=== PATIENT | female | born 1965 | race Hispanic/Latino ===

== ENCOUNTER 2024-09-04 13:38 | Inpatient (IN) | payer OTHER, SELFPAY ==
--- NOTE | ~2024-09-04 | US_ITS ---
EXAM: RENAL ULTRASOUND HISTORY: marked hydro on CT COMPARISON: Reference is made to a CT of the abdomen and pelvis performed 90 minutes earlier, for whi ch bladder decompression was requested followed by bilateral renal ultrasound to ensure resolution of the hydronephrosis seen on CT examination. FINDINGS: RIGHT KIDNEY: 13.8 x 7.7 x 6.2 cm. Severe hydroureteronephrosis persists. LEFT KIDNEY: 12.5 x 6.1 x 4.9 cm Mild hydroureteronephrosis persists. BLADDER: Significant bladder distention with thickened douglas. Despite prolonged interrogation, neither ureteral jet was visualized. IMPRESSION: Severe right-sided and mild left-sided hydroureteronephrosis with persistent bladder distention and n onvisualization of the ureteral jets. Recommend bladder decompression followed by repeat ultrasound to confirm resolution of the aforementi oned hydroureteronephrosis. Reviewed, dictated and finalized at location A. ITY APPRAISER IMPRESSION: Severe right-sided and mild left-sided hydroureteronephrosis with persistent bl adder distention and nonvisualization of the ureteral jets. Recommend bladder decompression followed by repeat ultrasound to confirm resolu tion of the aforementioned hydroureteronephrosis.
--- NOTE | ~2024-09-04 | CT_ITS ---
CLINICAL INDICATION: Lower back pain with urinary tract infection and hematuria COMPARISON: None. TECHNIQUE: Multiple contiguous axial images of the abdomen and pelvis were performed without the admi nistration of intravenous contrast The dose-length product (DLP) was 1661.26 mGy-cm. Automated exposure control and iterative reconstruction technique were employed. FINDINGS/OBSERVATIONS: Visualized lower thorax: The bilateral lung bases are clear. The heart is of normal size, without pericardial effusion. Abdomen: Significant right-sided hydroureteronephrosis without a discrete source of obstruction identified. The bladder is significantly distended with surrounding inflammatory change, consistent with patient' s history and presentation. Small left-sided hydroureteronephrosis, likely secondary to bladder distention. The gallbladder is surgically absent. Colonic diverticulosis without surrounding inflammatory change. Remainder of examination is unremarkable. IMPRESSION: Significant right-sided hydroureteronephrosis without a discrete source of obstruction identified Marked bladder distention with surrounding inflammatory change for which compression and post decompr ession renal ultrasound is suggested. Reviewed, dictated and finalized at location A. VERY ROOM NURSE IMPRESSION: Significant right-sided hydroureteronephrosis without a discrete source of obst ruction identified Marked bladder distention with surrounding inflammatory change for which compre ssion and post decompression renal ultrasound is suggested.
--- NOTE | ~2024-09-04 | NM_ITS ---
EXAMINATION: RIKKI arrieta renal scan DATE: 09/10/2024 13:13 INDICATION: Hydronephrosis. TECHNIQUE: A 0.2 mCi Tc-99m MAG3 was administered IV. 40 mg furosemide was administered IV immediate ly afterward. The patient was scanned in the supine position. A posterior abdominal radionuclide lissy ogram was obtained. A subsequent time course of static images of the kidneys, ureters, and bladder wa s obtained. COMPARISON: CT abdomen and pelvis 09/04/2024, ultrasound 09/07/2024 FINDINGS: The posterior abdominal radionuclide angiogram and sequential static images show normal siz e, position, and morphology of the kidneys. Peak renal parenchymal uptake was 3 min in right kidney a nd 2 min in left kidney (normal peak 3-5 minutes). The relative early renal uptake was 50% on the ri ght and 50% on the left (<40% is abnormal). No abnormalities of the ureters or bladder are seen. T1/2 for clearance of activity from the right kidney and proximal collecting system was 17 minutes. T1/2 for clearance of activity from the left kidney and proximal collecting system was 12 minutes. IMPRESSION: 1. Symmetric kidney function. 2. Moderately delayed contrast clearance on the right, consistent with partial obstruction that is l ikely clinically significant. 3. Mildly delayed contrast clearance on the left, consistent with low grade obstruction of questionab le clinical significance. Reviewed, dictated and finalized at location A. ANY MARKER IMPRESSION: 1. Symmetric kidney function. 2. Moderately delayed contrast clearance on the right, consistent with partial obstruction that is likely clinically significant. 3. Mildly delayed contrast clearance on the left, consistent with low grade obs truction of questionable clinical significance.
--- NOTE | ~2024-09-04 | US_ITS ---
EXAMINATION: US renal BI DATE: 09/07/2024 09:23 INDICATION: Right hydronephrosis and bladder distention. TECHNIQUE: Multiple ultrasound grayscale images of the kidneys were obtained. COMPARISON: None. FINDINGS: The right kidney measures 13.0 x 6.7 x 6.8 cm. The left kidney measures 11.4 x 7.1 x 5.5 cm. The kidn eys demonstrate normal echogenicity. No interval change in severe right-sided and mild left-sided hyd ronephrosis. No stones identified. There is a Kothari catheter within the bladder which is distended on the initial imaging measuring 11.5 x 8.0 x 9.9 cm with calculated volume of 636 mL. There is diffuse bladder wall thickening. The bladder is decompressed following unclamping of the Kothari catheter. Sli ght decrease in moderate right hydronephrosis following decompression of the bladder.. IMPRESSION: 1. Persistent mild left-sided and severe right-sided hydronephrosis with the bladder distended, the with the right hydronephrosis to moderate severity following decompression of the bladder. 2. Diffuse bladder wall thickening which could be due to cystitis or chronic outlet obstruction. Reviewed, dictated and finalized at location [facility]. [employer] IMPRESSION: 1. Persistent mild left-sided and severe right-sided hydronephrosis with the b ladder distended, the with the right hydronephrosis to moderate severity follow ing decompression of the bladder. 2. Diffuse bladder wall thickening which could be due to cystitis or chronic ou tlet obstruction.
--- OUTSIDE RECORDS SUMMARY | 2024-09-04 13:47 | XMS_ITS | Patient Health Summary ---
Author Organization [facility] Address [address] [place] [address] Care Team Providers Care Mail List Librarian Name Role Phone Odalis Mcnally MD Primary Care Provider [phone] Note from [facility],non-owned Affiliates and Associated Physician Practices is amultiple site organization consisting of ambulatory clinics and hospital sitesin [place], [place] and [place]. This disclosure is being madepursuant to the Care Everywhere program and may not contain all information available regarding this patient. Last updated 18.[facility] Allergies No known active allergies Medications * Be aware that medications may not be up to date on this document. Alwaysverify current medications with the patient. * ATORVASTATIN CALCIUM PO * benzonatate (TESSALON) 200 MG capsule(Started 12/01/2018) Take 1 capsule by mouth 3 times daily as needed for Cough Social History Tobacco Use Types Packs/Day Years Used Date Smoking Tobacco: Never Smokeless Tobacco: Never Sex and Gender Information Value Date Recorded Sex Assigned at Not on file Gender Identity Not on file Sexual Orientation Not on file Last Filed Vital Signs Vital Sign Reading Time Taken Comments Blood Pressure 138/80 12/01/2018 5:48 PM CDT Pulse 81 12/01/2018 5:48 PM CDT Temperature 36.7 ??C (98 ??F) 12/01/2018 5:48 PM CDT Respiratory Rate 16 01/20/2018 4:53 PM CDT Oxygen Saturation 98% 12/01/2018 5:48 PM CDT Inhaled Oxygen Concentration - - Weight 102.1 kg (225 lb) 12/01/2018 5:48 PM CDT Height 160 cm (5' 3 ) 12/01/2018 5:48 PM CDT Body Mass Index 39.86 12/01/2018 5:48 PM CDT Procedures * PULSE OXIMETRY - POINT OF CARE (AMB)(Performed 12/01/2018) Performed for Acute URI Results * PULSE OXIMETRY - POINT OF CARE (AMB) (12/01/2018) Oximetry POCT 98 0 - 100 % QC Verified Yes Yes Blood BLOOD SPECIMEN / Unknown 12/01/2018 Megan Shaikh APRN-[employer] DIRECT[facility] LAB - POINT OF CARE ORDERABLES Care Teams Mail List Librarian Relationship Specialty Start Date End Date Odalis Mcnally MD [address] [place] [phone] PCP - General Family Medicine 01/20/18
--- OUTSIDE RECORDS SUMMARY | 2024-09-04 13:47 | XMS_ITS | Data Portability ---
Author Organization [facility] [employer], Main Office Address [address] [place] [address] Assessment No assessment recorded. Plan of Treatment Reminders Order Date Submit Date Provider Last Modified By Organization Details Last Modified Time Details Appointments None recorded. Lab pap, IG + reflex HR HPV 2022 023 ANGELES [facility], [address], [address], [place], [address], 3 11:14:24 noninvasive colorectal cancer DNA + occult blood screening, QL, stool 2022 023 [email or web address] [address], [address], [place], [address], 3 08:32:59 TSH + free T4, serum 2023 024 [facility], [address], [address], [place], [address], 4 08:28:52 HbA1c (hemoglobin A1c), blood 2023 024 [email or web address], [address], [address], [place], [address], 4 08:28:52 noninvasive colorectal cancer DNA + occult blood screening, QL, stool 2023 024 [facility] (Cologuard Orders Only), [address], [address], [place], [address], 4 13:59:23 lipid panel, serum 2023 024 [facility], [address], [address], [place], [address], 4 08:28:52 CMP, serum or plasma 2023 024 [facility], [address], [address], [place], [address], 4 08:28:52 HbA1c (hemoglobin A1c), blood 2023 024 [facility], [address], [address], [place], [address], 4 08:23:58 urinalysis, dipstick 2023 024 [facility], [address] [place] [address], [address], 4 09:17:25 pap, IG + reflex HR HPV 2024 025 [facility], [address], [address], [place], [address], 5 23:15:07 urinalysis, dipstick 2024 025 [facility], [address] [place] [address], [address], 5 09:31:03 Referral None recorded. Procedures None recorded. Surgeries None recorded. Imaging MAMMO, screening, digital, bilateral - Please call pt to schedule 2023 [email or web address] [place] [address] ([facility] Sched[facility]), [address] [place], [address], 4 10:03:46 Medication Orders nitrofurant oin macrocrysta l 100 mg capsule 2023 024 [facility], [address] [place] [address], [address], 5 08:59:17 metformin ER 500 mg tablet,exte nded release 24 hr 2023 024 [facility], [address] [place] [address], [address], 4 08:59:46 losartan 50 mg tablet 2023 024 [facility], [address] [place] [address], [address], 4 08:59:45 atorvastati n 20 mg tablet 2023 024 [facility], [address] [place] [address], [address], 4 08:59:46 Macrobid 100 mg capsule 2024 025 [facility], [address] [place] [address], [address], 5 09:13:14 Patient TargetsNo targets recorded. Patient Instructions Encounter Date Encounter Id Patient Instructions Last Modified By Organization Details Last Modified Time 05/18/2023 [id number] FU annually for wwe with pap. [email or web address] Not available 05/18/2023 08:59:18 12/28/2023 [id number] type 2 diabetes: care instructions [email or web address] Not available 12/28/2023 08:56:21 Reason for Referral None Reported. Results Created Date Observation Date Name Description Value Unit Range Abnormal Flag Note LastModifiedBy Organization Detail LastModifiedTime 05/17/20 24 05/17/2024 COLOG UARD cologuard result Cancel led - Order d not applic able Not Available [facility] (Cologuard Orders Only) [address], [place], [address], 05/17/2024 08:12:50 11/22/19 24 11/22/2023 COLOG UARD cologuard result Cancel led - Duplic ate Order not applic able Not Available [facility] (Cologuard Orders Only) [address], [place], [address], 11/22/2023 13:59:23 05/06/20 23 05/06/2023 COMPR EHENS SKIP METAB OLIC PANEL glucose 113 mg/dL 65-99 high Fasti ng refer ence inter beau For someo ne witho ut known diabe yue, a gluco se value betwe en 100 and 125 mg/dL is consi stent with predi abete s and shoul d be confi rmed with a follo w-up test. Not Available [address], [address], 05/06/2023 22:21:00 05/06/20 23 05/06/2023 COMPR EHENS SKIP METAB OLIC PANEL urea nitrogen (BUN) 16 mg/dL 7-25 normal Not Available [address], [address], 05/06/2023 22:21:00 05/06/20 23 05/06/2023 COMPR EHENS SKIP METAB OLIC PANEL creatinine 0.66 mg/dL 0.50-1 .03 normal Not Available [address], [address], 05/06/2023 22:21:00 05/06/20 23 05/06/2023 COMPR EHENS SKIP METAB OLIC PANEL eGFR 102 mL/mi n/1.7 3m2 > or = 60 normal Not Available [address], [address], 05/06/2023 22:21:00 05/06/20 23 05/06/2023 COMPR EHENS SKIP METAB OLIC PANEL BUN/creatini ne ratio SEE NOTE: (calc ) 6-22 Not Repor rivera: BUN and Creat inine are withi n refer ence range . Not Available [address], [address], 05/06/2023 22:21:00 05/06/20 23 05/06/2023 COMPR EHENS SKIP METAB OLIC PANEL sodium 139 mmol/ L 135-14 6 normal Not Available [address], [address], 05/06/2023 22:21:00 05/06/20 23 05/06/2023 COMPR EHENS SKIP METAB OLIC PANEL potassium 4.2 mmol/ L 3.5-5. 3 normal Not Available [address], [address], 05/06/2023 22:21:00 05/06/20 23 05/06/2023 COMPR EHENS SKIP METAB OLIC PANEL chloride 104 mmol/ L 98-110 normal Not Available [address], [address], 05/06/2023 22:21:00 05/06/20 23 05/06/2023 COMPR EHENS SKIP METAB OLIC PANEL carbon dioxide 28 mmol/ L 20-32 normal Not Available [address], [address], 05/06/2023 22:21:00 05/06/20 23 05/06/2023 COMPR EHENS SKIP METAB OLIC PANEL calcium 9.3 mg/dL 8.6-10 .4 normal Not Available [address], [address], 05/06/2023 22:21:00 05/06/20 23 05/06/2023 COMPR EHENS SKIP METAB OLIC PANEL protein, total 7.4 g/dL 6.1-8. 1 normal Not Available [address], [address], 05/06/2023 22:21:00 05/06/20 23 05/06/2023 COMPR EHENS SKIP METAB OLIC PANEL albumin 4.0 g/dL 3.6-5. 1 normal Not Available [address], [address], 05/06/2023 22:21:00 05/06/20 23 05/06/2023 COMPR EHENS SKIP METAB OLIC PANEL globulin 3.4 g/dL_ (calc ) 1.9-3. 7 normal Not Available [address], [address], 05/06/2023 22:21:00 05/06/20 23 05/06/2023 COMPR EHENS SKIP METAB OLIC PANEL albumin/glob ulin ratio 1.2 (calc ) 1.0-2. 5 normal Not Available [address], [address], 05/06/2023 22:21:00 05/06/20 23 05/06/2023 COMPR EHENS SKIP METAB OLIC PANEL bilirubin, total 0.7 mg/dL 0.2-1. 2 normal Not Available [address], [address], 05/06/2023 22:21:00 05/06/20 23 05/06/2023 COMPR EHENS SKIP METAB OLIC PANEL alkaline phosphatase 128 U/L 37-153 normal Not Available [facility] [employer] [facility] [employer] [address], [address], 05/06/2023 22:21:00 05/06/20 23 05/06/2023 COMPR EHENS SKIP METAB OLIC PANEL AST 76 U/L 10-35 high Not Available [address], [address], 05/06/2023 22:21:00 05/06/20 23 05/06/2023 COMPR EHENS SKIP METAB OLIC PANEL ALT 91 U/L 6-29 high Not Available [facility] [address] [place], [address], 05/06/2023 22:21:00 05/06/20 23 05/06/2023 HEMOG LOBIN A1C hemoglobin A1C 6.4 %_of_ total _HGB <5.7 high For someo ne witho ut known diabe yue, a hemog lobin A1c value betwe en 5.7% and 6.4% is consi stent with predi abete s and shoul d be confi rmed with a follo w-up test. For someo ne with known diabe yue, a value <7% indic ates that their diabe yue is well contr olled . A1c targe ts shoul d be indiv idual ized based on durat ion of diabe yue, age, comor bid condi tions , and other consi derat ions. This assay resul t is consi stent with an incre ased risk of diabe yue. Curre ntly, no conse nsus exist s regar ding use of hemog lobin A1c for diagn osis of diabe yue for child stew. Not Available [facility] [address] [place], [address], 05/06/2023 22:21:02 05/18/2005/23/2023 PAP THINP REP W/HPV -HR diagnosis: Commen t . TANA VALDIVIA FOR INTRA EPITH ELIAL MESERET Ruby OR PATTIE ACHARYA . Not Available [facility] (Lab) [address] [place], [address], 05/23/2023 11:10:07 05/18/2005/23/2023 PAP THINP REP W/HPV -HR specimen adequacy: Commen t . Satis facto debora for evalu ation . Endoc ervic al and/o r squam ous m etapl astic cells (endo cervi sabas compo nent) are prese nt. Not Available [facility] (Lab) [address] [place], [address], 05/23/2023 11:10:07 05/18/2005/23/2023 PAP THINP REP W/HPV -HR performed by: Daryn brooks . Jim hy Willi ams, Cytot echno logis t (ASCP ) Not Available [facility] (Lab) [address] [place], [address], 05/23/2023 11:10:07 05/18/2005/23/2023 PAP THINP REP W/HPV -HR . . Not Available [facility] (Lab) [address] [place], [address], 05/23/2023 11:10:07 05/18/2005/23/2023 PAP THINP REP W/HPV -HR note: Daryn brooks The Pap smear is a scree mitzy test desig ta to aid in the detec tion of lluvia ligna nt and malig nant condi tions of the uteri ne cervi x. It is not a diagn ostic proce dure and shoul d not be used as the sole means of detec ting cervi sabas cance r. Both false -posi tive and false -nega tive repor ts do occur . . Not Available [facility] (Lab) [address] [place], [address], 05/23/2023 11:10:07 05/18/2005/23/2023 PAP THINP REP W/HPV -HR test methodology: Daryn brooks This liqui d based ThinP rep(R ) pap test was scree ta with the use of an image guide rambo ochoa. Not Available [facility] (Lab) [address] [place], [address], 05/23/2023 11:10:07 05/18/2005/23/2023 PAP THINP REP W/HPV -HR aptima HPV, reflex Negati ve negati ve This nucle ic acid ampli ficat ion test detec ts fourt een high- risk HPV types (16,1 8,31, 33,35 ,39,4 5,51, 52,56 ,58,5 9,66, 68) witho ut diffe renti ation . Perfo rmed at: [facility] [place] [facility] [address] , [place] [address] Lab Direc tor: Sumeet lowe MD, Phone : [phone] Perfo rmed at: [facility] [place] [address] , [place] [address] Lab Direc tor: Lexus fournier MD, Phone : [phone] Perfo rmed at: =[facility] [place] [address] , [place] [address] Lab Direc tor: Lexus fournier MD, Phone : [phone] Not Available [facility] (Lab) [address] [place], [address], 05/23/2023 11:10:07 12/17/19 24 12/18/2023 LIPID PANEL , STAND JAMES cholesterol, total 155 mg/dL <200 normal Not Available [facility] [address] [place], [address], 12/18/2023 14:18:14 12/17/19 24 12/18/2023 LIPID PANEL , STAND JAMES HDL cholesterol 54 mg/dL > or = 50 normal Not Available [facility] [place] [address] [place], [address], 12/18/2023 14:18:14 12/17/19 24 12/18/2023 LIPID PANEL , STAND JAMES triglyceride s 110 mg/dL <150 normal Not Available [facility] [address] [place], [address], 12/18/2023 14:18:14 12/17/19 24 12/18/2023 LIPID PANEL , STAND JAMES LDL-choleste rol 80 mg/dL _(sabas c) normal Refer ence range : <100 Corin able range <100 mg/dL for prima ry preve ntion ; <70 mg/dL for patie nts with CHD or diabe tic patie nts with > or = 2 CHD risk facto rs. LDL-C is now calcu lated using the Dasia n-Hop kins calcu jorgefloyd n, which is a valid ated novel metho d provi ding gabe r accur acy than the Fried iliana equat ion in the estim ation of LDL-C . Dasia ruby SS et al. MADAN. 2013; 310(1 9): 2061- 2068 (http ://ed ucati on.Qu [employer]. com/f aq/FA Q164) Not Available [facility] [address] [place], [address], 12/18/2023 14:18:14 12/17/1912/18/2023 LIPID PANEL , STAND JAMES chol/HDLC ratio 2.9 (calc ) <5.0 normal Not Available [facility] [place] [address] [place], [address], 12/18/2023 14:18:14 12/17/19 24 12/18/2023 LIPID PANEL , STAND JAMES non HDL cholesterol 101 mg/dL _(sabas c) <130 normal For patie nts with diabe yue plus 1 major ASCVD risk facto r, treat ing to a non-H DL-C goal of <100 mg/dL (LDL- C of <70 mg/dL ) is consi dered a thera peutamarilys c optio n. Not Available [facility] [place] [address] [place], [address], 12/18/2023 14:18:14 12/17/1912/18/2023 TSH+F REE T4 TSH 2.31 mIU/L 0.40-4 .50 normal Not Available [facility] [place] [address] [place], [address], 12/18/2023 14:18:17 12/17/19 24 12/18/2023 TSH+F REE T4 T4, free 1.1 NG/dL 0.8-1. 8 normal Not Available [address], [address], 12/18/2023 14:18:17 12/17/19 24 12/18/2023 COMPR EHENS SKIP METAB OLIC PANEL glucose 131 mg/dL 65-99 high Fasti ng refer ence inter beau For someo ne witho ut known diabe yue, a gluco se value >125 mg/dL indic ates that they may have diabe yue and this shoul d be confi rmed with a follo w-up test. Not Available [address], [address], 12/18/2023 14:18:18 12/17/19 24 12/18/2023 COMPR EHENS SKIP METAB OLIC PANEL urea nitrogen (BUN) 16 mg/dL 7-25 normal Not Available [address], [address], 12/18/2023 14:18:18 12/17/19 24 12/18/2023 COMPR EHENS SKIP METAB OLIC PANEL creatinine 0.64 mg/dL 0.50-1 .03 normal Not Available [address], [address], 12/18/2023 14:18:18 12/17/19 24 12/18/2023 COMPR EHENS SKIP METAB OLIC PANEL eGFR 103 mL/mi n/1.7 3m2 > or = 60 normal Not Available [address], [address], 12/18/2023 14:18:18 12/17/19 24 12/18/2023 COMPR EHENS SKIP METAB OLIC PANEL BUN/creatini ne ratio SEE NOTE: (calc ) 6-22 Not Repor rivera: BUN and Creat inine are withi n refer ence range . Not Available [facility] [address] [place], [address], 12/18/2023 14:18:18 12/17/19 24 12/18/2023 COMPR EHENS SKIP METAB OLIC PANEL sodium 138 mmol/ L 135-14 6 normal Not Available [address], [address], 12/18/2023 14:18:18 12/17/19 24 12/18/2023 COMPR EHENS SKIP METAB OLIC PANEL potassium 4.1 mmol/ L 3.5-5. 3 normal Not Available [address], [address], 12/18/2023 14:18:18 12/17/19 24 12/18/2023 COMPR EHENS SKIP METAB OLIC PANEL chloride 105 mmol/ L 98-110 normal Not Available [address], [address], 12/18/2023 14:18:18 12/17/19 24 12/18/2023 COMPR EHENS SKIP METAB OLIC PANEL carbon dioxide 25 mmol/ L 20-32 normal Not Available [address], [address], 12/18/2023 14:18:18 12/17/19 24 12/18/2023 COMPR EHENS SKIP METAB OLIC PANEL calcium 9.1 mg/dL 8.6-10 .4 normal Not Available [address] [place], [address], 12/18/2023 14:18:18 12/17/19 24 12/18/2023 COMPR EHENS SKIP METAB OLIC PANEL protein, total 7.1 g/dL 6.1-8. 1 normal Not Available [facility] [address], [address], 12/18/2023 14:18:18 12/17/19 24 12/18/2023 COMPR EHENS SKIP METAB OLIC PANEL albumin 3.9 g/dL 3.6-5. 1 normal Not Available [address], [address], 12/18/2023 14:18:18 12/17/19 24 12/18/2023 COMPR EHENS SKIP METAB OLIC PANEL globulin 3.2 g/dL_ (calc ) 1.9-3. 7 normal Not Available [address], [address], 12/18/2023 14:18:18 12/17/19 24 12/18/2023 COMPR EHENS SKIP METAB OLIC PANEL albumin/glob ulin ratio 1.2 (calc ) 1.0-2. 5 normal Not Available [address], [address], 12/18/2023 14:18:18 12/17/19 24 12/18/2023 COMPR EHENS SKIP METAB OLIC PANEL bilirubin, total 0.6 mg/dL 0.2-1. 2 normal Not Available [address], [address], 12/18/2023 14:18:18 12/17/19 24 12/18/2023 COMPR EHENS SKIP METAB OLIC PANEL alkaline phosphatase 109 U/L 37-153 normal Not Available [address], [address], 12/18/2023 14:18:18 12/17/19 24 12/18/2023 COMPR EHENS SKIP METAB OLIC PANEL AST 27 U/L 10-35 normal Not Available [address], [address], 12/18/2023 14:18:18 12/17/19 24 12/18/2023 COMPR EHENS SKIP METAB OLIC PANEL ALT 30 U/L 6-29 high Not Available [facility] [id number] [place], [address], 12/18/2023 14:18:18 12/17/19 24 12/18/2023 HEMOG LOBIN A1C hemoglobin A1C 6.5 %_of_ total _HGB <5.7 high For someo ne witho ut known diabe yue, a hemog lobin A1c value of 6.5% or great er indic ates that they may have diabe yue and this shoul d be confi rmed with a follo w-up test. For someo ne with known diabe yue, a value <7% indic ates that their diabe yue is well contr olled and a value great er than or equal to 7% indic ates subop timal contr ol. A1c targe ts shoul d be indiv idual ized based on durat ion of diabe yue, age, comor bid condi tions , and other consi derat ions. Curre ntly, no conse nsus exist s regar ding use of hemog lobin A1c for diagn osis of diabe yue for child stew. This test was perfo rmed on the [facility] n[facility]av c503 platf orm. Effec tive , a rola fournier in test platf orms from the [facility] t[facility] to the [facility] nir[facility] c503 may have shift ed HbA1c resul ts hima red to histo rical resul ts. Based on labor atory valid ation testi ng condu cted at [facility] , the [facility] platf orm relat skip to the [facility] platf orm had an avera ge incre ase in HbA1c value of < or = 0.3%. This diffe rence is withi n accep rivera varia bilit y estab lishe d by the [employer] hemog lobin Stand ardiz ation Progr am. Note that not all indiv idual s will have had a shift in their resul ts and direc t hima rison s betwe en histo rical and curre nt resul ts for testi ng condu cted on diffe rent platf orms is not recom edith d. Not Available [facility] [address] [place], [address], 12/18/2023 14:18:19 05/04/2005/04/2024 HEMOG LOBIN A1C hemoglobin A1C 6.1 %_of_ total _HGB <5.7 high For someo ne witho ut known diabe yue, a hemog lobin A1c value betwe en 5.7% and 6.4% is consi stent with predi abete s and shoul d be confi rmed with a follo w-up test. For someo ne with known diabe yue, a value <7% indic ates that their diabe yue is well contr olled . A1c targe ts shoul d be indiv idual ized based on durat ion of diabe yue, age, comor bid condi tions , and other consi derat ions. This assay resul t is consi stent with an incre ased risk of diabe yue. Curre ntly, no conse nsus exist s regar ding use of hemog lobin A1c for diagn osis of diabe yue for child stew. Not Available [facility] [address] [address] , [place], [address], 05/04/2024 23:18:12 05/22/2005/22/2024 urina lysis , dipst ick Leukocytes (reference range: negative zarina/? ? ?l) Large Not Available [address], [address], 05/22/2024 08:52:40 05/22/20 24 05/22/2024 urina lysis , dipst ick Nitrite (reference rage: negative mg/dl) negati ve Not Available [address], [address], 05/22/2024 08:52:40 05/22/20 24 05/22/2024 urina lysis , dipst ick Urobilinogen (reference range: 0.2-1 mg/dl) 0.2 Not Available [address], [address], 05/22/2024 08:52:40 05/22/2005/22/2024 urina lysis , dipst ick Protein (reference range: negative mg/dl) Negati ve Not Available [address], [address], 05/22/2024 08:52:40 05/22/2005/22/2024 urina lysis , dipst ick pH (reference range: 5-7) 5.0 Not Available [address], [address], 05/22/2024 08:52:40 05/22/2005/22/2024 urina lysis , dipst ick Blood (reference range: negative Demario/? ? ?l) Small Not Available [address], [address], 05/22/2024 08:52:40 05/22/2005/22/2024 urina lysis , dipst ick Specific [place] (reference range: 1.005-1.030) 1.000 Not Available [address], [address], 05/22/2024 08:52:40 05/22/2005/22/2024 urina lysis , dipst ick Ketone (reference range: negative mg/dl) Trace Not Available [address], [address], 05/22/2024 08:52:40 05/22/2005/22/2024 urina lysis , dipst ick Bilirubin (reference range: negative mg/dl) Negati ve Not Available [address] [place], [address], 05/22/2024 08:52:40 05/22/2005/22/2024 urina lysis , dipst ick Glucose (reference range: negative mg/dl) Negati ve Not Available [address], [address], 05/22/2024 08:52:40 05/22/2005/22/2024 urina lysis , dipst ick Appearance Clear Not Available [address], [address], 05/22/2024 08:52:40 05/22/2005/22/2024 urina lysis , dipst ick Color Dark Yellow Not Available [address], [address], 05/22/2024 08:52:40 08/29/1908/29/2024 urina lysis , dipst ick Leukocytes (reference range: negative zarina/? ? ?l) Small Not Available [address], [address], 08/29/2024 09:12:47 08/29/1908/29/2024 urina lysis , dipst ick Nitrite (reference rage: negative mg/dl) negati ve Not Available [address], [address], 08/29/2024 09:12:47 08/29/1908/29/2024 urina lysis , dipst ick Urobilinogen (reference range: 0.2-1 mg/dl) 0.2 Not Available [address], [address], 08/29/2024 09:12:47 08/29/1908/29/2024 urina lysis , dipst ick Protein (reference range: negative mg/dl) Negati ve Not Available [address], [address], 08/29/2024 09:12:47 08/29/1908/29/2024 urina lysis , dipst ick pH (reference range: 5-7) 5.0 Not Available [address], [address], 08/29/2024 09:12:47 08/29/1908/29/2024 urina lysis , dipst ick Blood (reference range: negative Demario/? ? ?l) Non-He molyze d: Trace Not Available [address], [address], 08/29/2024 09:12:47 08/29/1908/29/2024 urina lysis , dipst ick Specific [place] (reference range: 1.005-1.030) 1.005 Not Available [address], [address], 08/29/2024 09:12:47 08/29/1908/29/2024 urina lysis , dipst ick Ketone (reference range: negative mg/dl) Negati ve Not Available [address], [address], 08/29/2024 09:12:47 08/29/1908/29/2024 urina lysis , dipst ick Bilirubin (reference range: negative mg/dl) Negati ve Not Available [address], [address], 08/29/2024 09:12:47 08/29/19 25 08/29/2024 urina lysis , dipst ick Glucose (reference range: negative mg/dl) Negati ve Not Available [address], [address], 08/29/2024 09:12:47 08/29/19 25 08/29/2024 urina lysis , dipst ick Appearance Clear Not Available [address], [address], 08/29/2024 09:12:47 08/29/1908/29/2024 urina lysis , dipst ick Color Pale Yellow Not Available [address], [address], 08/29/2024 09:12:47 05/13/20 23 05/13/2023 scree mitzy breas t dayana, bilat [facility] [place] [id number] Patien t Name: FARZANEH MOSS Access ion #: [id number] Sex: F : 1964 4 Dictat ed By: Adriana Newtno Attend ing Physic arely: LUCILLE BO Orderi Physic arely: LUCILLE BO Exam Date: 2022 07:35 AM Exam Name: MG SCRN BREAST DAYANA BILAT Admitt ing Diagno sis(es ): SCREEN ING MAMMOG [place]WR[place] WITH TOMOSY NTHESI S: REASON FOR EXAM: SCREEN ING MAMMOG [place]WRENCE COMPAR HUDSON: 2 TECHNI QUE: Bilate ral CC and MLO views obtain ed. Images were obtain ed using a Digita l Tomosy nthesi s Unit. Standa rd 2D and 3D Tomosy nthesi s images were review ed. FINDIN GS: BREAST COMPOS ITION: There are scatte red areas of fibrog landul ar densit y in the bilate ral breast s. In the right breast , no asymme trical parenc hymal patter n, jonathan ectura l distor tion, pleomo rphic microc alcifi cation s or masses . In the left breast , no asymme trical parenc hymal patter n, jonathan ectura l distor tion, pleomo rphic microc alcifi cation s or masses . IMPRES THOR: No findin gs of malign frantz. Recomm end annual mammog lawrence. BIRADS : 2 - Benign Electr onical ly Signed by: Adriana Newton at 2022 10:52: 07 AM Page 1 [email or web address] [facility] (Imaging) [address] [place], [address], 05/18/2023 08:56:25 06/07/20 24 06/07/2024 MAMMO , scree mitzy, digit al, bilat eral No observ ation record ed. [email or web address] [facility] [address] [place], [address], 06/07/2024 17:42:04 Result Notes None recorded. Problems Name Problem SNOMED Code Status Onset Date Resolution Date Notes Provider Name and Address Organization Details Recorded Time Hyperkalem ia 10981521 Active Not Available [facility] 3 08:10:19 Mammograph y abnormal 760045167 Active Not Available [facility] 3 08:10:19 Increased blood pressure 24741940 Active Not Available [facility] 3 08:10:19 Menorrhagi a 812265174 Active Not Available [facility] 3 08:10:19 Dizziness 998346518 Active Not Available [facility] 3 08:10:19 History of polyp of colon 946276156 Active 2017 Not Available [facility] 3 08:10:19 Hyperlipid emia 74126651 Active Not Available [facility] 3 08:10:19 Essential hypertensi on 02479360 Active 2021 Not Available [facility] 3 08:10:19 Increased liver function 46939308 Active Not Available [facility] 3 08:10:20 Snoring 46332207 Active Not Available [facility] 3 08:10:20 Candidiasi s 30137253 Active Not Available [facility] 3 08:10:20 Urge incontinen ce of urine 13555688 Active Not Available [facility] 3 08:10:20 Benign essential hypertensi on 4811335 Active 2022 Jackie Bo NP [address], [address], [place], [address] , [employer] 3 15:42:56 Acute otitis externa 35969534 Active 2022 Jackie Bo NP [address], [address], [place], [address] , [employer] 3 15:53:38 Obese 633463295 Active 2022 Jackie Bo NP [address], [address], [place], [address] , [employer] 3 13:49:57 Prediabete s 692667962 Completed 202205/22/2024 AGUEDA Howe [address], [place], [address] , [employer] 4 08:59:32 Hyperglyce kamaljit 94485192 Completed 202205/22/2024 AGUEDA Howe [address], [place], [address] , [employer] 4 08:59:29 Pruritic rash 10581847 Active 2022 Jackie Bo NP [address], [address], [place], [address] , [employer] 3 14:57:53 Type 2 diabetes mellitus 86812461 Active 2023 AGUEDA Howe [address] [facility], [address] [place] [address], [place], [address] , [facility] [employer] [facility] 08:56:18 Urinary symptoms 003884332 Active 2023 AGUEDA Howe [address] [facility], [address] [address], [place], [address] , [facility] [employer] [facility] 4 08:52:36 Acute cystitis 85384319 Active 2024 AGUEDA Howe [address] [facility], [address] [address], [place], [address] , [facility] [employer] [facility] 5 09:13:04 Problem Notes None recorded. Procedures Surgical History Date Name Laterality Status Provider Name and Address Organization Details Recorded Time 08/29/19 25 Date of Last Pap Smear completed Jackie Manuel RN [facility] [employer] [facility] 08/29/2024 09:04:07 06/01/20 24 Most Recent Mammogram completed Jackie Manuel RN [facility] [employer] [facility] 08/29/2024 09:03:06 08/01/19 12 Date of Last Colonoscopy completed Not Available [facility] 09/29/2022 08:05:51 Cholecystectomy completed Not Available [facility] 09/29/2022 08:05:51 Tubal Ligation completed Not Available [facility] 09/29/2022 08:05:51 Imaging Results Imaging Date Name Status LastModified by Organiz ation Details LastModified Time 05/13/2023 screening breast dayana, bilat completed [email or web address] [facility] (Imaging) [address] [place], [address], 05/18/2023 08:56:25 06/07/2024 MAMMO, screening, digital, [facility] [address] [place], [address], 06/07/2024 17:42:04 Procedure Notes None recorded. Medical Equipment None Reported. Allergies No known drug allergies Medications Name Sig Start Date Stop Date Status Note LastModified by Organization Details LastModified Time losartan 50 mg tablet TAKE 1 TABLET BY MOUTH ONCE DAILY active Not Available Not Available No t Available azelastin e 0.05 % eye drops 04/27 completed Not Available Not Available Not Available atorvasta tin 20 mg tablet TAKE 1 TABLET BY MOUTH ONCE DAILY active Not Available Not Available No t Available atorvasta tin 10 mg tablet TAKE 1 TABLET BY MOUTH DAILY 06/08 completed Not Available Not Available Not Available benzonata te 200 mg capsule 03/23 completed Not Available Not Available Not Available valacyclo vir 1 gram tablet 03/23 completed Not Available Not Available Not Available Lotrisone 1 %-0.05 % topical cream Apply 1 applicat ion twice a day by topical route. 09/20 completed Not Available Not Available Not Available triamcino lone acetonide 0.1 % topical cream APPLY A THIN LAYER TO THE AFFECTED AREA(S) BY TOPICAL ROUTE 2 TIMES PER DAY for 1 week, prn flare 05/22 completed Not Available Not Available Not Available prednison e 10 mg tablets in a dose pack Take 1 tab by mouth, 3 times a day for 3 daysTake 1 tab by mouth 2 times a day for 2 daysTake 1 tab by mouth once a day for 1 day 10/29 completed Not Available Not Available Not Available Macrobid 100 mg capsule Take 1 capsule every 12 hours by oral route as directed for 3 days. 2024 active Not Available Not Available Not Avai lable meloxicam 7.5 mg tablet 06/08 completed Not Available Not Available Not Available ofloxacin 0.3 % ear drops INSTILL 10 DROPS INTO BOTH EARS DAILY 10/08 completed Not Available Not Available Not Available prednisol one acetate 1 % eye drops,álvaro pension 03/23 completed Not Available Not Available Not Available Kenalog 10 mg/mL suspensio n for injection In office injectio n administ ered by the provider 10/29 completed [facility]: 0003-049 11-18 Not Available Not Available Not Available meclizine 25 mg tablet 09/20 completed Not Available Not Available Not Available sulfaceta mide sodium 10 % eye drops active Not Available Not Available Not Available nitrofura ntoin macrocrys chilo 100 mg capsule Take 1 capsule twice a day by oral route as directed for 5 days. 08/29 completed Not Available Not Available Not Available lisinopri l 10 mg tablet TAKE 1 TABLET BY MOUTH ONCE DAILY 01/03 completed dry cough. changed to losartan 50 mg Not Available Not Available Not Available polymyxin B sulfate 10,000 unit-trim ethoprim 1 mg/mL eye drops 10/08 completed Not Available Not Available Not Available oxybutyni n chloride ER 5 mg tablet,ex tended release 24 hr Take 1 tablet every day by oral route as directed for 90 days. 09/14 completed Not Available Not Available Not Available metformin ER 500 mg tablet,ex tended release 24 hr TAKE 1 TABLET BY MOUTH ONCE DAILY active Not Available Not Available No t Available neomycin- polymyxin -hydrocor t 3.5 mg-10,000 unit/mL-1 % ear drops,álvaro p INSTILL 4 DROPS INTO BOTH EARS THREE TIMES DAILY 04/27 completed Not Available Not Available Not Available ciproflox acin 0.3 %-dexamet hasone 0.1 % ear drops,álvaro pension INSTILL 4 DROPS INTO AFFECTED EAR(S) TWICE DAILY FOR 7 DAYS active Not Available Not Available No t Available Vesicare 5 mg tablet TAKE ONE TABLET BY MOUTH ONCE DAILY 01/17 completed Not Available Not Available Not Available chlorhexi dine gluconate 0.12 % mouthwash 03/23 completed Not Available Not Available Not Available lidocaine (PF) 10 mg/mL (1 %) injection solution In office injectio n administ ered by the provider 10/29 completed [facility]: [id number] 6-17 Not Available Not Available Not Available Vitals Date Recorded Body height Body mass index (BMI) Body weight Body temperature Heart rate Respiratory rate Oxygen saturation Oxygen saturation in Arterial blood by Pulse oximetry Pain severity - 0-10 verbal numeric rating [Score] - Reported Systolic blood pressure Diastolic blood pressure Provider Name and Address Organization Details Last Updated DateTime 3 160.02 cm 46.8 kg/m2 724338. 74 g 96.2 [degF] 80 /min 16 /min 95 % 95 % 0 138 mm[Hg] 84 mm[Hg] Jackie Manuel RN [place] [facility] [employer] 3 08:34:18 Date Recorded Body height Body mass index (BMI) Body weight Body temperature Heart rate Respiratory rate Oxygen saturation Oxygen saturation in Arterial blood by Pulse oximetry Pain severity - 0-10 verbal numeric rating [Score] - Reported Provider Name and Address Organization Details Last Updated DateTime 4 160.02 cm 45.9 kg/m2 329167. 42 g 96.5 [degF] 66 /min 20 /min 98 % 98 % 0 Jackie Manuel RN [facility] [employer] [facility] 4 09:27:16 Date Recorded Systolic blood pressure Diastolic blood pressure Provider Name and Address Organization Details Last Updated DateTime 11/21/2023 138 mm[Hg] 82 mm[Hg] Shelly Gardiner, [employer] [address] [facility], [facility] [address], [address], [facility] [employer] [facility] 11/21/2023 09:47:27 Date Recorded Body height Body mass index (BMI) Body weight Body temperature Heart rate Oxygen saturation Oxygen saturation in Arterial blood by Pulse oximetry Systolic blood pressure Diastolic blood pressure Provider Name and Address Organization Details Last Updated DateTime 4 160.02 cm 45.5 kg/m2 647472. 59 g 97.3 [degF] 70 /min 97 % 97 % 150 mm[Hg] 87 mm[Hg] Racquel Salinas MA [facility] [employer] [facility] 4 08:40:26 Date Recorded Body height Body mass index (BMI) Body weight Body temperature Heart rate Respiratory rate Oxygen saturation Oxygen saturation in Arterial blood by Pulse oximetry Pain severity - 0-10 verbal numeric rating [Score] - Reported Systolic blood pressure Diastolic blood pressure Provider Name and Address Organization Details Last Updated DateTime 4 160.02 cm 42.2 kg/m2 039447. 43 g 97.3 [degF] 63 /min 20 /min 97 % 97 % 0 148 mm[Hg] 84 mm[Hg] Jackie Manuel RN [facility] [employer] [facility] 4 08:40:33 Date Recorded Body height Body mass index (BMI) Body weight Body temperature Heart rate Respiratory rate Oxygen saturation Oxygen saturation in Arterial blood by Pulse oximetry Pain severity - 0-10 verbal numeric rating [Score] - Reported Systolic blood pressure Diastolic blood pressure Provider Name and Address Organization Details Last Updated DateTime 5 160.02 cm 43.5 kg/m2 824501. 88 g 97.5 [degF] 71 /min 20 /min 97 % 97 % 0 142 mm[Hg] 86 mm[Hg] Jackie Manuel RN [facility] 09:02:13 Social History Question Answer Notes LastModified by Organizat ion Details LastModified Time Tobacco Smoking Status Never Smoker Jackie Manuel RN [facility], [facility] 04/27/2023 14:30:54 Do You Have An Advance Directive? Yes Information not available 04/27/2023 What Is Your Level Of Alcohol Consumption? Occasional [id number] Information not available 09/29/2022 Is Blood Transfusion Acceptable In An Emergency? Yes Information not available 04/27/2023 What Is Your Level Of Caffeine Consumption? Heavy Diet Dr. Mazariegos Information not available 04/27/2023 What Is Your Code Status? Full Code Information not available 04/27/2023 In The 14 Days Before Symptom Onset, Have You Had Close Contact With A Laboratory-confi rmed COVID-19 While That Case Was Ill? No Information not available 04/27/2023 In The 14 Days Before Symptom Onset, Have You Had Close Contact With A Person Who Is Under Investigation For COVID-19 While That Person Was Ill? No Information not available 04/27/2023 Are You Currently Employed? Yes Information not available 04/27/2023 What Type Of Diet Are You Following? 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 1 Information not available 04/27/2023 On Those Days That You Engage In Moderate To Strenuous Exercise, How Many Minutes, On Average, Do You Exercise? 60 Information not available 04/27/2023 Have There Been Any Changes To Your Family Or Social Situation? No Information not available 04/27/2023 Do You Use Insect Repellent Routinely? No Information not available 04/27/2023 Where Do You Live? SingleLevelHouse Information not available 04/27/2023 Do You Have A Medical Power Of Maker Up Folding? Yes Information not available 04/27/2023 How Many Children Do You Have? 2 Information not available 04/27/2023 Do You Have Any Pets? Yes Information not available 04/27/2023 What Is Your Relationship Status? Information not available 04/27/2023 Do You Use Your Seat Belt Or Car Seat Routinely? Yes Information not available 04/27/2023 Do You Have Smoke And Carbon Monoxide Detectors In Your Home? Yes Information not available 04/27/2023 Are There Any Smokers In Your House? No Information not available 04/27/2023 Do You Participate In Social Media? Yes Information not available 04/27/2023 What Types Of Sporting Activities Do You Participate In? Walk Information not available 04/27/2023 Do You Feel Stressed (tense, Restless, Nervous, Or Anxious, Or Unable To Sleep At Night)? [id number] Information not available 04/27/2023 Do You Use Sunscreen Routinely? No Information not available 04/27/2023 Have You Recently Traveled Abroad? No Information not available 04/27/2023 Do You Or Have You Ever Used Any Other Forms Of Tobacco Or Nicotine? No [email or web address] Information not available 04/27/2023 Sex: Female Functional Status Question Answer Note LastModified by Organizat ion Details LastModified Time What is your exercise level? Occasional Information not available 04/27/2023 Mental Status None recorded. Family History Relationship Description Onset Age of this Age Resolved Age Notes LastModified by Organization Details LastModified Time Father Heart disease [id number] Not available 09/29/2022 08:05:55 Father Diabetes mellitus [id number] Not available 09/29/2022 08:05:55 Father Family history of stroke [email or web address] Not available 11/20 09:15:57 Father Essential hypertension [email or web address] Not available 09:15:57 Mother Heart disease [id number] Not available 09/29/2022 08:05:55 Mother Family history of stroke [email or web address] Not available 11/20 09:15:57 Mother Essential hypertension [email or web address] Not available 09:15:57 Brother Diabetes mellitus [id number] Not available 09/29/2022 08:05:55 Sister Diabetes mellitus [id number] Not available 09/29/2022 08:05:55 Medical History Condition Response DIABETES, TYPE Y HYPERTENSION Y HIGH CHOLESTEROL / HYPERLIPIDEMIA Y Gynecological History Statement/Question Response If Post Menopausal, Age at Menopause 53 Date of Last Mammogram 05/31/2019 Date of Last Colonoscopy 08/01/2011 Most Recent Bone Density Date of LMP Date of Last Pap 11/19/2021 Date of Last Pap Smear 08/29/2024 Most Recent Mammogram 06/01/2024 Obstetrics History GPAL:G 0 P 0 0 0 0 Immunizations Vaccine Type Date Status Note Provider Nam e and Address Organization Details Recorded Time Influenza, split virus, quadrivalent, PF 3 completed Jackie Manuel RN [facility], [place] [facility] [employer] [facility] 05/18/2023 10:20:09 Influenza, split virus, trivalent, preservative 5 completed Not Available [facility] 09/29/2022 08:15:11 Influenza, split virus, trivalent, preservative 4 completed Not Available [facility] 09/29/2022 08:15:12 Influenza, split virus, trivalent, preservative 3 completed Not Available [facility] 09/29/2022 08:15:12 Tdap 8 completed Not Available [facility] 09/29/2022 08:15:12 Past Encounters Encounter ID Performer Location Encounter Start Date Encounter Closed Date Diagnosis/Indication Diagnosis SNOMED-CT Code Diagnosis ICD10 Code Diagnosis Note [id number] [facility] [address] [place] [address] 11/11/2020 00:00:00 11/11/2020 18:37:33 [id number] [facility] [address] [place] [address] 06/08/2021 00:00:00 06/08/2021 10:22:53 [id number] [facility] [address] [place] [address] 07/07/2021 00:00:00 07/07/2021 09:56:39 [id number] S[facility] [address] [address] 10/29/2021 00:00:00 10/29/2021 08:43:15 [id number] [facility] [address] [address] 11/19/2021 00:00:00 11/19/2021 08:49:59 [id number] [facility] [address] [address] 01/07/2022 00:00:00 01/07/2022 09:42:10 [id number] Jackie Bo NP [address] [address] 10/08/2022 15:06:03 10/08/2022 15:55:49 Essential hypertension 35629807 I10 Losartan 50 mg po daily Hyperlipidemia 25900368 E78.5 Atorvastat in 20 mg po daily. Anemia screening 3248030 07 Z13.0 Diabetes m ellitus screening 502143169 Z13.1 Thyroid di sorder screening 247490625 Z13.29 Acute otitis externa 302 [address] H60.509 CiproDex 4 gtts bilateral ears for 7 days. [id number] Jackie Bo NP [facility] [address] 04/27/2023 14:07:02 04/27/2023 15:26:02 Adult health examination 576658071 Z00.00 Encouraged well balanced meals, active lifestyle, and routine vision and dental appts. Essential hypertension 41889744 I10 Losartan 50 mg po daily< 2 gm sodium diet. Hyperlipidemia 70761365 E78.5 Atorvastat in 20 mg po daily.Low fat diet. Obese 838384500 E66.9 Diet and exercise to reduce BMI closer to <25. Screening for malignant neoplasm of breast 160339811 Z12.39 mammogram ordered 04/27/23 Screening for malignant neoplasm of colon 456103989 Z12.11 GI referral for Colonoscop y Last in 2011. Prediabetes 544452095 R7 3.03 A1C October 2022 6.2 with fasting glucose 88.A1C and CMP ordered. Hyperglycemia 21704188 R 73.9 A1C and CMP Pruritic rash 29041371 L 28.2 right ear- triamcinol one cream [id number] Jackie Bo NP [address] [address] 05/18/2023 08:22:29 05/18/2023 09:04:36 Screening for malignant neoplasm of colon 561220297 Z12.11 GI referral for Colonoscop y Last in 2011.Colog uard ordered 05/18/23. Gynecologi c examination 35230781 Z01.419 Encouraged well balanced meals, active lifestyle, and routine vision and dental appts. Administra tion of influenza vaccine 31009870 Z23 [id number] Shelly Gardiner [employer] [address] [address] 11/21/2023 09:13:23 11/21/2023 10:01:35 Screening for malignant neoplasm of colon 743984113 Z12.11 Hyperlipidemia 65857726 E78.5 Prediabetes 076557726 R7 3.03 Obesity 468234489 E66.9 Screening mammography 24 079641 Z12.31 [id number] AGUEDA Howe [address] [address] 12/28/2023 08:24:37 12/28/2023 09:03:51 Type 2 diabetes mellitus 01365748 E11.9 Will consider GLP1 after next A1C [id number] AGUEDA Howe [address] [address] 05/22/2024 08:25:35 05/22/2024 09:03:57 Type 2 diabetes mellitus 63649856 E11.9 A1C decreasing with diet and lifestyle changes. Currently taking Metformin 500 mg daily.Will continue this regimen Urinary symptoms 7018953 08 R39.9 Essential hypertension 64746468 I10 Hyperlipidemia 16332526 E78.5 [id number] AGUEDA Howe [facility] [address] [address] 08/29/2024 08:41:07 08/29/2024 09:25:53 Gynecologic examination 55822520 Z01.419 Normal mammo, 06/07/2024 Patient does annual PAP for peace of mindNo concerns todayDiscu ssed vaginal hygiene and safe sex practicesP AP sample collected and sent to lab Acute cystitis 54557343 N30.01 Recurrent, will recheck dip 1 week post abx Health Concerns Section Related Observation LastModified by Organization Detai ls LastModified Time None Recorded Concern Status LastModified by Organization Details LastModified Time None Recorded Advance Directives Directive Y: Payers Encounter Date Sequence Insurance Name Policy Number Policy Gaytan Covered Member ID Gaytan Member ID Guarantor Name 05/18/2023 1 [employer] - CHOICE PLUS [id number] Farzaneh Y Ng [id number] Farzaneh Y Ng 11/21/2023 1 [employer] - CHOICE PLUS [id number] Farzaneh Y Ng [id number] Farzaneh Y Ng 12/28/2023 1 [employer] - CHOICE PLUS [id number] Farzaneh Y Ng [id number] Farzaneh Y Ng 05/22/2024 1 [employer] - CHOICE PLUS [id number] Farzaneh Y Ng [id number] Farzaneh Y Ng 08/29/2024 1 [employer] (PPO) [id number] Farzaneh Y Ng [id number] Farzaneh Y Ng Notes Date Note Type Note Provider Name and Address Organization Details Recorded Time 05/18/2023 text/html 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 No concerns.Would like flu shot today.Mammogram good recently. Jackie Bo NP [address] [facility], [facility] [address], [place], [address], [place] [employer] 05/18/2023 09:00:21 11/21/2023 text/html Farzaneh Ng is a 58 year old female here to establish care. Her past medical history includes hyperlipidemia, her last panel (11/20/2022) WNLs, will repeat today. She is taking Atorvastatin 20 mg PO HS. She admits to some occasional muscle cramping, but states it is sporadic.She has prediabetes, Her last A1C was 6.2 (05/2023), will repeat. She is taking metformin ER 500 mg, declines GI issues. History of hypertension. On arrival, 138/82, she does not take BP readings at home. She is taking losartan 50 mg PO dailyShe declines headaches, ringing in hers, dizziness, light headedness. Admits to some orthostatic off balance. Flu shot: OVID vaccines: 2020, 2020TDaP: 11/2017Shingles vaccines: recommendedMammogr am: 05/13/2023WWE: oloscopy: cologuard ordered today AGUEDA Howe [address], [place], [address], [employer] 11/21/2023 09:56:51 12/28/2023 text/html Farzaneh Ng is a 58 year old female patient here today for Diabetes education Farzaneh recently () had an A1C of 6.5, confirming the diagnosis of type II diabetes mellitus. She has been taking metformin 500 mg PO daily for 8 months for pre-diabetes with inadequate blood sugar control. She admits that she has not been taking the metformin very regularly now. We will start taking this more regularly and check again in three months. We discussed adding GLP-1, she would like to wait on this. We discussed dietary changes like swapping bread for keto or lettuce wraps and decreasing sugars. Current LDL 80. AGUEDA Howe [address], [place], [address], [employer] 12/28/2023 09:02:22 05/22/2024 text/html Farzaneh Ng is a 58 year old female patient here today for Diabetes education Farzaneh recently () had an A1C of 6.1, down from 6.5, confirming the diagnosis of type II diabetes mellitus. She has been taking metformin 500 mg PO daily for 8 months for pre-diabetes with inadequate blood sugar control. She admits that she has not been taking the metformin very regularly now. She does admits to GI upset with metformin.We will start taking this more regularly and check again in three months. We discussed adding GLP-1, she would like to wait on this.She is down 30 pounds since I first saw her. She states she feels she feel like she has to urinate frequently but has difficulty initiating a stream of urine BP recheck 138/74 AGUEDA Howe [address], [employer], [place], [address], [employer] 05/22/2024 09:01:24 08/29/2024 text/html Pap/PelvicReport ed bypatient.Context: appt for screening pap/pelvic/breast exam; no gynecologic complaints Associated Factors:no risk factor for cervical cancer; no history of ALICIA II/III; no abnormal pap smears; at least three pap smears in past 7 years; low risk sexual history; no VALERIE exposure; up to date mammogramNotes:Con cerns today with pain with urination, CVA pain, incomplete emptying and increased frequency AGUEDA Howe [address] [employer] [address], [employer], [place], [address], [employer] 08/29/2024 09:29:32 OBGyn Episode No OBEpisode recorded.
--- OUTSIDE RECORDS SUMMARY | 2024-09-04 13:47 | XMS_ITS | Clinical Summary ---
Author Organization [facility] [employer] Address [address] [place] [address] Care Team Providers Care Retail Sales Manager Name Role Phone Odalis Mcnally MD Primary Care Provider [phone] Source Comments [facility] [employer],non-owned Affiliates and Associated Physician Practices is amultiple site organization consisting of ambulatory clinics and hospital sitesin [place], [place], [place] and [place]. This disclosure is being madepursuant to the Care Everywhere program and may not contain all information available regarding this patient. Last updated 18.[facility] [employer] Allergies No known active allergies Medications * Be aware that medications may not be up to date on this document. Alwaysverify current medications with the patient. Medication Sig Dispensed Refills Start Date End Date Status ATORVASTATIN CALCIUM PO Active benzonatate (TESSALON) 200 MG capsuleIndications:A cute URI Take 1 capsule by mouth 3 times daily as needed for Cough 30 capsule 12/01/2018 Active Social History Tobacco Use Types Packs/Day Years [...] Mass Index 39.86 12/01/2018 5:48 PM CDT Plan of Treatment Health Maintenance Due Date Last Done Comments COLOGUARD (AGES 45-75) - COL ON CA SCREENING 1966 COLON MONITORING 1966 COLONOSCOPY - COLON CA SCREENING 1966 CT COLONOGRAPHY - COLON CA SCREENING 1966 Colorectal Cancer Screening 1966 FIT - COLON CA SCREENING 1966 FLEX SIG - COLON CA SCREENING 1966 MAMMOGRAM 1966 PAP SMEAR 1966 HIV SCREENING 1981 HEPATITIS C SCREENING 03/23/1984 DTAP/TDAP/TD VACCINES (1 - Tdap) 1985 HEPATITIS B VACCINE (1 of 3 - 19+ 3-dose series) 1985 PNEUMOCOCCAL VACCINE 50+ (1 of 1 - PCV) 2016 ZOSTER VACCINE (1 of 2) 2016 SCREENING FOR DIABETES 01/20/2018 COVID-19 VACCINE ( - 2023-2 5 season) 2024 INFLUENZA VACCINE (#1) 2024 DEPRESSION SCREENING 08/01/2024 HIB VACCINE Aged Out No longer eligi ble based on patient's age to complete this topic HPV VACCINE Aged Out No longer eligi ble based on patient's age to complete this topic MENINGOCOCCAL (Group B) VACCINE Aged Out No longer eligible based on patient's age to complete this topic MENINGOCOCCAL VACCINE Aged Out No eleazar juliana eligible based on patient's age to complete this topic PNEUMOCOCCAL VACCINE Aged Out No long er eligible based on patient's age to complete this topic Care Teams Retail Sales Manager Relationship Specialty Start Date End Date Odalis Mcnally MD [address] [place] [phone] PCP - General Family Medicine 01/20/18
--- OUTSIDE RECORDS SUMMARY | 2024-09-04 13:47 | XMS_ITS | Referral Summary ---
Author Organization [facility] [employer] Address [address] [place] [address] Care Team Providers Care Collar Tailor Name Role Phone Odalis Mcnally MD Primary Care Provider Source Comments [facility] [employer],non-owned Affiliates and Associated Physician Practices is amultiple site organization consisting of ambulatory clinics and hospital sitesin [place]. This disclosure is being madepursuant to the Care Everywhere program and may not contain all information available regarding this patient. Last updated 18.[facility] [employer] Allergies No known active allergies Medications * [...] 12/01/2018 5:48 PM CDT Plan of Treatment Not on file Care Teams Collar Tailor Relationship Specialty Start Date End Date Odalis Mcnally MD [address] [place] [phone] PCP - General Family Medicine 01/20/18
[2024-09-04 14:07] VITALS: BP 168/71; PULSE 82; RESP 16; TEMP 36.7; O2SAT 100
[2024-09-04 14:44] LABS: Bacteria Urine None Seen /hpf; Need Manual Microscopic Reviewed; Non Pathogenic Casts 0-2; RBC Urine >100 /hpf (0-2); Squamous Epithelial Cell Urine Many /hpf (Few); WBC Urine 51-100 /hpf (0-3)
[2024-09-04 14:45] LABS: Add Urine Microscopic? YES; Appearance Urine Turbid (Clear); Bilirubin Urine Negative (Negative); Blood Urine 3+ (Negative); Color Urine Orange (Yellow); Glucose Urine UA Negative (Negative); Ketones Urine Negative (Negative); Leukocyte Esterase Ur 1+ LEU/UL (Negative); Nitrate Urine Negative (Negative); Protein Urine 3+ mg/dL (Negative); Specific Grav Ur 1.011 (1.001-1.035); Urobilinogen Urine 0.2 mg/dL (<2.0)
[2024-09-04 14:54] LABS: Transitional Epi Cells Urine Few /hpf (None Seen)
[2024-09-04 18:38] LABS: Basophils Absolute Auto 0.1 K/mm3 (0.0-0.1); Basophils Percent Auto 0.3 % (0.2-1.2); Eosinophils Percent Auto 0.1 % (0-4.4); Hematocrit 41.8 % (37.0-47.0); Hemoglobin 13.6 g/dL (12.0-15.0); Immature Granulocyte Absolute 0.09 K/mm3 (0.00-0.031); Immature Granulocyte Percent A 0.5 % (0-0.5); Immature Platelet Fraction Pct 10.9 % (0.9-11.2); Lymphocytes Absolute Auto 1.47 K/mm3 (0.9-3.2); Lymphocytes Percent Auto 8.6 % (18.3-44.2); Mean Corpuscular HGB Conc 32.5 g/dl (32-36); Mean Corpuscular Hemoglobin 31.1 pg (26-34); Mean Corpuscular Volume 95.7 fl (80-100); Mean Platelet Volume 13.3 fl (7.4-10.4); Monocytes Absolute Auto 1.3 K/mm3 (0.1-0.6); Monocytes Percent Auto 7.5 % (2.6-8.5); Neutrophils Absolute Auto 14.1 K/mm3 (1.3-6.7); Platelet Count Result 215 k/mm3 (150-375); Red Blood Count 4.37 M/mm3 (4.2-5.4); Red Cell Distribution Width 13.7 % (11.5-14.5)
[2024-09-04 18:48] LABS: Alanine Aminotransferase 15 U/L (6-35); Albumin Level 4.1 g/dL (3.5-5.1); Alkaline Phosphatase 123 U/L (38-126); Anion Gap 14 mmol/L (4-12); Aspartate Amino Transferase 19 U/L (14-36); Bilirubin,Total 0.7 mg/dL (0.2-1.3); Blood Urea Nitrogen 41 mg/dL (7-17); Calcium 9.1 mg/dL (8.4-10.2); Carbon Dioxide 20 mmol/L (22-30); Chloride 104 mmol/L (98-107); Estimated CRCL calculation 17 ml/min; Estimated Glomerular Filt Rate 11; Glucose 125 mg/dL (65-110); Potassium 4.9 mmol/L (3.4-5.0); Sodium 138 mmol/L (137-145)
--- OUTSIDE RECORDS SUMMARY | 2024-09-04 19:12 | XMS_ITS | Clinical Summary ---
Author Organization [facility] [employer] Address [address] [facility] [place] [address] Care Team Providers Care Translation Director Name Role Phone Odalis Mcnally MD Primary Care Provider [phone] Source Comments [facility] [employer],non-owned Affiliates and Associated Physician Practices is amultiple site organization consisting of ambulatory clinics and hospital sitesin [place], [place], [place] and [place]. This disclosure is being madepursuant to the Care Everywhere program and may not contain all information available regarding this patient. Last updated 18.[facility] [employer] Allergies No known active allergies Medications * [...] age to complete this topic Care Teams Translation Director Relationship Specialty Start Date End Date Odalis Mcnally MD [address] [place] [phone] PCP - General Family Medicine 01/20/18
--- OUTSIDE RECORDS SUMMARY | 2024-09-04 19:12 | XMS_ITS | Referral Summary ---
Author Organization [facility] [employer] Address [address] [place] [address] Care Team Providers Care Set Up Mechanic Crown Assembly Machine Name Role Phone Odalis Mcnally MD Primary Care Provider Source Comments [facility] [employer],non-owned Affiliates and Associated Physician Practices is amultiple site organization consisting of ambulatory clinics and hospital sitesin [place], [place], [place] and [place]. This disclosure is being madepursuant to the Care Everywhere program and may not contain all information available regarding this patient. Last updated 18.[facility] [employer] Allergies No known active allergies Medications * [...] of Treatment Not on file Care Teams Set Up Mechanic Crown Assembly Machine Relationship Specialty Start Date End Date Odalis Mcnally MD [address] [place] [phone] PCP - General Family Medicine 01/20/18
--- OUTSIDE RECORDS SUMMARY | 2024-09-04 19:12 | XMS_ITS | Patient Health Summary ---
Author Organization [facility] Address [address] [place] [address] Care Team Providers Care Resident Care Spec Name Role Phone Odalis Mcnally MD Primary Care Provider Note from [facility],non-owned Affiliates and Associated Physician Practices is amultiple site organization consisting of ambulatory clinics and hospital sitesin [place], [place], [place] and [place]. This disclosure is being madepursuant to the Care Everywhere program and may not contain all information available regarding this patient. Last updated 18.[facility] Allergies No known active allergies Medications * [...] BLOOD SPECIMEN / Unknown 12/01/2018 Megan Shaikh APRN-VICE PRESIDENT OF [facility] - POINT OF CARE ORDERABLES Care Teams Resident Care Spec Relationship Specialty Start Date End Date Odalis Mcnally MD [address] [place] [phone] PCP - General Family Medicine 01/20/18
--- NOTE | 2024-09-04 19:21 | ED.FEMALEGU ---
HPI - Female Genitourinary General Chief complaint: Urogenital-Female Stated complaint: UTI last week-still having problems Time Seen by Provider: 09/04/24 19:00 Source: patient Mode of arrival: ambulatory Limitations: no limitations History of Present Illness HPI Narrative: Patient presents with concern for urinary tract infection that she was diagnosed with last week but the distal problematic appears to be worsening. She endorses that the suprapubic pain she is experiencing this has become back pain. She was having some left flank pain and now right flank pain with though both of these are improving. She only had 1 tablet left of her nitrofurantoin that she had initially been prescribed. She continues to have dysuria. No nausea or vomiting. No fevers but chills. The antibiotic gave her diarrhea. She states she is urinating frequently however only little comes out. She states she was initially routine urine but that this has improved. No history of needing to see Urology. No history of urinary tract infections, pyelonephritis, or kidney stones. Vee Lockhart (STAFF COMMAND AND CONTROL OFFICER through her PCP at [facility]) recommended she present to ED for urine culture. Related Data Home Medications ?Medication ?Instructions ?Recorded ?Confirmed ?Last Taken ?Type atorvastatin 20 mg tablet 20 mg PO QPM 10/22/21 09/04/24 Unknown History losartan 50 mg tablet 50 mg PO DAILY 09/04/24 09/04/24 09/04/24 History metformin 500 mg tablet,extended 500 mg PO QPM 09/04/24 09/04/24 Unknown History release 24 hr Allergies Allergy/AdvReac Type Severity Reaction Status Date / Time No Known Allergies Allergy Verified 10/22/21 11:42 [facility] Past Medical History Medical History (Updated 09/05/24 @ 10:55 by Bre Mujica APRN) Hyperlipidemia Hypertension Diabetes mellitus Family History Family History Mother Hypertension Father Cerebrovascular accident Social History Social History Smoking status: Never smoker Alcohol intake: current Substance use: never Substance use type: does not use Do You Feel Safe in your Home?: No Lack of Transportation: No Lack of Food: Never True Current Housing: I Have Housing Concerned About Future Housing: No Difficulty Paying Gas/Electric Bills: No Difficulty Paying for Meds: No Currently Unemployed: No Education: Trade/Vocational Certificate Difficulty w/ Childcare or Family Care: No Spiritual care concerns: No Exam Narrative: GENERAL: Well-appearing, well-nourished, and in no acute distress. HEAD: Normocephalic, atraumatic. EYES: Non injected, non icteric ENT: Nares clear, no rhinorrhea or epistaxis. NECK: Supple. CHEST: Speaking in full sentences. No respiratory distress. HEART: Regular rate and rhythm. . ABDOMEN: Soft. Mild suprapubic tenderness to palpation. No rigidity or guarding. Not peritoneal : No CVA tenderness bilaterally. EXTREMITIES: Normal range of motion. No lower extremity edema. SKIN: Warm, dry, no rash. NEURO: No focal deficits. Alert and oriented x3. PSYCH: Normal mood and affect. Course Vital Signs Vital signs: Vital Signs Temperature 98.1 F 09/04/24 14:07 Pulse Rate 82 09/04/24 14:07 Respiratory Rate 16 09/04/24 14:07 Blood Pressure 168/71 H 09/04/24 14:07 Pulse Oximetry 100 09/04/24 14:07 Temperature 97.6 F 09/05/24 14:00 Pulse Rate 89 09/05/24 14:00 Respiratory Rate 18 09/05/24 14:00 Blood Pressure 143/52 H 09/05/24 14:00 Pulse Oximetry 100 09/05/24 14:00 Oxygen Delivery Room Air 09/05/24 09:59 MDM - Female Genitourinary MDM Narrative Medical decision making narrative: Patient presents with report that urinary tract infection she was diagnosed with last week is still problematic and not getting better and in fact is the suprapubic pain appears to be getting worse. She also endorses low back pain. She was having some flank pain on the left and then the right but this improved. In the emergency department she is afebrile with vital signs notable for hypertension. No bacteria seen on urinalysis and with marked squamous cells but also with marked hematuria and white blood cells. CT with marked hydroureteronephrosis as well as significant bladder distention. No obvious obstruction. Her creatinine is 4.12. No baseline for comparison however presumably normal at baseline thus significant acute kidney injury/acute renal failure. Will obtain additional labs including blood culture, lactic acid and administer 1 L IV fluids. Will also start antibiotics. No previous urine culture for comparison but I did order a urine culture now since 1 did not automatically reflex. Patient will obviously require admission the degree of BRANDI/ARF. Discussed patient with on-call urologist Dr. Aguila approximately 08/20/2004 who does recommend admitting to the hospitalist, placing a Harrison catheter, and urology will see in the morning. A 2nd IV fluid bolus was ordered in addition to maintenance IV fluids of lactated Ringer's at 125mL per hour. RN inserted Harrison catheter which drained approximately 500cc immediately. However, I am informed at 22:35 that she ripped the entire catheter out herself with the balloon still inflated. Will not reinsert at this time given patient did this and is able to pee, although it had been explained to her the importance of fully draining her bladder given the deleterious effects already seen. Differential Diagnosis Differential diagnosis: Likely urinary tract infection, cystitis and other (Pyelonephritis) Lab Data Attestation: I reviewed the patient's lab results. 09/05/24 07:21 09/05/24 07:21 Labs: Lab Results 09/04/24 09/04/24 09/04/24 Range/Units 14:15 18:30 20:03 WBC 17.0 H (4.5-10.0) K/mm3 RBC 4.37 (4.2-5.4) M/mm3 Hgb 13.6 (12.0-15.0) g/dL Hct 41.8 (37.0-47.0) % MCV 95.7 (80-100) fl MCH 31.1 (26-34) pg MCHC 32.5 (32-36) g/dl RDW 13.7 (11.5-14.5) % Plt Count 215 (150-375) k/mm3 MPV 13.3 H (7.4-10.4) fl Immature Gran % (Auto) 0.5 (0-0.5) % Neut % (Auto) 83.0 H (45.5-73.1) % Lymph % (Auto) 8.6 L (18.3-44.2) % [place] % (Auto) 7.5 (2.6-8.5) % Eos % (Auto) 0.1 (0-4.4) % Baso % (Auto) 0.3 (0.2-1.2) % Lymph # (Auto) 1.47 (0.9-3.2) K/mm3 [place] # (Auto) 1.3 H (0.1-0.6) K/mm3 Eos # (Auto) 0.0 (0-0.3) K/mm3 Baso # (Auto) 0.1 (0.0-0.1) K/mm3 Abs Immat Gran (auto) 0.09 H (0.00-0.031) K/mm3 Absolute Neuts (auto) 14.1 H (1.3-6.7) K/mm3 Absolute Nucleated RBC 0.000 (0.0-0.012) K/mm3 Nucleated RBC % 0.0 (0.0-0.2) % % Immature Plt Fraction 10.9 (0.9-11.2) % Sodium 138 (137-145) mmol/L Potassium 4.9 (3.4-5.0) mmol/L Chloride 104 (98-107) mmol/L Carbon Dioxide 20 L (22-30) mmol/L Anion Gap 14 H (4-12) mmol/L BUN 41 H (7-17) mg/dL Creatinine 4.12 H (0.7-1.0) mg/dL Estim Creat Clear Calc 17 ml/min Estimated GFR 11 L (59 - ) Glucose 125 H (65-110) mg/dL Hemoglobin A1c (<5.7) % Lactic Acid 1.2 (0.7-2.0) mmol/L Calcium 9.1 (8.4-10.2) mg/dL Total Bilirubin 0.7 (0.2-1.3) mg/dL AST 19 (14-36) U/L ALT 15 (6-35) U/L Alkaline Phosphatase 123 (38-126) U/L Total Protein 8.0 (6.3-8.2) g/dL Albumin 4.1 (3.5-5.1) g/dL Urine Color [place] H (Yellow) Urine Appearance Turbid H (Clear) Urine pH 6.0 (5.0-9.0) Ur Specific [place] 1.011 (1.001-1.035) Urine Protein 3+ H (Negative) mg/dL Urine Glucose (UA) Negative (Negative) mg/dL Urine Ketones Negative (Negative) mg/dL Ur Blood (Man) 3+ H (Negative) Urine Nitrate Negative (Negative) Urine Bilirubin Negative (Negative) Urine Urobilinogen 0.2 (<2.0) mg/dL Add Ur Microanalysis Reviewed Leukocyte Esterase Rfl 1+ H (Negative) VIRGEN/UL Urine RBC >100 H (0-2) /hpf Urine WBC 51-100 H (0-3) /hpf Ur Squamous Epith Cells Many H (Few) /hpf Ur Transition Epith Cell Few H (None Seen) /hpf Urine Bacteria None seen /hpf Urine Casts 0-2 09/05/24 09/05/24 Range/Units 07:16 07:21 WBC 13.0 H (4.5-10.0) K/mm3 RBC 3.73 L (4.2-5.4) M/mm3 Hgb 11.8 L (12.0-15.0) g/dL Hct 36.8 L (37.0-47.0) % MCV 98.7 (80-100) fl MCH 31.6 (26-34) pg MCHC 32.1 (32-36) g/dl RDW 13.9 (11.5-14.5) % Plt Count 177 (150-375) k/mm3 MPV 13.4 H (7.4-10.4) fl Immature Gran % (Auto) 0.5 (0-0.5) % Neut % (Auto) 75.2 H (45.5-73.1) % Lymph % (Auto) 13.4 L (18.3-44.2) % [place] % (Auto) 10.5 H (2.6-8.5) % Eos % (Auto) 0.2 (0-4.4) % Baso % (Auto) 0.2 (0.2-1.2) % Lymph # (Auto) 1.74 (0.9-3.2) K/mm3 [place] # (Auto) 1.4 H (0.1-0.6) K/mm3 Eos # (Auto) 0.0 (0-0.3) K/mm3 Baso # (Auto) 0.0 (0.0-0.1) K/mm3 Abs Immat Gran (auto) 0.07 H (0.00-0.031) K/mm3 Absolute Neuts (auto) 9.8 H (1.3-6.7) K/mm3 Absolute Nucleated RBC 0.000 (0.0-0.012) K/mm3 Nucleated RBC % 0.0 (0.0-0.2) % % Immature Plt Fraction 10.5 (0.9-11.2) % Sodium 139 (137-145) mmol/L Potassium 5.0 (3.4-5.0) mmol/L Chloride 109 H (98-107) mmol/L Carbon Dioxide 19 L (22-30) mmol/L Anion Gap 11 (4-12) mmol/L BUN 39 H (7-17) mg/dL Creatinine 2.87 H (0.7-1.0) mg/dL Estim Creat Clear Calc 22 ml/min Estimated GFR 17 L (59 - ) Glucose 104 (65-110) mg/dL Hemoglobin A1c 6.1 H (<5.7) % Lactic Acid (0.7-2.0) mmol/L Calcium 8.3 L (8.4-10.2) mg/dL Total Bilirubin 0.7 (0.2-1.3) mg/dL AST 17 (14-36) U/L ALT 13 (6-35) U/L Alkaline Phosphatase 105 (38-126) U/L Total Protein 7.0 (6.3-8.2) g/dL Albumin 3.4 L (3.5-5.1) g/dL Urine Color (Yellow) Urine Appearance (Clear) Urine pH (5.0-9.0) Ur Specific [place] (1.001-1.035) Urine Protein (Negative) mg/dL Urine Glucose (UA) (Negative) mg/dL Urine Ketones (Negative) mg/dL Ur Blood (Man) (Negative) Urine Nitrate (Negative) Urine Bilirubin (Negative) Urine Urobilinogen (<2.0) mg/dL Add Ur Microanalysis Leukocyte Esterase Rfl (Negative) VIRGEN/UL Urine RBC (0-2) /hpf Urine WBC (0-3) /hpf Ur Squamous Epith Cells (Few) /hpf Ur Transition Epith Cell (None Seen) /hpf Urine Bacteria /hpf Urine Casts Imaging Data Radiologist's impression: Impressions Abdomen/Pelvis CT 09/04/24 19:10 IMPRESSION: Significant right-sided hydroureteronephrosis without a discrete source of obstruction identified Marked bladder distention with surrounding inflammatory change for which compression and post decompression renal ultrasound is suggested. ADDENDUM: 09/04/242015 Please note, that the impression should read significant right-sided hydroureteronephrosis without a discrete source of obstruction identified. Marked bladder distention with surrounding inflammatory change for which DECOMPRESSION followed by POST DECOMPRESSION RENAL ULTRASOUND is suggested. These findings were discussed with YEIMY Palacios at 1905 on 09/04/2024 Renal Ultrasound 09/04/24 20:07 IMPRESSION: Severe right-sided and mild left-sided hydroureteronephrosis with persistent bladder distention and nonvisualization of the ureteral jets. Recommend bladder decompression followed by repeat ultrasound to confirm resolution of the aforementioned hydroureteronephrosis. Discharge Plan Discharge Clinical Impression: Hydroureteronephrosis, Cystitis, Leukocytosis Acute renal failure Qualifiers: Acute renal failure type: unspecified Qualified Code(s): N17.9 - Acute kidney failure, unspecified Patient Disposition: Still a Patient Condition: Stable
[2024-09-04 19:40] VITALS: BP 168/87; PULSE 92; RESP 16; TEMP 37.7; O2SAT 100
[2024-09-04] MEDS: SODIUM CHLORIDE 0.9% IV 1,000 ML 999 ML IV CONT ×2 (20:08→21:19)
[2024-09-04 20:20] LABS: Lactic Acid Reflex 1.2 mmol/L (0.7-2.0)
[2024-09-04 22:11] VITALS: BP 162/86; PULSE 71; RESP 17; TEMP 36.7; O2SAT 97
--- NOTE | 2024-09-04 22:39 | PC.NURSE ---
Upon placing urinary catheter in patient two to three minutes later patient called out saying she was in pain. When nursing staff came into room patient had removed trinidad catheter. Notified EDP Dr. Garcia and notified second floor nurse.
[2024-09-04 22:54] VITALS: BMI 42.0
--- NOTE | 2024-09-04 22:55 | ADMGEN ---
This patient, Farzaneh Ng, was admitted to 2 Medical Room 254-01. Patient/family oriented to hospital policies and general routines including ID bracelet, bed and alarms, visiting hours, pain management, procedures, bathroom and other care routines, personal items, smoking policy, room service/diet, and visiting hours. Information on how to activate the Rapid Response Team has been discussed. Patient/Family are encouraged to report perceived risks to care and to ask questions if they do not understand what they are told or what they should do.
[2024-09-04 22:58] VITALS: BP 153/62; PULSE 80; RESP 18; TEMP 36.3; O2SAT 100
[2024-09-04] MEDS: LACTATED RINGERS 1,000 ML 125 ML IV CONT (23:29)
[2024-09-04 23:44] VITALS: PULSE 80; RESP 18; O2SAT 100
[2024-09-05 04:06] VITALS: BP 149/68; PULSE 91; RESP 17; TEMP 36.7; O2SAT 100
[2024-09-05 07:32] LABS: Basophils Percent Auto 0.2 % (0.2-1.2); Eosinophils Percent Auto 0.2 % (0-4.4); Hematocrit 36.8 % (37.0-47.0); Hemoglobin 11.8 g/dL (12.0-15.0); Immature Granulocyte Absolute 0.07 K/mm3 (0.00-0.031); Immature Granulocyte Percent A 0.5 % (0-0.5); Immature Platelet Fraction Pct 10.5 % (0.9-11.2); Lymphocytes Absolute Auto 1.74 K/mm3 (0.9-3.2); Lymphocytes Percent Auto 13.4 % (18.3-44.2); Mean Corpuscular HGB Conc 32.1 g/dl (32-36); Mean Corpuscular Hemoglobin 31.6 pg (26-34); Mean Corpuscular Volume 98.7 fl (80-100); Mean Platelet Volume 13.4 fl (7.4-10.4); Monocytes Absolute Auto 1.4 K/mm3 (0.1-0.6); Monocytes Percent Auto 10.5 % (2.6-8.5); Neutrophils Absolute Auto 9.8 K/mm3 (1.3-6.7); Neutrophils Percent Auto 75.2 % (45.5-73.1); Platelet Count Result 177 k/mm3 (150-375); Red Blood Count 3.73 M/mm3 (4.2-5.4); Red Cell Distribution Width 13.9 % (11.5-14.5)
[2024-09-05 07:45] LABS: Alanine Aminotransferase 13 U/L (6-35); Albumin Level 3.4 g/dL (3.5-5.1); Alkaline Phosphatase 105 U/L (38-126); Anion Gap 11 mmol/L (4-12); Aspartate Amino Transferase 17 U/L (14-36); Bilirubin,Total 0.7 mg/dL (0.2-1.3); Blood Urea Nitrogen 39 mg/dL (7-17); Calcium 8.3 mg/dL (8.4-10.2); Carbon Dioxide 19 mmol/L (22-30); Chloride 109 mmol/L (98-107); Estimated CRCL calculation 22 ml/min; Estimated Glomerular Filt Rate 17; Glucose 104 mg/dL (65-110); Sodium 139 mmol/L (137-145)
[2024-09-05] MEDS: LOSARTAN POTASSIUM 50 MG TABLET PO (09:51)
[2024-09-05] MEDS: LACTATED RINGERS 1,000 ML 125 ML IV CONT ×2 (09:52→19:24)
--- NOTE | 2024-09-05 09:53 | P.HP_ITS ---
H&P: HPI History of Present Illness Date/Time: 09/05/24 09:00 Chief Complaint: Urinary burning, Back and Suprapubic pain Narrative: This very pleasant 59 year old female pt with PMH of DM, HTN and HLD who was recently treated as an outpatient for UTI presented to the ER last evening with complaints of continued urinary burning, back pain and overall not feeling well. Workup was initiated in the ER and it was found that pt had UTI, BRANDI with creatinine of 4.12 and Leukocytosis of 17K with left shift. No known hx of what pt's baseline Creatinine is, but it is presumed to be normal range. CT abd and pelvis was found and it showed right sided hydroureteronephrosis without a discrete source of obstruction identified and marked bladder distention with surrounding inflammatory change for which Decompression and post decompression renal US was suggested. A [place] catheter was placed and the pt had renal US that demonstrated severe right sided and mild left sided hydroureternephrosis with persistent bladder distention and nonvisualization of the ureteral jets. Pt removed her own [place] catheter with balloon intact after the test, but has been able to urinate well. She states she has improvement overall and feels that she is emptying more. She was started on abx of Rocephin, started on IVF for BRANDI and Urology was consulted and she was admitted to the hospital in the current setting without any other acute complaints or symptoms. Review of Systems Review of Systems: All systems reviewed & are unremarkable except as noted in HPI and below PMFSH Past Medical History Medical History (Updated 09/05/24 @ 10:08 by AMANDA Ring) Hyperlipidemia Hypertension Diabetes mellitus Family History Family History Mother Hypertension Father Cerebrovascular accident Social History Social History Smoking status: Never smoker Alcohol intake: current Substance use: never Substance use type: does not use Do You Feel Safe in your Home?: No Lack of Transportation: No Lack of Food: Never True Current Housing: I Have Housing Concerned About Future Housing: No Difficulty Paying Gas/Electric Bills: No Difficulty Paying for Meds: No Currently Unemployed: No Education: Trade/Vocational Certificate Difficulty w/ Childcare or Family Care: No Spiritual care concerns: No Meds Home Medications and Allergies Home Medications ?Medication ?Instructions ?Recorded ?Confirmed ?Type atorvastatin 20 mg tablet 20 mg PO QPM 10/22/21 09/04/24 History losartan 50 mg tablet 50 mg PO DAILY 09/04/24 09/04/24 History metformin 500 mg tablet,extended 500 mg PO QPM 09/04/24 09/04/24 History release 24 hr Allergies Allergy/AdvReac Type Severity Reaction Status Date / Time No Known Allergies Allergy Verified 10/22/21 11:42 Vital Signs Vital Signs - 24 hr 09/04/24 14:07 09/04/24 19:40 09/04/24 22:11 Temperature 98.1 F 99.8 F H 98.1 F Pulse Rate 82 92 71 Respiratory Rate 16 16 17 Blood Pressure 168/71 H 168/87 H 162/86 H Pulse Oximetry 100 100 97 Oxygen Delivery 09/04/24 22:58 09/04/24 23:44 09/05/24 04:06 Temperature 97.4 F L 98.0 F Pulse Rate 80 80 91 Respiratory Rate 18 18 17 Blood Pressure 153/62 H 149/68 H Pulse Oximetry 100 100 100 Oxygen Delivery Room Air Exam Narrative: Pleasant, female pt sitting up in bed in no acute distress. Const: General: comfortable and no acute distress HENMT: Mouth: Yes moist mucous membranes Eyes: General: appearance normal, both eyes and all related structures Neck: Neck: supple and no JVD Resp: Effort & Inspection: normal respiratory effort Auscultation: clear to auscultation bilaterally Cardio: Rate: regular rate Rhythm: regular rhythm Heart sounds: no gallops, no murmurs and no rubs GI: Inspection: non-distended GI Palp: Yes Soft to palpation and Yes Tenderness to palpation present (GI) Other: Low, suprapubic tenderness to palpation. Skin: General skin exam: normal color and no rashes or lesions noted Lesi ons: no lesions noted Rashes: no rashes noted Wounds: no wounds Neuro: General: gait normal Speech: normal speech Motor exam (neuro): 5/5 motor strength present throughout Sensory Exam: normal sensation Extrem: General: normal to inspection and no edema Psych: Mental Status: mental status grossly normal Affect: normal affect H&P: Results Labs Labs: Short CBC 09/04/24 09/05/24 Range/Units 18:30 07:21 WBC 17.0 H 13.0 H (4.5-10.0) K/mm3 Hgb 13.6 11.8 L (12.0-15.0) g/dL Hct 41.8 36.8 L (37.0-47.0) % Plt Count 215 177 (150-375) k/mm3 BMP 09/04/24 09/05/24 18:30 07:21 Sodium 138 139 Potassium 4.9 5.0 Chloride 104 109 H Carbon Dioxide 20 L 19 L BUN 41 H 39 H Creatinine 4.12 H 2.87 H Glucose 125 H 104 Calcium 9.1 8.3 L Liver Function 09/04/24 09/05/24 Range/Units 18:30 07:21 Total Bilirubin 0.7 0.7 (0.2-1.3) mg/dL AST 19 17 (14-36) U/L ALT 15 13 (6-35) U/L Alkaline Phosphatase 123 105 (38-126) U/L Albumin 4.1 3.4 L (3.5-5.1) g/dL Urine 09/04/24 Range/Units 14:15 Urine Color [place] H (Yellow) Urine Appearance Turbid H (Clear) Urine pH 6.0 (5.0-9.0) Ur Specific [place] 1.011 (1.001-1.035) Urine Protein 3+ H (Negative) mg/dL Urine Glucose (UA) Negative (Negative) mg/dL Assessment and Plan Assessment and plan (1) Acute renal failure: Code(s): N17.9 - Acute kidney failure, unspecified Status: Acute Assessment and Plan: 09/05/24: * Pt presented with Cr/BUN of 4.12/41. * Unknown baseline, but presumed normal range. * Found to have hydroureteronephrosis bilaterally without definite obstruction. * Symptomatic with UTI, failed outpt meds. * Nephrology consulted - appreciate their recommendations. * Trend labs with renal function * Post void residuals (2) Leukocytosis: Code(s): D72.829 - Elevated white blood cell count, unspecified Status: Acute Assessment and Plan: 09/05/24: * Continue to trend. 17.0-->13.0. * Continue abx to treat infection. * Urine culture and blood cultures pending. (3) Hydroureteronephrosis: Code(s): N13.30 - Unspecified hydronephrosis Status: Acute Assessment and Plan: 09/05/24: * Pt presented with Cr/BUN of 4.12/41. * Unknown baseline, but presumed normal range. * Found to have hydroureteronephrosis bilaterally without definite obstruction. * Symptomatic with UTI, failed outpt meds. * Nephrology consulted - appreciate their recommendations. * Trend labs with renal function * Post void residuals (4) Cystitis: Code(s): N30.90 - Cystitis, unspecified without hematuria Status: Acute Assessment and Plan: 09/05/24: * Continue to trend. 17.0-->13.0. * Continue abx to treat infection. * Urine culture and blood cultures pending. (5) Diabetes mellitus: Code(s): E11.9 - Type 2 diabetes mellitus without complications Status: Acute Assessment and Plan: 09/05/24: * Hold metformin in setting of BRANDI. * Glucose checks AC and HS. * Check A1C. * Initiate adult insulin protocol if needed after checking glucose AC and HS. * Diabetic diet (6) Hypertension: Code(s): I10 - Essential (primary) hypertension Status: Acute Assessment and Plan: 09/05/24: * Losartan 50 mg po daily. * Monitor and trend BPs (7) Hyperlipidemia: Code(s): E78.5 - Hyperlipidemia, unspecified Status: Acute Assessment and Plan: 09/05/24: * Continue Lipitor 20 mg QHS. Quality VTE Prophylaxis VTE prophylaxis: mechanical ordered Hospitalist MIPS Advance Care Plan I have confirmed that the patient's Advanced Care Plan is present, code status is documented, or surrogate decision maker is listed in patient medical record.: Yes Medication Reconciliation I have utilized all available resources to obtain, update and review the patients current medications (includes all prescriptions, OTC, herbals, cannabis, and nutritional supplements).: Yes
--- NOTE | 2024-09-05 10:10 | WPDURCON ---
Assessment and Plan Assessment and plan (1) Hydroureteronephrosis: Code(s): N13.30 - Unspecified hydronephrosis Status: Acute Assessment and Plan: - severe, right (2) Acute renal failure: Qualifiers: Acute renal failure type: unspecified Qualified Code(s): N17.9 - Acute kidney failure, unspecified Code(s): N17.9 - Acute kidney failure, unspecified Status: Acute Assessment and Plan: - Renal function improved following partial bladder decompression + IV hydration - Cr 2.87 from 4.12 (3) Acute urinary retention: Code(s): R33.8 - Other retention of urine Status: Acute Assessment and Plan: - Indwelling Kothari placed in the ER with 500mL urine return - Forcibly removed by patient overnight - No PVR bladder scans following Kothari removal - Kothari replaced at bedside by Dr. Velarde, 18Fr with >1.2L UOP (4) Acute cystitis with hematuria: Code(s): N30.01 - Acute cystitis with hematuria Status: Acute Assessment and Plan: - Treated for UTI last week by PCP, Macrobid BID x7 days with no improvement in symptoms - UA suspicious for UTI, urine culture pending Plan [id number] admitted 09/04/24 with acute renal failure, acute urinary retention, severe right hydroureteronephrosis. UA suspicious for UTI. Leukocytosis downtrending, WBC 13 from 17 on IV ceftriaxone. Renal function improved this morning s/p partial bladder decompression with indwelling Kothari prior to patient pulling catheter out with balloon intact overnight. Afebrile. CT reviewed: unilateral severe hydroureteronephrosis without clear source of obstruction. Differential diagnosis includes ureteral stricture, malignancy, recently passed nephrolithiasis, severe cystitis, pyelonephritis. - Maintain indwelling Kothari catheter to maximize bladder drainage as she recovers from acute renal failure. - Solifenacin 5mg Q24 for bladder spasms - Trend Cr, follow I&Os - Renal ultrasound ordered for morning of 09/06 to reassess right hydro. - She may require diagnostic cystoscopy, right retrograde pyelogram, right ureteral stent placement if no improvement after 24-48hrs of bladder decompression. - Agree with empiric IV antibiotics for suspected UTI. Cultures pending. - Case discussed with Dr. Velarde: No plan for urologic surgical intervention today. We will continue to follow along. - Plan to establish with outpatient urology for advanced bladder workup to include urodynamics Urology Consult Note HPI Date Seen: 09/05/24 Requesting Physician: AMANDA Ring Primary Care Provider: Shelly Gardiner, [employer] Consult Narrative Reason for consult: Acute urinary retention, severe right hydronephrosis, UTI Narrative: Farzaneh Ng is a pleasant 59 year old female admitted 09/04/24 with acute renal failure, leukocytosis. She was treated for a UTI with Macrobid x7days last week with persistent symptoms -- dribbling urine x10 days, dysuria. Developed severe suprapubic pressure and left-sided low back pain leading up to ER visit. Denies fever, diarrhea, constipation, hematuria. Urology was consulted for evaluation of acute urinary retention, severe right hydroureteronephrosis, bladder distention identified on CT. Indwelling Kothari was placed in the ED with 500mL return. Cr 4.12 on admission, improved to 2.87 this morning. Afebrile, hypertensive. On chart review, patient pulled out her Kothari with balloon intact before midnight and has been able very minimally since then. Per patient, she developed severe urethral pressure following Kothari placement -- I felt like I was going to black out from the pain and I couldn't wait for help. Limited medical history available for review in [facility] or [facility]. Appears she has received care at [facility] in the past. Medical history significant for HTN/HLD, diabetes, morbid obesity (BMI>40), urinary urge incontinence. Nonsmoker. Not on ASA or blood thinners at home. No personal history of malignancy. Brother has prostate cancer. No history renal stones. Patient required complex Kothari placement at bedside this afternoon by Dr. Velarde after multiple attempts by RN and myself. She had an immediate return of 1.2L clear henna urinary output. PERTINENT IMAGIN09/04/24 CT AP WO CON - Severe right hydroureteronephrosis without clear source of obstruction, left mild hydroureteronephrosis, bladder distention PERTINENT LABS: 09/05/24 - WBC 13, HGB 11.8, Cr 2.87 09/04/24 - WBC 17, HGB 13.6, Cr 4.12 UA - 1+ LE, 3+ blood, >100 RBC, 51-100 WBC Blood and urine cultures pending on IV ceftriaxone Review of Systems Review of Systems: All systems reviewed & are unremarkable except as noted in HPI and below Gastrointestinal: Gastrointestinal: Reports as per HPI Genitourinary: Genitourinary: Reports as per HPI [facility] Past Medical History Medical History (Updated 09/05/24 @ 10:55 by Bre Mujica APRN) Hyperlipidemia Hypertension Diabetes mellitus Family History Family History Mother Hypertension Father Cerebrovascular accident Social History Social History Smoking status: Never smoker Alcohol intake: current Substance use: never Substance use type: does not use Do You Feel Safe in your Home?: No Lack of Transportation: No Lack of Food: Never True Current Housing: I Have Housing Concerned About Future Housing: No Difficulty Paying Gas/Electric Bills: No Difficulty Paying for Meds: No Currently Unemployed: No Education: Trade/Vocational Certificate Difficulty w/ Childcare or Family Care: No Spiritual care concerns: No Meds Home Medications and Allergies Home Medications ?Medication ?Instructions ?Recorded ?Confirmed ?Type atorvastatin 20 mg tablet 20 mg PO QPM 10/22/21 09/04/24 History losartan 50 mg tablet 50 mg PO DAILY 09/04/24 09/04/24 History metformin 500 mg tablet,extended 500 mg PO QPM 09/04/24 09/04/24 History release 24 hr Allergies Allergy/AdvReac Type Severity Reaction Status Date / Time No Known Allergies Allergy Verified 10/22/21 11:42 Vital Signs Vital Signs - 24 hr 09/04/24 14:07 09/04/24 19:40 09/04/24 22:11 Temperature 98.1 F 99.8 F H 98.1 F Pulse Rate 82 92 71 Respiratory Rate 16 16 17 Blood Pressure 168/71 H 168/87 H 162/86 H Pulse Oximetry 100 100 97 Oxygen Delivery 09/04/24 22:58 09/04/24 23:44 09/05/24 04:06 Temperature 97.4 F L 98.0 F Pulse Rate 80 80 91 Respiratory Rate 18 18 17 Blood Pressure 153/62 H 149/68 H Pulse Oximetry 100 100 100 Oxygen Delivery Room Air 09/05/24 09:59 Temperature Pulse Rate Respiratory Rate Blood Pressure Pulse Oximetry Oxygen Delivery Room Air Exam Const: General: comfortable and no acute distress HENMT: Face/Nose/Sinus: Normal nares present Eyes: General: appearance normal, both eyes and all related structures Resp: Effort & Inspection: normal respiratory effort GI: Other: Largely obese abdomen : Other: Urethral swelling Urinary Catheter: Urinary Catheter: patent and draining Skin: General skin exam: normal color Neuro: General: gait normal Speech: normal speech Extrem: General: normal to inspection Psych: Speech and movement: Normal speech and movement present Results Labs 09/05/24 07:21 09/05/24 07:21 Labs: Short CBC 09/04/24 09/05/24 Range/Units 18:30 07:21 WBC 17.0 H 13.0 H (4.5-10.0) K/mm3 Hgb 13.6 11.8 L (12.0-15.0) g/dL Hct 41.8 36.8 L (37.0-47.0) % Plt Count 215 177 (150-375) k/mm3 BMP 09/04/24 09/05/24 18:30 07:21 Sodium 138 139 Potassium 4.9 5.0 Chloride 104 109 H Carbon Dioxide 20 L 19 L BUN 41 H 39 H Creatinine 4.12 H 2.87 H Glucose 125 H 104 Calcium 9.1 8.3 L Liver Function 09/04/24 09/05/24 Range/Units 18:30 07:21 Total Bilirubin 0.7 0.7 (0.2-1.3) mg/dL AST 19 17 (14-36) U/L ALT 15 13 (6-35) U/L Alkaline Phosphatase 123 105 (38-126) U/L Albumin 4.1 3.4 L (3.5-5.1) g/dL Urine 09/04/24 Range/Units 14:15 Urine Color [place] H (Yellow) Urine Appearance Turbid H (Clear) Urine pH 6.0 (5.0-9.0) Ur Specific [place] 1.011 (1.001-1.035) Urine Protein 3+ H (Negative) mg/dL Urine Glucose (UA) Negative (Negative) mg/dL
[2024-09-05 12:16] LABS: Hemoglobin A1C 6.1 % (<5.7)
[2024-09-05 14:00] VITALS: BP 143/52; PULSE 89; RESP 18; TEMP 36.4; O2SAT 100
[2024-09-05] MEDS: ACETAMINOPHEN 325 MG TABLET 650 MG PO (15:46)
[2024-09-05] MEDS: LIDOCAINE 2% GEL UROJET 10 ML PKG MUCOUS MEM (15:48)
[2024-09-05 17:14] LABS: Glucose Point of Care 120 mg/dl (65-105)
[2024-09-05] MEDS: SOLIFENACIN 5 MG TABLET PO (17:36)
[2024-09-05] MEDS: ATORVASTATIN 20 MG TABLET PO (17:36)
[2024-09-05 22:00] VITALS: BP 138/71; PULSE 99; RESP 16; TEMP 36.9; O2SAT 100
[2024-09-06] MEDS: LACTATED RINGERS 1,000 ML 125 ML IV CONT ×3 (03:19→20:44)
[2024-09-06 05:50] LABS: Basophils Percent Auto 0.4 % (0.2-1.2); Eosinophils Absolute Auto 0.2 K/mm3 (0-0.3); Eosinophils Percent Auto 2.2 % (0-4.4); Hematocrit 32.8 % (37.0-47.0); Hemoglobin 10.8 g/dL (12.0-15.0); Immature Granulocyte Absolute 0.06 K/mm3 (0.00-0.031); Immature Granulocyte Percent A 0.6 % (0-0.5); Immature Platelet Fraction Pct 9.1 % (0.9-11.2); Lymphocytes Percent Auto 23.4 % (18.3-44.2); Mean Corpuscular HGB Conc 32.9 g/dl (32-36); Mean Corpuscular Hemoglobin 31.4 pg (26-34); Mean Corpuscular Volume 95.3 fl (80-100); Mean Platelet Volume 13.1 fl (7.4-10.4); Monocytes Absolute Auto 0.9 K/mm3 (0.1-0.6); Monocytes Percent Auto 9.2 % (2.6-8.5); Neutrophils Percent Auto 64.2 % (45.5-73.1); Platelet Count Result 182 k/mm3 (150-375); Red Blood Count 3.44 M/mm3 (4.2-5.4); Red Cell Distribution Width 14.1 % (11.5-14.5); White Blood Count 9.4 K/mm3 (4.5-10.0)
[2024-09-06 06:00] VITALS: BP 149/60; PULSE 79; RESP 16; TEMP 36.7; O2SAT 100
[2024-09-06 06:06] LABS: Alanine Aminotransferase 12 U/L (6-35); Alkaline Phosphatase 103 U/L (38-126); Anion Gap 8 mmol/L (4-12); Aspartate Amino Transferase 17 U/L (14-36); Bilirubin,Total 0.5 mg/dL (0.2-1.3); Blood Urea Nitrogen 21 mg/dL (7-17); Calcium 8.6 mg/dL (8.4-10.2); Carbon Dioxide 25 mmol/L (22-30); Chloride 111 mmol/L (98-107); Estimated CRCL calculation 51 ml/min; Estimated Glomerular Filt Rate 46; Glucose 116 mg/dL (65-110); Potassium 4.2 mmol/L (3.4-5.0); Sodium 144 mmol/L (137-145)
[2024-09-06 08:15] LABS: Glucose Point of Care 133 mg/dl (65-105)
[2024-09-06] MEDS: ACETAMINOPHEN 325 MG TABLET 650 MG PO ×3 (08:25→20:46)
[2024-09-06] MEDS: SOLIFENACIN 5 MG TABLET PO (08:26)
[2024-09-06] MEDS: LOSARTAN POTASSIUM 50 MG TABLET PO (08:26)
[2024-09-06 11:59] LABS: Glucose Point of Care 106 mg/dl (65-105)
--- NOTE | 2024-09-06 13:06 | P.PNIM_ITS ---
Progress Note: A&P Assessment and Plan (1) Acute renal failure: Qualifiers: Acute renal failure type: unspecified Qualified Code(s): N17.9 - Acute kidney failure, unspecified Code(s): N17.9 - Acute kidney failure, unspecified Status: Acute Assessment and Plan: 09/05/24: * Pt presented with Cr/BUN of 4.12/41. * Unknown baseline, but presumed normal range. * Found to have hydroureteronephrosis bilaterally without definite obstruction. * Symptomatic with UTI, failed outpt meds. * Nephrology consulted - appreciate their recommendations. * Trend labs with renal function * Post void residuals 09/06/24: * Resolving with renal function of 1. * Continue [place] catheter that was inserted by Urology. * Repeat renal US tomorrow morning. * Will need outpt urodynamic testing and follow up with Urology as outpt. * Pt will be discharged with catheter. (2) Leukocytosis: Code(s): D72.829 - Elevated white blood cell count, unspecified Status: Resolved Assessment and Plan: 09/05/24: * Continue to trend. 17.0-->13.0. * Continue abx to treat infection. * Urine culture and blood cultures pending. 09/06/24: * Leukocytosis resolved today with WBC's at 9.4. * Urine culture negative for growth * BC still pending but NGTD (3) Hydroureteronephrosis: Code(s): N13.30 - Unspecified hydronephrosis Status: Acute Assessment and Plan: 09/05/24: * Pt presented with Cr/BUN of 4.12/41. * Unknown baseline, but presumed normal range. * Found to have hydroureteronephrosis bilaterally without definite obstruction. * Symptomatic with UTI, failed outpt meds. * Urology consulted - appreciate their recommendations. * Trend labs with renal function * Post void residuals 09/06/24: * Renal US tomorrow to reassess degree of hydronephrosis since catheter has been placed. * Urology continuing to follow. (4) Cystitis: Code(s): N30.90 - Cystitis, unspecified without hematuria Status: Acute Assessment and Plan: 09/05/24: * Continue to trend. 17.0-->13.0. * Continue abx to treat infection. * Urine culture and blood cultures pending. 09/06/24: * Leukocytosis resolved today with WBC's at 9.4. * Urine culture negative for growth * BC still pending but NGTD (5) Diabetes mellitus: Code(s): E11.9 - Type 2 diabetes mellitus without complications Status: Acute Assessment and Plan: 09/05/24: * Hold metformin in setting of BRANDI. * Glucose checks AC and HS. * Check A1C. * Initiate adult insulin protocol if needed after checking glucose AC and HS. * Diabetic diet 09/06/24: * Continue current treatment. (6) Hypertension: Code(s): I10 - Essential (primary) hypertension Status: Acute Assessment and Plan: 09/05/24: * Losartan 50 mg po daily. * Monitor and trend BPs 09/06/24: * Continue current treatment and monitor response. (7) Hyperlipidemia: Code(s): E78.5 - Hyperlipidemia, unspecified Status: Acute Assessment and Plan: 09/05/24: * Continue Lipitor 20 mg QHS. 09/06/24: * Continue current treatment. * Diabetic diet Time Spent With Patient Time with patient: 15 - 25 minutes Subjective Date/time seen: 09/06/24 0945 Interval history: Pt evaluated today at the bedside. She has been evaluated by Urology and will have a repeat Renal US in the AM. She will also need a urodynamics study as outpt and follow up with Urology. A trinidad catheter was replaced yesterday by urology at the bedside. Her Urine cx returned negative for growth and her Blood cultures are NGTD. She states she had immediate improvement in her overall pain since the catheter was replaced. No new complaints or symptoms. Review of Systems Review of Systems: All systems reviewed & are unremarkable except as noted in HPI and below Exam Narrative: Pleasant, female pt sitting up in bed in no acute distress. Const: General: comfortable and no acute distress HENMT: Mouth: Yes moist mucous membranes Eyes: General: appearance normal, both eyes and all related structures Neck: Neck: supple and no JVD Resp: Effort & Inspection: normal respiratory effort Auscultation: clear to auscultation bilaterally Cardio: Rate: regular rate Rhythm: regular rhythm Heart sounds: no gallops, no murmurs and no rubs GI: Inspection: non-distended Other: Low, suprapubic tenderness to palpation. Skin: General skin exam: normal color, no rashes or lesions noted, No lesion and No rashes Lesions: no lesions noted Rashes: no rashes noted Wounds: no wounds Neuro: General: gait normal Speech: normal speech Motor exam (neuro): 5/5 motor strength present throughout Sensory Exam: normal sensation Extrem: General: normal to inspection and no edema Psych: Mental Status: mental status grossly normal Affect: normal affect Objective Data Vital Signs Vital Signs: Vital Signs - 24 hr 09/05/24 14:00 09/05/24 20:00 09/05/24 22:00 Temperature 97.6 F 98.5 F Pulse Rate 89 99 Respiratory Rate 18 16 Blood Pressure 143/52 H 138/71 Pulse Oximetry 100 100 Oxygen Delivery Room Air 09/06/24 06:00 Temperature 98.0 F Pulse Rate 79 Respiratory Rate 16 Blood Pressure 149/60 H Pulse Oximetry 100 Oxygen Delivery Intake/Output Intake/Output: Intake & Output 09/03/24 09/04/24 09/05/24 09/06/24 23:59 23:59 23:59 23:59 Intake Total 4050 3280.0 2879.6 Output Total 900 5200 2600 Balance 3150 -1920.0 279.6 Meds/Results Medications: Active Medications Generic Name Dose Route Start Last Admin Trade Name Freq PRN Reason Stop Dose Admin Acetaminophen 650 mg 09/04/24 21:24 09/06/24 08:25 Acetaminophen 325 Mg Tablet PO 650 mg Q4H PRN Administration Mild Pain (1-3) or Fever Atorvastatin Calcium 20 mg 09/05/24 18:00 09/05/24 17:36 Atorvastatin 20 Mg Tablet PO 20 mg QPM SAMAN Administration Lactated Ringer's 1,000 mls @ 125 mls/hr 09/04/24 21:25 09/06/24 12:07 Lr - Lactated Ringers Iv IV CONT 125 mls/hr .Q8H SAMAN Administration Ceftriaxone Sodium 1 gm in 50 mls @ 100 mls/hr 09/05/24 09:00 09/06/24 09:04 Rocephin 1 Gm/Ns 50 Ml IVPB Infused Q24H SAMAN Infusion Losartan Potassium 50 mg 09/05/24 09:00 09/06/24 08:26 Losartan Potassium 50 Mg Tablet PO 50 mg DAILY SAMAN Administration Ondansetron HCl 4 mg 09/04/24 21:24 Ondansetron Inj 4 Mg/2 Ml Vial IV PUSH Q4H PRN Nausea Solifenacin 5 mg 09/05/24 16:00 09/06/24 08:26 Solifenacin 5 Mg Tablet PO 5 mg QAM SAMAN Administration Radiology Results: ITS Impressions Abdomen/Pelvis CT 09/04/24 19:10 IMPRESSION: Significant right-sided hydroureteronephrosis without a discrete source of obstruction identified Marked bladder distention with surrounding inflammatory change for which compression and post decompression renal ultrasound is suggested. ADDENDUM: 09/04/242015 Please note, that the impression should read significant right-sided hydroureteronephrosis without a discrete source of obstruction identified. Marked bladder distention with surrounding inflammatory change for which DECOMPRESSION followed by POST DECOMPRESSION RENAL ULTRASOUND is suggested. These findings were discussed with YEIMY Palacios at 1905 on 09/04/2024 Renal Ultrasound 09/04/24 20:07 IMPRESSION: Severe right-sided and mild left-sided hydroureteronephrosis with persistent bladder distention and nonvisualization of the ureteral jets. Recommend bladder decompression followed by repeat ultrasound to confirm resolution of the aforementioned hydroureteronephrosis. Labs Labs: Laboratory Results - last 24 hr 09/05/24 09/06/24 09/06/24 17:12 05:25 08:03 WBC 9.4 RBC 3.44 L Hgb 10.8 L Hct 32.8 L MCV 95.3 MCH 31.4 MCHC 32.9 RDW 14.1 Plt Count 182 MPV 13.1 H Immature Gran % (Auto) 0.6 H Neut % (Auto) 64.2 Lymph % (Auto) 23.4 [place] % (Auto) 9.2 H Eos % (Auto) 2.2 Baso % (Auto) 0.4 Lymph # (Auto) 2.20 [place] # (Auto) 0.9 H Eos # (Auto) 0.2 Baso # (Auto) 0.0 Abs Immat Gran (auto) 0.06 H Absolute Neuts (auto) 6.0 Absolute Nucleated RBC 0.000 Nucleated RBC % 0.0 % Immature Plt Fraction 9.1 Sodium 144 Potassium 4.2 Chloride 111 H Carbon Dioxide 25 Anion Gap 8 BUN 21 H D Creatinine 1.21 H Estim Creat Clear Calc 51 Estimated GFR 46 L Glucose 116 H POC Capillary Glucose 120 H 133 H Calcium 8.6 Total Bilirubin 0.5 AST 17 ALT 12 Alkaline Phosphatase 103 Total Protein 6.0 L Albumin 3.0 L 09/06/24 11:52 WBC RBC Hgb Hct MCV MCH MCHC RDW Plt Count MPV Immature Gran % (Auto) Neut % (Auto) Lymph % (Auto) [place] % (Auto) Eos % (Auto) Baso % (Auto) Lymph # (Auto) [place] # (Auto) Eos # (Auto) Baso # (Auto) Abs Immat Gran (auto) Absolute Neuts (auto) Absolute Nucleated RBC Nucleated RBC % % Immature Plt Fraction Sodium Potassium Chloride Carbon Dioxide Anion Gap BUN Creatinine Estim Creat Clear Calc Estimated GFR Glucose POC Capillary Glucose 106 H Calcium Total Bilirubin AST ALT Alkaline Phosphatase Total Protein Albumin Quality VTE Prophylaxis VTE prophylaxis: pharmacologic ordered
[2024-09-06 14:00] VITALS: BP 150/65; PULSE 74; RESP 18; TEMP 36.4; O2SAT 100
[2024-09-06] MEDS: ENOXAPARIN 40 MG/0.4 ML SYRINGE SUB-Q (14:26)
--- NOTE | 2024-09-06 14:47 | P.PNUR_ITS ---
Progress Note: A&P Assessment and Plan (1) Hydroureteronephrosis: Code(s): N13.30 - Unspecified hydronephrosis Status: Acute (2) Acute renal failure: Qualifiers: Acute renal failure type: unspecified Qualified Code(s): N17.9 - Acute kidney failure, unspecified Code(s): N17.9 - Acute kidney failure, unspecified Status: Acute (3) Acute urinary retention: Code(s): R33.8 - Other retention of urine Status: Acute (4) Acute cystitis with hematuria: Code(s): N30.01 - Acute cystitis with hematuria Status: Acute Plan Pleasant 69yoF admitted 09/04/24 with acute renal failure, acute urinary retention, severe right hydroureteronephrosis. Urine culture negative. Leuk ocytosis downtrending, WBC 9.4 from 13 from 17 on IV ceftriaxone. Renal function improved, Cr 1.2 from 4.2 with bladder decompression. Indwelling Kothari draining yellow, blood tinged. She had a traumatic Kothari removal in the ER prior to urology consult. 09/04/24 CT reviewed: unilateral severe hydroureteronephrosis without clear source of obstruction. Differential diagnosis includes ureteral stricture, malignancy, recently passed nephrolithiasis, severe cystitis, pyelonephritis. - Maintain indwelling Kothari catheter to maximize bladder drainage as she recovers from acute renal failure. - Solifenacin 5mg Q24 for bladder spasms - Trend Cr, follow I&Os - Renal ultrasound tomorrow morning to reassess right hydro. - She may require diagnostic cystoscopy, right retrograde pyelogram, right ureteral stent placement if no improvement after 24-48hrs of bladder decompression. NPO at midnight in case she needs to go to the OR. - Blood cultures NGTD. Urine culture neg - Plan to establish with outpatient urology for advanced bladder workup to include urodynamics Subjective Subjective Date/Time Seen: 09/06/24 14:47 Interval history: NAEO; Patient OOB to chair resting comfortably. Indwelling Kothari draining yellow, blood-tinged urine. Patient denies pain related to catheter. Exam Const: General: comfortable and no acute distress Urinary Catheter: Urinary Catheter: patent and draining and other (yellow, blood tinged) Objective Data Vital Signs Vital Signs: Vital Signs - 24 hr 09/05/24 20:00 09/05/24 22:00 09/06/24 06:00 Temperature 98.5 F 98.0 F Pulse Rate 99 79 Respiratory Rate 16 16 Blood Pressure 138/71 149/60 H Pulse Oximetry 100 100 Oxygen Delivery Room Air Intake/Output Intake/Output: Intake & Output 09/03/24 09/04/24 09/05/24 09/06/24 23:59 23:59 23:59 23:59 Intake Total 4050 3280.0 3119.6 Output Total 900 5200 3200 Balance 3150 -1920.0 -80.4 Meds/Results Medications: Active Medications Generic Name Dose Route Start Last Admin Trade Name Freq PRN Reason Stop Dose Admin Acetaminophen 650 mg 09/04/24 21:24 09/06/24 14:24 Acetaminophen 325 Mg Tablet PO 650 mg Q4H PRN Administration Mild Pain (1-3) or Fever Atorvastatin Calcium 20 mg 09/05/24 18:00 09/05/24 17:36 Atorvastatin 20 Mg Tablet PO 20 mg QPM SAMAN Administration Enoxaparin Sodium 40 mg 09/06/24 13:40 09/06/24 14:26 Enoxaparin 40 Mg/0.4 Ml Syringe SUB-Q 40 mg DAILY SAMAN Administration Hyoscyamine 0.125 mg 09/06/24 14:32 Hyoscyamine Sulfate 0.125 Mg Tablet PO Q4H PRN Bladder Spasm Lactated Ringer's 1,000 mls @ 125 mls/hr 09/04/24 21:25 09/06/24 12:07 Lr - Lactated Ringers Iv IV CONT 125 mls/hr .Q8H SAMAN Administration Ceftriaxone Sodium 1 gm in 50 mls @ 100 mls/hr 09/05/24 09:00 09/06/24 09:04 Rocephin 1 Gm/Ns 50 Ml IVPB Infused Q24H SAMAN Infusion Losartan Potassium 50 mg 09/05/24 09:00 09/06/24 08:26 Losartan Potassium 50 Mg Tablet PO 50 mg DAILY SAMAN Administration Ondansetron HCl 4 mg 09/04/24 21:24 Ondansetron Inj 4 Mg/2 Ml Vial IV PUSH Q4H PRN Nausea Solifenacin 5 mg 09/05/24 16:00 09/06/24 08:26 Solifenacin 5 Mg Tablet PO 5 mg QAM SAMAN Administration Radiology Results: ITS Impressions Abdomen/Pelvis CT 09/04/24 19:10 IMPRESSION: Significant right-sided hydroureteronephrosis without a discrete source of obstruction identified Marked bladder distention with surrounding inflammatory change for which compression and post decompression renal ultrasound is suggested. ADDENDUM: 09/04/242015 Please note, that the impression should read significant right-sided hydroureteronephrosis without a discrete source of obstruction identified. Marked bladder distention with surrounding inflammatory change for which DECOMPRESSION followed by POST DECOMPRESSION RENAL ULTRASOUND is suggested. These findings were discussed with YEIMY Palacios at 1905 on 09/04/2024 Renal Ultrasound 09/04/24 20:07 IMPRESSION: Severe right-sided and mild left-sided hydroureteronephrosis with persistent bladder distention and nonvisualization of the ureteral jets. Recommend bladder decompression followed by repeat ultrasound to confirm resolution of the aforementioned hydroureteronephrosis. Labs Labs: Laboratory Results - last 24 hr 09/05/24 09/06/24 09/06/24 17:12 05:25 08:03 WBC 9.4 RBC 3.44 L Hgb 10.8 L Hct 32.8 L MCV 95.3 MCH 31.4 MCHC 32.9 RDW 14.1 Plt Count 182 MPV 13.1 H Immature Gran % (Auto) 0.6 H Neut % (Auto) 64.2 Lymph % (Auto) 23.4 [place] % (Auto) 9.2 H Eos % (Auto) 2.2 Baso % (Auto) 0.4 Lymph # (Auto) 2.20 [place] # (Auto) 0.9 H Eos # (Auto) 0.2 Baso # (Auto) 0.0 Abs Immat Gran (auto) 0.06 H Absolute Neuts (auto) 6.0 Absolute Nucleated RBC 0.000 Nucleated RBC % 0.0 % Immature Plt Fraction 9.1 Sodium 144 Potassium 4.2 Chloride 111 H Carbon Dioxide 25 Anion Gap 8 BUN 21 H D Creatinine 1.21 H Estim Creat Clear Calc 51 Estimated GFR 46 L Glucose 116 H POC Capillary Glucose 120 H 133 H Calcium 8.6 Total Bilirubin 0.5 AST 17 ALT 12 Alkaline Phosphatase 103 Total Protein 6.0 L Albumin 3.0 L 09/06/24 11:52 WBC RBC Hgb Hct MCV MCH MCHC RDW Plt Count MPV Immature Gran % (Auto) Neut % (Auto) Lymph % (Auto) [place] % (Auto) Eos % (Auto) Baso % (Auto) Lymph # (Auto) [place] # (Auto) Eos # (Auto) Baso # (Auto) Abs Immat Gran (auto) Absolute Neuts (auto) Absolute Nucleated RBC Nucleated RBC % % Immature Plt Fraction Sodium Potassium Chloride Carbon Dioxide Anion Gap BUN Creatinine Estim Creat Clear Calc Estimated GFR Glucose POC Capillary Glucose 106 H Calcium Total Bilirubin AST ALT Alkaline Phosphatase Total Protein Albumin
[2024-09-06] MEDS: HYOSCYAMINE SULFATE 0.125 MG TABLET PO ×2 (15:49→20:46)
[2024-09-06] MEDS: ATORVASTATIN 20 MG TABLET PO (17:11)
[2024-09-06 17:19] LABS: Glucose Point of Care 184 mg/dl (65-105)
[2024-09-06 20:00] VITALS: O2SAT 100
[2024-09-06 21:04] VITALS: BP 145/71; PULSE 78; RESP 20; TEMP 36.8; O2SAT 100
[2024-09-06 21:13] LABS: Glucose Point of Care 93 mg/dl (65-105)
[2024-09-07] MEDS: LACTATED RINGERS 1,000 ML 125 ML IV CONT ×3 (04:40→21:18)
[2024-09-07 05:11] VITALS: BP 169/75; PULSE 73; RESP 20; TEMP 36.9; O2SAT 96
[2024-09-07 08:18] LABS: Glucose Point of Care 102 mg/dl (65-105)
[2024-09-07 08:49] LABS: Basophils Percent Auto 0.5 % (0.2-1.2); Eosinophils Absolute Auto 0.5 K/mm3 (0-0.3); Hematocrit 36.6 % (37.0-47.0); Hemoglobin 11.7 g/dL (12.0-15.0); Immature Granulocyte Absolute 0.04 K/mm3 (0.00-0.031); Immature Granulocyte Percent A 0.5 % (0-0.5); Lymphocytes Absolute Auto 2.48 K/mm3 (0.9-3.2); Lymphocytes Percent Auto 30.2 % (18.3-44.2); Mean Corpuscular Hemoglobin 30.8 pg (26-34); Mean Corpuscular Volume 96.3 fl (80-100); Mean Platelet Volume 12.7 fl (7.4-10.4); Monocytes Absolute Auto 0.5 K/mm3 (0.1-0.6); Monocytes Percent Auto 6.6 % (2.6-8.5); Neutrophils Absolute Auto 4.6 K/mm3 (1.3-6.7); Neutrophils Percent Auto 56.2 % (45.5-73.1); Platelet Count Result 219 k/mm3 (150-375); Red Cell Distribution Width 13.8 % (11.5-14.5); White Blood Count 8.2 K/mm3 (4.5-10.0)
[2024-09-07 09:28] LABS: Alanine Aminotransferase 15 U/L (6-35); Albumin Level 3.3 g/dL (3.5-5.1); Alkaline Phosphatase 100 U/L (38-126); Anion Gap 8 mmol/L (4-12); Aspartate Amino Transferase 19 U/L (14-36); Bilirubin,Total 0.5 mg/dL (0.2-1.3); Blood Urea Nitrogen 11 mg/dL (7-17); Calcium 8.7 mg/dL (8.4-10.2); Carbon Dioxide 27 mmol/L (22-30); Chloride 109 mmol/L (98-107); Estimated CRCL calculation 83 ml/min; Estimated Glomerular Filt Rate > 60; Glucose 112 mg/dL (65-110); Potassium 3.9 mmol/L (3.4-5.0); Sodium 144 mmol/L (137-145)
[2024-09-07 12:12] LABS: Glucose Point of Care 105 mg/dl (65-105)
[2024-09-07 14:00] VITALS: BP 140/57; PULSE 71; RESP 16; TEMP 36.7; O2SAT 100
[2024-09-07] MEDS: LOSARTAN POTASSIUM 50 MG TABLET PO (14:32)
[2024-09-07] MEDS: SOLIFENACIN 5 MG TABLET PO (14:32)
--- NOTE | 2024-09-07 14:35 | P.PNUR_ITS ---
Progress Note: A&P Assessment and Plan (1) Hydroureteronephrosis: Code(s): N13.30 - Unspecified hydronephrosis Status: Acute Assessment and Plan: Severe, Right Unknown etiology (2) Acute renal failure: Qualifiers: Acute renal failure type: unspecified Qualified Code(s): N17.9 - Acute kidney failure, unspecified Code(s): N17.9 - Acute kidney failure, unspecified Status: Acute Assessment and Plan: Resolved (3) Acute urinary retention: Code(s): R33.8 - Other retention of urine Status: Acute Assessment and Plan: Currently managed with indwelling Kothari (4) Acute cystitis with hematuria: Code(s): N30.01 - Acute cystitis with hematuria Status: Acute Assessment and Plan: Urine culture negative Plan Pleasant 69yoF admitted 09/04/24 with acute renal failure, acute urinary retention, severe right hydroureteronephrosis. Urine culture negative. Leukocytosis resolved, WBC 8.2 (peak 17) on IV ceftriaxone. Renal failure resolved, Cr 0.72 (peak 4.2 prior to Kothari placement). Indwelling Kothari draining yellow, blood tinged. She had a traumatic Kothari removal in the ER prior to urology consult. No previous history of retention, stones, hematuria, recurrent UTI. 09/04/24 CT reviewed: unilateral severe hydroureteronephrosis without clear source of obstruction. Differential diagnosis includes ureteral stricture, malignancy, recently passed nephrolithiasis, severe cystitis, pyelonephritis. 09/07/24 Renal bladder ultrasound IMPRESSION: 1. Persistent mild left-sided and severe right-sided hydronephrosis with the bladder distended, the with the right hydronephrosis to moderate severity following decompression of the bladder. 2. Diffuse bladder wall thickening which could be due to cystitis or chronic outlet obstruction. - Persistent severe right hydroureteronephrosis on TALHA despite bladder decompression. Lasix renal scan ordered for today to further assess right kidney, however, radiology unable to complete study until 09/10/24 - Given renal function is stable, will plan on outpatient Lasix renal scan and close follow-up with Dr. Covarrubias for diagnostic cystoscopy, ureteroscopy, etc. Urologically cleared for discharge when OK with others. - Maintain indwelling Kothari catheter to maximize bladder drainage, continue on discharge - Solifenacin 5mg Q24h for bladder spasms - Blood cultures NGTD. Urine culture neg. Subjective Subjective Date/Time Seen: 09/07/24 14:35 Interval history: NAEO; Patient resting comfortably on exam, no issue with indwelling Kothari overnight. TALHA today shows persistent severe right hydro despite bladder decompression. Exam Const: General: comfortable and no acute distress Urinary Catheter: Urinary Catheter: patent and draining and other (yellow, blood tinged) Objective Data Vital Signs Vital Signs: Vital Signs - 24 hr 09/06/24 20:00 09/06/24 21:04 09/07/24 05:11 Temperature 98.3 F 98.5 F Pulse Rate 78 73 Respiratory Rate 20 20 Blood Pressure 145/71 H 169/75 H Pulse Oximetry 100 100 96 Oxygen Delivery Room Air 09/07/24 14:00 Temperature 98.1 F Pulse Rate 71 Respiratory Rate 16 Blood Pressure 140/57 L Pulse Oximetry 100 Oxygen Delivery Intake/Output Intake/Output: Intake & Output 09/04/24 09/05/24 09/06/24 09/07/24 23:59 23:59 23:59 23:59 Intake Total 4050 3280.0 4479.6 2050 Output Total 900 5200 4500 1800 Balance 3150 -1920.0 -20.4 250 Meds/Results Medications: Active Medications Generic Name Dose Route Start Last Admin Trade Name Freq PRN Reason Stop Dose Admin Acetaminophen 650 mg 09/04/24 21:24 09/06/24 20:46 Acetaminophen 325 Mg Tablet PO 650 mg Q4H PRN Administration Mild Pain (1-3) or Fever Atorvastatin Calcium 20 mg 09/05/24 18:00 09/06/24 17:11 Atorvastatin 20 Mg Tablet PO 20 mg QPM SAMAN Administration Enoxaparin Sodium 40 mg 09/06/24 13:40 09/07/24 14:12 Enoxaparin 40 Mg/0.4 Ml Syringe SUB-Q Not Given DAILY SAMAN Furosemide 40 mg 09/07/24 14:33 Furosemide Inj 40 Mg/4 Ml Vial IV PUSH 09/07/24 14:34 ONCE ONE Hyoscyamine 0.125 mg 09/06/24 14:32 09/06/24 20:46 Hyoscyamine Sulfate 0.125 Mg Tablet PO 0.125 mg Q4H PRN Administration Bladder Spasm Lactated Ringer's 1,000 mls @ 125 mls/hr 09/04/24 21:25 09/07/24 12:49 Lr - Lactated Ringers Iv IV CONT 125 mls/hr .Q8H SAMAN Administration Ceftriaxone Sodium 1 gm in 50 mls @ 100 mls/hr 09/05/24 09:00 09/07/24 09:48 Rocephin 1 Gm/Ns 50 Ml IVPB Infused Q24H SAMAN Infusion Losartan Potassium 50 mg 09/05/24 09:00 09/07/24 14:32 Losartan Potassium 50 Mg Tablet PO 50 mg DAILY SAMAN Administration Ondansetron HCl 4 mg 09/04/24 21:24 Ondansetron Inj 4 Mg/2 Ml Vial IV PUSH Q4H PRN Nausea Solifenacin 5 mg 09/05/24 16:00 09/07/24 14:32 Solifenacin 5 Mg Tablet PO 5 mg QAM SAMAN Administration Radiology Results: ITS Impressions Abdomen/Pelvis CT 09/04/24 19:10 IMPRESSION: Significant right-sided hydroureteronephrosis without a discrete source of obstruction identified Marked bladder distention with surrounding inflammatory change for which compression and post decompression renal ultrasound is suggested. ADDENDUM: 09/04/242015 Please note, that the impression should read significant right-sided hydroureteronephrosis without a discrete source of obstruction identified. Marked bladder distention with surrounding inflammatory change for which DECOMPRESSION followed by POST DECOMPRESSION RENAL ULTRASOUND is suggested. These findings were discussed with YEIMY Palacios at 1905 on 09/04/2024 Renal Ultrasound 09/07/24 09:26 IMPRESSION: 1. Persistent mild left-sided and severe right-sided hydronephrosis with the bladder distended, the with the right hydronephrosis to moderate severity following decompression of the bladder. 2. Diffuse bladder wall thickening which could be due to cystitis or chronic outlet obstruction. Labs Labs: Laboratory Results - last 24 hr 09/06/24 09/06/24 09/07/24 16:56 21:10 08:09 WBC RBC Hgb Hct MCV MCH MCHC RDW Plt Count MPV Immature Gran % (Auto) Neut % (Auto) Lymph % (Auto) [place] % (Auto) Eos % (Auto) Baso % (Auto) Lymph # (Auto) [place] # (Auto) Eos # (Auto) Baso # (Auto) Abs Immat Gran (auto) Absolute Neuts (auto) Absolute Nucleated RBC Nucleated RBC % Sodium Potassium Chloride Carbon Dioxide Anion Gap BUN Creatinine Estim Creat Clear Calc Estimated GFR Glucose POC Capillary Glucose 184 H 93 102 Calcium Total Bilirubin AST ALT Alkaline Phosphatase Total Protein Albumin 09/07/24 09/07/24 08:42 11:46 WBC 8.2 RBC 3.80 L Hgb 11.7 L Hct 36.6 L MCV 96.3 MCH 30.8 MCHC 32.0 RDW 13.8 Plt Count 219 MPV 12.7 H Immature Gran % (Auto) 0.5 Neut % (Auto) 56.2 Lymph % (Auto) 30.2 [place] % (Auto) 6.6 Eos % (Auto) 6.0 H Baso % (Auto) 0.5 Lymph # (Auto) 2.48 [place] # (Auto) 0.5 Eos # (Auto) 0.5 H Baso # (Auto) 0.0 Abs Immat Gran (auto) 0.04 H Absolute Neuts (auto) 4.6 Absolute Nucleated RBC 0.000 Nucleated RBC % 0.0 Sodium 144 Potassium 3.9 Chloride 109 H Carbon Dioxide 27 Anion Gap 8 BUN 11 D Creatinine 0.72 Estim Creat Clear Calc 83 Estimated GFR > 60 Glucose 112 H POC Capillary Glucose 105 Calcium 8.7 Total Bilirubin 0.5 AST 19 ALT 15 Alkaline Phosphatase 100 Total Protein 7.0 Albumin 3.3 L
--- NOTE | 2024-09-07 14:44 | P.PNIM_ITS ---
Progress Note: A&P Assessment and Plan (1) Acute renal failure: Qualifiers: Acute renal failure type: unspecified Qualified Code(s): N17.9 - Acute kidney failure, unspecified Code(s): N17.9 - Acute kidney failure, unspecified Status: Acute Assessment and Plan: 09/05/24: * Pt presented with Cr/BUN of 4.12/41. * Unknown baseline, but presumed normal range. * Found to have hydroureteronephrosis bilaterally without definite obstruction. * Symptomatic with UTI, failed outpt meds. * Nephrology consulted - appreciate their recommendations. * Trend labs with renal function * Post void residuals 09/06/24: * Resolving with renal function of 1.21/21 * Continue [place] catheter that was inserted by Urology. * Repeat renal US tomorrow morning. * Will need outpt urodynamic testing and follow up with Urology as outpt. * Pt will be discharged with catheter. 09/07/24: * Repeat renal US showing persistent mild left sided and severe right sided hydronephrosis w/distended bladder with moderate to severe right sided hydro despite decompression. * Renal function today is normal at 0.72/11 * Urology obtaining additional information with Lasix renal scan and will decide treatment over the weekend. (2) Leukocytosis: Code(s): D72.829 - Elevated white blood cell count, unspecified Status: Resolved Assessment and Plan: 09/05/24: * Continue to trend. 17.0-->13.0. * Continue abx to treat infection. * Urine culture and blood cultures pending. 09/06/24: * Leukocytosis resolved today with WBC's at 9.4. * Urine culture negative for growth * BC still pending but NGTD 09/07/24: * Abx stopped. (3) Hydroureteronephrosis: Code(s): N13.30 - Unspecified hydronephrosis Status: Acute Assessment and Plan: 09/05/24: * Pt presented with Cr/BUN of 4.12/41. * Unknown baseline, but presumed normal range. * Found to have hydroureteronephrosis bilaterally without definite obstruction. * Symptomatic with UTI, failed outpt meds. * Urology consulted - appreciate their recommendations. * Trend labs with renal function * Post void residuals 09/06/24: * Renal US tomorrow to reassess degree of hydronephrosis since catheter has been placed. * Urology continuing to follow. 09/07/24: * Repeat renal US showing persistent mild left sided and severe right sided hydronephrosis w/distended bladder with moderate to severe right sided hydro despite decompression. * Renal function today is normal at 0.72/11 * Urology obtaining additional information with Lasix renal scan and will decide treatment over the weekend (4) Cystitis: Code(s): N30.90 - Cystitis, unspecified without hematuria Status: Resolved Assessment and Plan: 09/05/24: * Continue to trend. 17.0-->13.0. * Continue abx to treat infection. * Urine culture and blood cultures pending. 09/06/24: * Leukocytosis resolved today with WBC's at 9.4. * Urine culture negative for growth * BC still pending but NGTD (5) Diabetes mellitus: Code(s): E11.9 - Type 2 diabetes mellitus without complications Status: Acute Assessment and Plan: 09/05/24: * Hold metformin in setting of BRANDI. * Glucose checks AC and HS. * Check A1C. * Initiate adult insulin protocol if needed after checking glucose AC and HS. * Diabetic diet 09/06/24: * Continue current treatment. 09/07/24: * Continue current treatment. * Fasting glucose is 112. (6) Hypertension: Code(s): I10 - Essential (primary) hypertension Status: Acute Assessment and Plan: 09/05/24: * Losartan 50 mg po daily. * Monitor and trend BPs 09/06/24: * Continue current treatment and monitor response. (7) Hyperlipidemia: Code(s): E78.5 - Hyperlipidemia, unspecified Status: Acute Assessment and Plan: 09/05/24: * Continue Lipitor 20 mg QHS. 09/06/24: * Continue current treatment. * Diabetic diet Time Spent With Patient Time with patient: 15 - 25 minutes Subjective Date/time seen: 09/07/24 1445 Interval history: Pt seen and examined and is feeling better. Her renal function has completely recovered and she is not showing s/s of infection. Her repeat Renal US shows no improvement in appearance of the Hydronephrosis. I have spoken with urology who is going to obtain a Lasix renal scan, and then discuss the possibilities of treatment. She has no additional complaints or symptoms today. Review of Systems Review of Systems: All systems reviewed & are unremarkable except as noted in HPI and below Exam Narrative: Pleasant, female pt sitting up in bed in no acute distress. Const: General: comfortable and no acute distress HENMT: Mouth: Yes moist mucous membranes Eyes: General: appearance normal, both eyes and all related structures Neck: Neck: supple and no JVD Resp: Effort & Inspection: normal respiratory effort Auscultation: clear to auscultation bilaterally Cardio: Rate: regular rate Rhythm: regular rhythm Heart sounds: no gallops, no murmurs and no rubs GI: Inspection: non-distended Other: Low, suprapubic tenderness to palpation. Skin: General skin exam: normal color, no rashes or lesions noted, No lesion and No rashes Lesions: no lesions noted Rashes: no rashes noted Wounds: no wounds Neuro: General: gait normal Speech: normal speech Motor exam (neuro): 5/5 motor strength present throughout Sensory Exam: normal sensation Extrem: General: normal to inspection and no edema Psych: Mental Status: mental status grossly normal Affect: normal affect Objective Data Vital Signs Vital Signs: Vital Signs - 24 hr 09/06/24 20:00 09/06/24 21:04 09/07/24 05:11 Temperature 98.3 F 98.5 F Pulse Rate 78 73 Respiratory Rate 20 20 Blood Pressure 145/71 H 169/75 H Pulse Oximetry 100 100 96 Oxygen Delivery Room Air 09/07/24 14:00 Temperature 98.1 F Pulse Rate 71 Respiratory Rate 16 Blood Pressure 140/57 L Pulse Oximetry 100 Oxygen Delivery Intake/Output Intake/Output: Intake & Output 09/04/24 09/05/24 09/06/24 09/07/24 23:59 23:59 23:59 23:59 Intake Total 4050 3280.0 4479.6 2050 Output Total 900 5200 4500 1800 Balance 3150 -1920.0 -20.4 250 Meds/Results Medications: Active Medications Generic Name Dose Route Start Last Admin Trade Name Freq PRN Reason Stop Dose Admin Acetaminophen 650 mg 09/04/24 21:24 09/06/24 20:46 Acetaminophen 325 Mg Tablet PO 650 mg Q4H PRN Administration Mild Pain (1-3) or Fever Atorvastatin Calcium 20 mg 09/05/24 18:00 09/06/24 17:11 Atorvastatin 20 Mg Tablet PO 20 mg QPM SAMAN Administration Enoxaparin Sodium 40 mg 09/06/24 13:40 09/07/24 14:12 Enoxaparin 40 Mg/0.4 Ml Syringe SUB-Q Not Given DAILY SAMAN Furosemide 40 mg 09/07/24 14:33 Furosemide Inj 40 Mg/4 Ml Vial IV PUSH 09/07/24 14:34 ONCE ONE Hyoscyamine 0.125 mg 09/06/24 14:32 09/06/24 20:46 Hyoscyamine Sulfate 0.125 Mg Tablet PO 0.125 mg Q4H PRN Administration Bladder Spasm Lactated Ringer's 1,000 mls @ 125 mls/hr 09/04/24 21:25 09/07/24 12:49 Lr - Lactated Ringers Iv IV CONT 125 mls/hr .Q8H SAMAN Administration Ceftriaxone Sodium 1 gm in 50 mls @ 100 mls/hr 09/05/24 09:00 09/07/24 09:48 Rocephin 1 Gm/Ns 50 Ml IVPB Infused Q24H SAMAN Infusion Losartan Potassium 50 mg 09/05/24 09:00 09/07/24 14:32 Losartan Potassium 50 Mg Tablet PO 50 mg DAILY SAMAN Administration Ondansetron HCl 4 mg 09/04/24 21:24 Ondansetron Inj 4 Mg/2 Ml Vial IV PUSH Q4H PRN Nausea Solifenacin 5 mg 09/05/24 16:00 09/07/24 14:32 Solifenacin 5 Mg Tablet PO 5 mg QAM SAMAN Administration Radiology Results: ITS Impressions Abdomen/Pelvis CT 09/04/24 19:10 IMPRESSION: Significant right-sided hydroureteronephrosis without a discrete source of obstruction identified Marked bladder distention with surrounding inflammatory change for which compression and post decompression renal ultrasound is suggested. ADDENDUM: 09/04/242015 Please note, that the impression should read significant right-sided hydroureteronephrosis without a discrete source of obstruction identified. Marked bladder distention with surrounding inflammatory change for which DECOMPRESSION followed by POST DECOMPRESSION RENAL ULTRASOUND is suggested. These findings were discussed with YEIMY Palacios at 1905 on 09/04/2024 Renal Ultrasound 09/07/24 09:26 IMPRESSION: 1. Persistent mild left-sided and severe right-sided hydronephrosis with the bladder distended, the with the right hydronephrosis to moderate severity following decompression of the bladder. 2. Diffuse bladder wall thickening which could be due to cystitis or chronic outlet obstruction. Labs Labs: Laboratory Results - last 24 hr 09/06/24 09/06/24 09/07/24 16:56 21:10 08:09 WBC RBC Hgb Hct MCV MCH MCHC RDW Plt Count MPV Immature Gran % (Auto) Neut % (Auto) Lymph % (Auto) [place] % (Auto) Eos % (Auto) Baso % (Auto) Lymph # (Auto) [place] # (Auto) Eos # (Auto) Baso # (Auto) Abs Immat Gran (auto) Absolute Neuts (auto) Absolute Nucleated RBC Nucleated RBC % Sodium Potassium Chloride Carbon Dioxide Anion Gap BUN Creatinine Estim Creat Clear Calc Estimated GFR Glucose POC Capillary Glucose 184 H 93 102 Calcium Total Bilirubin AST ALT Alkaline Phosphatase Total Protein Albumin 09/07/24 09/07/24 08:42 11:46 WBC 8.2 RBC 3.80 L Hgb 11.7 L Hct 36.6 L MCV 96.3 MCH 30.8 MCHC 32.0 RDW 13.8 Plt Count 219 MPV 12.7 H Immature Gran % (Auto) 0.5 Neut % (Auto) 56.2 Lymph % (Auto) 30.2 [place] % (Auto) 6.6 Eos % (Auto) 6.0 H Baso % (Auto) 0.5 Lymph # (Auto) 2.48 [place] # (Auto) 0.5 Eos # (Auto) 0.5 H Baso # (Auto) 0.0 Abs Immat Gran (auto) 0.04 H Absolute Neuts (auto) 4.6 Absolute Nucleated RBC 0.000 Nucleated RBC % 0.0 Sodium 144 Potassium 3.9 Chloride 109 H Carbon Dioxide 27 Anion Gap 8 BUN 11 D Creatinine 0.72 Estim Creat Clear Calc 83 Estimated GFR > 60 Glucose 112 H POC Capillary Glucose 105 Calcium 8.7 Total Bilirubin 0.5 AST 19 ALT 15 Alkaline Phosphatase 100 Total Protein 7.0 Albumin 3.3 L Quality VTE Prophylaxis VTE prophylaxis: pharmacologic ordered
[2024-09-07] MEDS: ATORVASTATIN 20 MG TABLET PO (17:30)
[2024-09-07 17:35] LABS: Glucose Point of Care 129 mg/dl (65-105)
[2024-09-07 20:00] VITALS: O2SAT 98
[2024-09-07 20:55] VITALS: BP 136/57; PULSE 86; RESP 20; TEMP 36.8; O2SAT 97
[2024-09-07] MEDS: ACETAMINOPHEN 325 MG TABLET 650 MG PO (21:19)
[2024-09-07] MEDS: HYOSCYAMINE SULFATE 0.125 MG TABLET PO (21:20)
[2024-09-07 22:09] LABS: Glucose Point of Care 124 mg/dl (65-105)
[2024-09-08 03:33] VITALS: BP 143/73; PULSE 74; RESP 20; TEMP 36.6; O2SAT 97
[2024-09-08] MEDS: LACTATED RINGERS 1,000 ML 125 ML IV CONT ×2 (04:56→13:17)
[2024-09-08 05:38] LABS: Basophils Absolute Auto 0.1 K/mm3 (0.0-0.1); Basophils Percent Auto 0.6 % (0.2-1.2); Eosinophils Absolute Auto 0.5 K/mm3 (0-0.3); Eosinophils Percent Auto 6.2 % (0-4.4); Hematocrit 35.9 % (37.0-47.0); Hemoglobin 11.5 g/dL (12.0-15.0); Immature Granulocyte Absolute 0.04 K/mm3 (0.00-0.031); Immature Granulocyte Percent A 0.5 % (0-0.5); Lymphocytes Absolute Auto 2.69 K/mm3 (0.9-3.2); Mean Corpuscular Hemoglobin 30.7 pg (26-34); Mean Corpuscular Volume 95.7 fl (80-100); Mean Platelet Volume 12.7 fl (7.4-10.4); Monocytes Absolute Auto 0.7 K/mm3 (0.1-0.6); Monocytes Percent Auto 8.2 % (2.6-8.5); Neutrophils Percent Auto 50.5 % (45.5-73.1); Platelet Count Result 227 k/mm3 (150-375); Red Blood Count 3.75 M/mm3 (4.2-5.4); Red Cell Distribution Width 13.6 % (11.5-14.5); White Blood Count 7.9 K/mm3 (4.5-10.0)
[2024-09-08 05:59] LABS: Alanine Aminotransferase 17 U/L (6-35); Alkaline Phosphatase 102 U/L (38-126); Anion Gap 9 mmol/L (4-12); Aspartate Amino Transferase 22 U/L (14-36); Bilirubin,Total 0.5 mg/dL (0.2-1.3); Blood Urea Nitrogen 14 mg/dL (7-17); Calcium 8.1 mg/dL (8.4-10.2); Carbon Dioxide 25 mmol/L (22-30); Chloride 107 mmol/L (98-107); Estimated CRCL calculation 82 ml/min; Estimated Glomerular Filt Rate > 60; Glucose 112 mg/dL (65-110); Potassium 3.9 mmol/L (3.4-5.0); Sodium 141 mmol/L (137-145)
[2024-09-08 08:17] LABS: Glucose Point of Care 115 mg/dl (65-105)
[2024-09-08] MEDS: ENOXAPARIN 40 MG/0.4 ML SYRINGE SUB-Q (08:47)
[2024-09-08] MEDS: LOSARTAN POTASSIUM 50 MG TABLET PO (08:47)
[2024-09-08] MEDS: SOLIFENACIN 5 MG TABLET PO (08:47)
--- NOTE | 2024-09-08 12:22 | P.PNIM_ITS ---
Progress Note: A&P Assessment and Plan (1) Acute renal failure: Qualifiers: Acute renal failure type: unspecified Qualified Code(s): N17.9 - Acute kidney failure, unspecified Code(s): N17.9 - Acute kidney failure, unspecified Status: Acute Assessment and Plan: 09/05/24: * Pt presented with Cr/BUN of 4.12/41. * Unknown baseline, but presumed normal range. * Found to have hydroureteronephrosis bilaterally without definite obstruction. * Symptomatic with UTI, failed outpt meds. * Nephrology consulted - appreciate their recommendations. * Trend labs with renal function * Post void residuals 09/06/24: * Resolving with renal function of 1.21/21 * Continue [place] catheter that was inserted by Urology. * Repeat renal US tomorrow morning. * Will need outpt urodynamic testing and follow up with Urology as outpt. * Pt will be discharged with catheter. 09/07/24: * Repeat renal US showing persistent mild left sided and severe right sided hydronephrosis w/distended bladder with moderate to severe right sided hydro despite decompression. * Renal function today is normal at 0.72/11 * Urology obtaining additional information with Lasix renal scan and will decide treatment over the weekend. 09/08: pt awaiting test on tuesday- lasix renal scan creat is nl today pt treated for uti with iv rocephin which was stopped as uc is negative pt is on iv fluids can dc as renal function is nl as per urology note continue with [place] catheter to allow for bladder decompression. Recommend renal ultrasound in 48 to 72 hours to assess for improvement/resolution of hydronephrosis. -patient will need outpatient evaluation with urodynamics to assess her bladder functionality. (2) Leukocytosis: Code(s): D72.829 - Elevated white blood cell count, unspecified Status: Resolved Assessment and Plan: 09/05/24: * Continue to trend. 17.0-->13.0. * Continue abx to treat infection. * Urine culture and blood cultures pending. 09/06/24: * Leukocytosis resolved today with WBC's at 9.4. * Urine culture negative for growth * BC still pending but NGTD 09/07/24: * Abx stopped. 09/08 can stop fluids awaiting renal us (3) Hydroureteronephrosis: Code(s): N13.30 - Unspecified hydronephrosis Status: Acute Assessment and Plan: 09/05/24: * Pt presented with Cr/BUN of 4.12/41. * Unknown baseline, but presumed normal range. * Found to have hydroureteronephrosis bilaterally without definite obstruction. * Symptomatic with UTI, failed outpt meds. * Urology consulted - appreciate their recommendations. * Trend labs with renal function * Post void residuals 09/06/24: * Renal US tomorrow to reassess degree of hydronephrosis since catheter has been placed. * Urology continuing to follow. 09/07/24: * Repeat renal US showing persistent mild left sided and severe right sided hydronephrosis w/distended bladder with moderate to severe right sided hydro despite decompression. * Renal function today is normal at 0.72/11 * Urology obtaining additional information with Lasix renal scan and will decide treatment over the weekend 09/08 pt with [place] and iv fluids awaiting renal scan (4) Cystitis: Code(s): N30.90 - Cystitis, unspecified without hematuria Status: Resolved Assessment and Plan: 09/05/24: * Continue to trend. 17.0-->13.0. * Continue abx to treat infection. * Urine culture and blood cultures pending. 09/06/24: * Leukocytosis resolved today with WBC's at 9.4. * Urine culture negative for growth * BC still pending but NGTD 09/08 uc and uc are negative dc iv abx (5) Diabetes mellitus: Code(s): E11.9 - Type 2 diabetes mellitus without complications Status: Acute Assessment and Plan: 09/05/24: * Hold metformin in setting of BRANDI. * Glucose checks AC and HS. * Check A1C. * Initiate adult insulin protocol if needed after checking glucose AC and HS. * Diabetic diet 09/06/24: * Continue current treatment. 09/07/24: * Continue current treatment. * Fasting glucose is 112. 09/08 sugars are stable (6) Hypertension: Code(s): I10 - Essential (primary) hypertension Status: Acute Assessment and Plan: 09/05/24: * Losartan 50 mg po daily. * Monitor and trend BPs 09/06/24: * Continue current treatment and monitor response. 09/07 bp is stable (7) Hyperlipidemia: Code(s): E78.5 - Hyperlipidemia, unspecified Status: Acute Assessment and Plan: 09/05/24: * Continue Lipitor 20 mg QHS. 09/06/24: * Continue current treatment. * Diabetic diet 09/08 pt is on dm diet Subjective Date/time seen: 09/08/24 12:22 Interval history: Pt seen and examined and is feeling better. Her renal function has completely recovered and she is not showing s/s of infection. Her repeat Renal US shows no improvement in appearance of the Hydronephrosis. I have spoken with urology who is going to obtain a Lasix renal scan, and then discuss the possibilities of treatment. Pt still waiting for lasix renal scan will not be until tuesday creat is 0.7 stable in hospital. Review of Systems Review of Systems: Pt bit anxious worried about test Exam Const: General: comfortable and no acute distress HENMT: Mouth: Yes moist mucous membranes Eyes: General: appearance normal, both eyes and all related structures Neck: Neck: supple and no JVD Resp: Effort & Inspection: normal respiratory effort Auscultation: clear to auscultation bilaterally Cardio: Rate: regular rate Rhythm: regular rhythm Heart sounds: no gallops, no murmurs and no rubs GI: Inspection: non-distended Other: Low, suprapubic tenderness to palpation. Skin: General skin exam: normal color, no rashes or lesions noted, No lesion and No rashes Lesions: no lesions noted Rashes: no rashes noted Wounds: no wounds Neuro: General: gait normal Speech: normal speech Motor exam (neuro): 5/5 motor strength present throughout Sensory Exam: normal sensation Extrem: General: normal to inspection and no edema Psych: Mental Status: mental status grossly normal Affect: normal affect Objective Data Vital Signs Vital Signs: Vital Signs - 24 hr 09/07/24 14:00 09/07/24 20:00 09/07/24 20:55 Temperature 36.7 C 36.8 C Pulse Rate 71 86 Respiratory Rate 16 20 Blood Pressure 140/57 L 136/57 L Pulse Oximetry 100 98 97 Oxygen Delivery Room Air 09/08/24 03:33 Temperature 36.6 C Pulse Rate 74 Respiratory Rate 20 Blood Pressure 143/73 H Pulse Oximetry 97 Oxygen Delivery Intake/Output Intake/Output: Intake & Output 09/05/24 09/06/24 09/07/24 09/08/24 23:59 23:59 23:59 23:59 Intake Total 3280.0 4479.6 3530 1630 Output Total 5200 4500 4750 850 Balance -1920.0 -20.4 -1220 780 Meds/Results Medications: Active Medications Generic Name Dose Route Start Last Admin Trade Name Freq PRN Reason Stop Dose Admin Acetaminophen 650 mg 09/04/24 21:24 09/07/24 21:19 Acetaminophen 325 Mg Tablet PO 650 mg Q4H PRN Administration Mild Pain (1-3) or Fever Atorvastatin Calcium 20 mg 09/05/24 18:00 09/07/24 17:30 Atorvastatin 20 Mg Tablet PO 20 mg QPM SAMAN Administration Enoxaparin Sodium 40 mg 09/06/24 13:40 09/08/24 08:47 Enoxaparin 40 Mg/0.4 Ml Syringe SUB-Q 40 mg DAILY SAMAN Administration Furosemide 40 mg 09/10/24 09:00 Furosemide Inj 40 Mg/4 Ml Vial IV PUSH 09/10/24 09:01 ONCE ONE Hyoscyamine 0.125 mg 09/06/24 14:32 09/07/24 21:20 Hyoscyamine Sulfate 0.125 Mg Tablet PO 0.125 mg Q4H PRN Administration Bladder Spasm Lactated Ringer's 1,000 mls @ 125 mls/hr 09/04/24 21:25 09/08/24 04:56 Lr - Lactated Ringers Iv IV CONT 125 mls/hr .Q8H SAMAN Administration Losartan Potassium 50 mg 09/05/24 09:00 09/08/24 08:47 Losartan Potassium 50 Mg Tablet PO 50 mg DAILY SAMAN Administration Ondansetron HCl 4 mg 09/04/24 21:24 Ondansetron Inj 4 Mg/2 Ml Vial IV PUSH Q4H PRN Nausea Solifenacin 5 mg 09/05/24 16:00 09/08/24 08:47 Solifenacin 5 Mg Tablet PO 5 mg QAM SAMAN Administration Radiology Results: ITS Impressions Abdomen/Pelvis CT 09/04/24 19:10 IMPRESSION: Significant right-sided hydroureteronephrosis without a discrete source of obstruction identified Marked bladder distention with surrounding inflammatory change for which compression and post decompression renal ultrasound is suggested. ADDENDUM: 09/04/242015 Please note, that the impression should read significant right-sided hydroureteronephrosis without a discrete source of obstruction identified. Marked bladder distention with surrounding inflammatory change for which DECOMPRESSION followed by POST DECOMPRESSION RENAL ULTRASOUND is suggested. These findings were discussed with YEIMY Palacios at 1905 on 09/04/2024 Renal Ultrasound 09/07/24 09:26 IMPRESSION: 1. Persistent mild left-sided and severe right-sided hydronephrosis with the bladder distended, the with the right hydronephrosis to moderate severity following decompression of the bladder. 2. Diffuse bladder wall thickening which could be due to cystitis or chronic outlet obstruction. Labs Labs: Laboratory Results - last 24 hr 09/07/24 09/07/24 09/08/24 16:49 21:00 05:21 WBC 7.9 RBC 3.75 L Hgb 11.5 L Hct 35.9 L MCV 95.7 MCH 30.7 MCHC 32.0 RDW 13.6 Plt Count 227 MPV 12.7 H Immature Gran % (Auto) 0.5 Neut % (Auto) 50.5 Lymph % (Auto) 34.0 [place] % (Auto) 8.2 Eos % (Auto) 6.2 H Baso % (Auto) 0.6 Lymph # (Auto) 2.69 [place] # (Auto) 0.7 H Eos # (Auto) 0.5 H Baso # (Auto) 0.1 Abs Immat Gran (auto) 0.04 H Absolute Neuts (auto) 4.0 Absolute Nucleated RBC 0.000 Nucleated RBC % 0.0 Sodium 141 Potassium 3.9 Chloride 107 Carbon Dioxide 25 Anion Gap 9 BUN 14 Creatinine 0.73 Estim Creat Clear Calc 82 Estimated GFR > 60 Glucose 112 H POC Capillary Glucose 129 H 124 H Calcium 8.1 L Total Bilirubin 0.5 AST 22 ALT 17 Alkaline Phosphatase 102 Total Protein 7.0 Albumin 3.0 L 09/08/24 08:07 WBC RBC Hgb Hct MCV MCH MCHC RDW Plt Count MPV Immature Gran % (Auto) Neut % (Auto) Lymph % (Auto) [place] % (Auto) Eos % (Auto) Baso % (Auto) Lymph # (Auto) [place] # (Auto) Eos # (Auto) Baso # (Auto) Abs Immat Gran (auto) Absolute Neuts (auto) Absolute Nucleated RBC Nucleated RBC % Sodium Potassium Chloride Carbon Dioxide Anion Gap BUN Creatinine Estim Creat Clear Calc Estimated GFR Glucose POC Capillary Glucose 115 H Calcium Total Bilirubin AST ALT Alkaline Phosphatase Total Protein Albumin
[2024-09-08 12:24] LABS: Glucose Point of Care 196 mg/dl (65-105)
[2024-09-08 14:00] VITALS: BP 149/75; PULSE 81; RESP 16; TEMP 36.4; O2SAT 100
[2024-09-08] MEDS: ATORVASTATIN 20 MG TABLET PO (17:12)
[2024-09-08 17:17] LABS: Glucose Point of Care 94 mg/dl (65-105)
[2024-09-08 20:00] VITALS: O2SAT 98
[2024-09-08] MEDS: ACETAMINOPHEN 325 MG TABLET 650 MG PO (21:24)
[2024-09-08] MEDS: HYOSCYAMINE SULFATE 0.125 MG TABLET PO (21:24)
[2024-09-08 21:55] LABS: Glucose Point of Care 130 mg/dl (65-105)
[2024-09-08 22:00] VITALS: BP 129/56; PULSE 88; RESP 20; TEMP 36.6; O2SAT 98
[2024-09-09 05:26] LABS: Basophils Percent Auto 0.4 % (0.2-1.2); Eosinophils Absolute Auto 0.5 K/mm3 (0-0.3); Eosinophils Percent Auto 6.1 % (0-4.4); Hematocrit 34.2 % (37.0-47.0); Hemoglobin 11.1 g/dL (12.0-15.0); Immature Granulocyte Absolute 0.03 K/mm3 (0.00-0.031); Immature Granulocyte Percent A 0.4 % (0-0.5); Lymphocytes Absolute Auto 2.81 K/mm3 (0.9-3.2); Lymphocytes Percent Auto 35.4 % (18.3-44.2); Mean Corpuscular HGB Conc 32.5 g/dl (32-36); Mean Corpuscular Hemoglobin 31.2 pg (26-34); Mean Corpuscular Volume 96.1 fl (80-100); Mean Platelet Volume 12.5 fl (7.4-10.4); Monocytes Absolute Auto 0.6 K/mm3 (0.1-0.6); Monocytes Percent Auto 8.1 % (2.6-8.5); Neutrophils Absolute Auto 3.9 K/mm3 (1.3-6.7); Neutrophils Percent Auto 49.6 % (45.5-73.1); Platelet Count Result 239 k/mm3 (150-375); Red Blood Count 3.56 M/mm3 (4.2-5.4); Red Cell Distribution Width 13.6 % (11.5-14.5); White Blood Count 7.9 K/mm3 (4.5-10.0)
[2024-09-09 05:38] LABS: Alanine Aminotransferase 17 U/L (6-35); Albumin Level 3.1 g/dL (3.5-5.1); Alkaline Phosphatase 100 U/L (38-126); Anion Gap 9 mmol/L (4-12); Aspartate Amino Transferase 21 U/L (14-36); Bilirubin,Total 0.4 mg/dL (0.2-1.3); Blood Urea Nitrogen 11 mg/dL (7-17); Calcium 8.2 mg/dL (8.4-10.2); Carbon Dioxide 27 mmol/L (22-30); Chloride 107 mmol/L (98-107); Estimated CRCL calculation 90 ml/min; Estimated Glomerular Filt Rate > 60; Glucose 110 mg/dL (65-110); Potassium 3.6 mmol/L (3.4-5.0); Sodium 143 mmol/L (137-145)
[2024-09-09 06:00] VITALS: BP 135/54; PULSE 74; RESP 20; TEMP 36.7; O2SAT 99
[2024-09-09 08:28] LABS: Glucose Point of Care 120 mg/dl (65-105)
[2024-09-09] MEDS: ENOXAPARIN 40 MG/0.4 ML SYRINGE SUB-Q (09:22)
[2024-09-09] MEDS: SOLIFENACIN 5 MG TABLET PO (09:22)
[2024-09-09] MEDS: LOSARTAN POTASSIUM 50 MG TABLET PO (09:22)
--- NOTE | 2024-09-09 10:16 | P.PNIM_ITS ---
Progress Note: A&P Assessment and Plan (1) Acute renal failure: Qualifiers: Acute renal failure type: unspecified Qualified Code(s): N17.9 - Acute kidney failure, unspecified Code(s): N17.9 - Acute kidney failure, unspecified Status: Acute Assessment and Plan: 09/05/24: * Pt presented with Cr/BUN of 4.12/41. * Unknown baseline, but presumed normal range. * Found to have hydroureteronephrosis bilaterally without definite obstruction. * Symptomatic with UTI, failed outpt meds. * Nephrology consulted - appreciate their recommendations. * Trend labs with renal function * Post void residuals 09/06/24: * Resolving with renal function of 1.21/21 * Continue [place] catheter that was inserted by Urology. * Repeat renal US tomorrow morning. * Will need outpt urodynamic testing and follow up with Urology as outpt. * Pt will be discharged with catheter. 09/07/24: * Repeat renal US showing persistent mild left sided and severe right sided hydronephrosis w/distended bladder with moderate to severe right sided hydro despite decompression. * Renal function today is normal at 0.72/11 * Urology obtaining additional information with Lasix renal scan and will decide treatment over the weekend. 09/08: pt awaiting test on tuesday- lasix renal scan creat is nl today pt treated for uti with iv rocephin which was stopped as uc is negative pt is on iv fluids can dc as renal function is nl as per urology note continue with [place] catheter to allow for bladder decompression. Recommend renal ultrasound in 48 to 72 hours to assess for improvement/resolution of hydronephrosis. -patient will need outpatient evaluation with urodynamics to assess her bladder functionality. 09/09: continue IVF at 50cc per hour UO is good urine looks yellow in the [place]in[place] bag lasix renal scan scheduled for efren requested by urology prior to DC (2) Leukocytosis: Code(s): D72.829 - Elevated white blood cell count, unspecified Status: Resolved Assessment and Plan: 09/05/24: * Continue to trend. 17.0-->13.0. * Continue abx to treat infection. * Urine culture and blood cultures pending. 09/06/24: * Leukocytosis resolved today with WBC's at 9.4. * Urine culture negative for growth * BC still pending but NGTD 09/07/24: * Abx stopped. 09/08 Can continue fluids at lower rate, awaiting renal us 09/09: CAn continue fluids at lower rate, awaiting renal us lasix ordered for test efren (3) Hydroureteronephrosis: Code(s): N13.30 - Unspecified hydronephrosis Status: Acute Assessment and Plan: 09/05/24: * Pt presented with Cr/BUN of 4.12/41. * Unknown baseline, but presumed normal range. * Found to have hydroureteronephrosis bilaterally without definite obstruction. * Symptomatic with UTI, failed outpt meds. * Urology consulted - appreciate their recommendations. * Trend labs with renal function * Post void residuals 09/06/24: * Renal US tomorrow to reassess degree of hydronephrosis since catheter has been placed. * Urology continuing to follow. 09/07/24: * Repeat renal US showing persistent mild left sided and severe right sided hydronephrosis w/distended bladder with moderate to severe right sided hydro despite decompression. * Renal function today is normal at 0.72/11 * Urology obtaining additional information with Lasix renal scan and will decide treatment over the weekend 09/08 pt with [place] and iv fluids awaiting renal scan 09/09 Pt awaiting renal scan efren (4) Cystitis: Code(s): N30.90 - Cystitis, unspecified without hematuria Status: Resolved Assessment and Plan: 09/05/24: * Continue to trend. 17.0-->13.0. * Continue abx to treat infection. * Urine culture and blood cultures pending. 09/06/24: * Leukocytosis resolved today with WBC's at 9.4. * Urine culture negative for growth * BC still pending but NGTD 09/08 uc and uc are negative dc iv abx 09/09 Pt is on iv fluids receiving iv lasix UO is good in [place] bag (5) Diabetes mellitus: Code(s): E11.9 - Type 2 diabetes mellitus without complications Status: Acute Assessment and Plan: 09/05/24: * Hold metformin in setting of BRANDI. * Glucose checks AC and HS. * Check A1C. * Initiate adult insulin protocol if needed after checking glucose AC and HS. * Diabetic diet 09/06/24: * Continue current treatment. 09/07/24: * Continue current treatment. * Fasting glucose is 112. 09/08 sugars are stable 09/09 sugars are stable (6) Hypertension: Code(s): I10 - Essential (primary) hypertension Status: Acute Assessment and Plan: 09/05/24: * Losartan 50 mg po daily. * Monitor and trend BPs 09/06/24: * Continue current treatment and monitor response. 09/07 bp is stable 09/09 Bp is stable (7) Hyperlipidemia: Code(s): E78.5 - Hyperlipidemia, unspecified Status: Acute Assessment and Plan: 09/05/24: * Continue Lipitor 20 mg QHS. 09/06/24: * Continue current treatment. * Diabetic diet 09/08 pt is on dm diet 09/09 continue DM diet Subjective Date/time seen: 09/09/24 10:16 Interval history: Pt seen and examined and is feeling better. Her renal function has completely recovered and she is not showing s/s of infection. Her repeat Renal US shows no improvement in appearance of the Hydronephrosis. I have spoken with urology who is going to obtain a Lasix renal scan, and then discuss the possibilities of treatment. Pt still waiting for lasix renal scan will not be until tuesday creat is 0.7 stable in hospital. Plan to continue fluid hydration over the weekend scan scheduled for tomorrow Review of Systems Review of Systems: No specific complaints Pt feels better Less swollen all over Exam Const: General: comfortable and no acute distress HENMT: Mouth: Yes moist mucous membranes Eyes: General: appearance normal, both eyes and all related structures Neck: Neck: supple and no JVD Resp: Effort & Inspection: normal respiratory effort Auscultation: clear to auscultation bilaterally Cardio: Rate: regular rate Rhythm: regular rhythm Heart sounds: no gallops, no murmurs and no rubs GI: Inspection: non-distended Other: Low, suprapubic tenderness to palpation. Skin: General skin exam: normal color, no rashes or lesions noted, No lesion and No rashes Lesions: no lesions noted Rashes: no rashes noted Wounds: no wounds Neuro: General: gait normal Speech: normal speech Motor exam (neuro): 5/5 motor strength present throughout Sensory Exam: normal sensation Extrem: General: normal to inspection and no edema Psych: Mental Status: mental status grossly normal Affect: normal affect Objective Data Vital Signs Vital Signs: Vital Signs - 24 hr 09/08/24 14:00 09/08/24 20:00 09/08/24 22:00 Temperature 36.4 C L 36.6 C Pulse Rate 81 88 Respiratory Rate 16 20 Blood Pressure 149/75 H 129/56 L Pulse Oximetry 100 98 98 Oxygen Delivery Room Air 09/09/24 06:00 Temperature 36.7 C Pulse Rate 74 Respiratory Rate 20 Blood Pressure 135/54 L Pulse Oximetry 99 Oxygen Delivery Intake/Output Intake/Output: Intake & Output 09/06/24 09/07/24 09/08/24 09/09/24 23:59 23:59 23:59 23:59 Intake Total 4479.6 3530 3380 440 Output Total 4500 4750 3125 1300 Balance -20.4 -1220 255 -860 Meds/Results Medications: Active Medications Generic Name Dose Route Start Last Admin Trade Name Freq PRN Reason Stop Dose Admin Acetaminophen 650 mg 09/04/24 21:24 09/08/24 21:24 Acetaminophen 325 Mg Tablet PO 650 mg Q4H PRN Administration Mild Pain (1-3) or Fever Atorvastatin Calcium 20 mg 09/05/24 18:00 09/08/24 17:12 Atorvastatin 20 Mg Tablet PO 20 mg QPM SAMAN Administration Enoxaparin Sodium 40 mg 09/06/24 13:40 09/09/24 09:22 Enoxaparin 40 Mg/0.4 Ml Syringe SUB-Q 40 mg DAILY SAMAN Administration Furosemide 40 mg 09/10/24 09:00 Furosemide Inj 40 Mg/4 Ml Vial IV PUSH 09/10/24 09:01 ONCE ONE Hyoscyamine 0.125 mg 09/06/24 14:32 09/08/24 21:24 Hyoscyamine Sulfate 0.125 Mg Tablet PO 0.125 mg Q4H PRN Administration Bladder Spasm Lactated Ringer's 1,000 mls @ 50 mls/hr 09/04/24 21:25 09/08/24 13:17 Lr - Lactated Ringers Iv IV CONT 50 mls/hr .Q20H SAMAN Infusion Losartan Potassium 50 mg 09/05/24 09:00 09/09/24 09:22 Losartan Potassium 50 Mg Tablet PO 50 mg DAILY SAMAN Administration Ondansetron HCl 4 mg 09/04/24 21:24 Ondansetron Inj 4 Mg/2 Ml Vial IV PUSH Q4H PRN Nausea Solifenacin 5 mg 09/05/24 16:00 09/09/24 09:22 Solifenacin 5 Mg Tablet PO 5 mg QAM SAMAN Administration Radiology Results: ITS Impressions Abdomen/Pelvis CT 09/04/24 19:10 IMPRESSION: Significant right-sided hydroureteronephrosis without a discrete source of ob struction identified Marked bladder distention with surrounding inflammatory change for which compression and post decompression renal ultrasound is suggested. ADDENDUM: 09/04/242015 Please note, that the impression should read significant right-sided hydroureteronephrosis without a discrete source of obstruction identified. Marked bladder distention with surrounding inflammatory change for which DECOMPRESSION followed by POST DECOMPRESSION RENAL ULTRASOUND is suggested. These findings were discussed with YEIMY Palacios at 1905 on 09/04/2024 Renal Ultrasound 09/07/24 09:26 IMPRESSION: 1. Persistent mild left-sided and severe right-sided hydronephrosis with the bladder distended, the with the right hydronephrosis to moderate severity following decompression of the bladder. 2. Diffuse bladder wall thickening which could be due to cystitis or chronic outlet obstruction. Labs Labs: Laboratory Results - last 24 hr 09/08/24 09/08/24 09/08/24 12:17 17:10 20:25 WBC RBC Hgb Hct MCV MCH MCHC RDW Plt Count MPV Immature Gran % (Auto) Neut % (Auto) Lymph % (Auto) [place] % (Auto) Eos % (Auto) Baso % (Auto) Lymph # (Auto) [place] # (Auto) Eos # (Auto) Baso # (Auto) Abs Immat Gran (auto) Absolute Neuts (auto) Absolute Nucleated RBC Nucleated RBC % Sodium Potassium Chloride Carbon Dioxide Anion Gap BUN Creatinine Estim Creat Clear Calc Estimated GFR Glucose POC Capillary Glucose 196 H 94 130 H Calcium Total Bilirubin AST ALT Alkaline Phosphatase Total Protein Albumin 09/09/24 09/09/24 04:57 08:13 WBC 7.9 RBC 3.56 L Hgb 11.1 L Hct 34.2 L MCV 96.1 MCH 31.2 MCHC 32.5 RDW 13.6 Plt Count 239 MPV 12.5 H Immature Gran % (Auto) 0.4 Neut % (Auto) 49.6 Lymph % (Auto) 35.4 [place] % (Auto) 8.1 Eos % (Auto) 6.1 H Baso % (Auto) 0.4 Lymph # (Auto) 2.81 [place] # (Auto) 0.6 Eos # (Auto) 0.5 H Baso # (Auto) 0.0 Abs Immat Gran (auto) 0.03 Absolute Neuts (auto) 3.9 Absolute Nucleated RBC 0.000 Nucleated RBC % 0.0 Sodium 143 Potassium 3.6 Chloride 107 Carbon Dioxide 27 Anion Gap 9 BUN 11 Creatinine 0.66 L Estim Creat Clear Calc 90 Estimated GFR > 60 Glucose 110 POC Capillary Glucose 120 H Calcium 8.2 L Total Bilirubin 0.4 AST 21 ALT 17 Alkaline Phosphatase 100 Total Protein 6.0 L Albumin 3.1 L
[2024-09-09] MEDS: LACTATED RINGERS 1,000 ML 50 ML IV CONT (10:30)
[2024-09-09 12:17] LABS: Glucose Point of Care 160 mg/dl (65-105)
[2024-09-09 14:00] VITALS: BP 144/61; PULSE 83; RESP 16; TEMP 36.4; O2SAT 100
[2024-09-09] MEDS: ATORVASTATIN 20 MG TABLET PO (16:59)
[2024-09-09 17:22] LABS: Glucose Point of Care 110 mg/dl (65-105)
[2024-09-09 22:00] VITALS: BP 136/59; PULSE 77; RESP 20; TEMP 36.6; O2SAT 100
[2024-09-09 22:52] LABS: Glucose Point of Care 139 mg/dl (65-105)
[2024-09-10 05:57] LABS: Basophils Percent Auto 0.5 % (0.2-1.2); Eosinophils Absolute Auto 0.5 K/mm3 (0-0.3); Eosinophils Percent Auto 6.5 % (0-4.4); Hematocrit 34.6 % (37.0-47.0); Hemoglobin 11.2 g/dL (12.0-15.0); Immature Granulocyte Absolute 0.03 K/mm3 (0.00-0.031); Immature Granulocyte Percent A 0.4 % (0-0.5); Lymphocytes Absolute Auto 2.27 K/mm3 (0.9-3.2); Mean Corpuscular HGB Conc 32.4 g/dl (32-36); Mean Corpuscular Hemoglobin 30.8 pg (26-34); Mean Corpuscular Volume 95.1 fl (80-100); Mean Platelet Volume 12.1 fl (7.4-10.4); Monocytes Absolute Auto 0.6 K/mm3 (0.1-0.6); Monocytes Percent Auto 8.2 % (2.6-8.5); Neutrophils Absolute Auto 4.1 K/mm3 (1.3-6.7); Neutrophils Percent Auto 54.4 % (45.5-73.1); Platelet Count Result 248 k/mm3 (150-375); Red Blood Count 3.64 M/mm3 (4.2-5.4); Red Cell Distribution Width 13.5 % (11.5-14.5); White Blood Count 7.6 K/mm3 (4.5-10.0)
[2024-09-10 06:00] VITALS: BP 161/81; PULSE 86; RESP 20; TEMP 36.3; O2SAT 100
[2024-09-10 06:08] LABS: Alanine Aminotransferase 21 U/L (6-35); Albumin Level 3.2 g/dL (3.5-5.1); Alkaline Phosphatase 104 U/L (38-126); Anion Gap 9 mmol/L (4-12); Aspartate Amino Transferase 23 U/L (14-36); Bilirubin,Total 0.5 mg/dL (0.2-1.3); Blood Urea Nitrogen 9 mg/dL (7-17); Calcium 8.8 mg/dL (8.4-10.2); Carbon Dioxide 26 mmol/L (22-30); Chloride 106 mmol/L (98-107); Estimated CRCL calculation 92 ml/min; Estimated Glomerular Filt Rate > 60; Glucose 116 mg/dL (65-110); Potassium 3.8 mmol/L (3.4-5.0); Sodium 141 mmol/L (137-145)
--- NOTE | 2024-09-10 07:30 | P.PNIM_ITS ---
Progress Note: A&P Assessment and Plan (1) Acute renal failure: Qualifiers: Acute renal failure type: unspecified Qualified Code(s): N17.9 - Acute kidney failure, unspecified Code(s): N17.9 - Acute kidney failure, unspecified Status: Acute Assessment and Plan: 09/05/24: * Pt presented with Cr/BUN of 4.12/41. * Unknown baseline, but presumed normal range. * Found to have hydroureteronephrosis bilaterally without definite obstruction. * Symptomatic with UTI, failed outpt meds. * Nephrology consulted - appreciate their recommendations. * Trend labs with renal function * Post void residuals 09/06/24: * Resolving with renal function of 1.21/21 * Continue [place] catheter that was inserted by Urology. * Repeat renal US tomorrow morning. * Will need outpt urodynamic testing and follow up with Urology as outpt. * Pt will be discharged with catheter. 09/07/24: * Repeat renal US showing persistent mild left sided and severe right sided hydronephrosis w/distended bladder with moderate to severe right sided hydro despite decompression. * Renal function today is normal at 0.72/11 * Urology obtaining additional information with Lasix renal scan and will decide treatment over the weekend. 09/08: pt awaiting test on tuesday- lasix renal scan creat is nl today pt treated for uti with iv rocephin which was stopped as uc is negative pt is on iv fluids can dc as renal function is nl as per urology note continue with [place] catheter to allow for bladder decompression. Recommend renal ultrasound in 48 to 72 hours to assess for improvement/resolution of hydronephrosis. -patient will need outpatient evaluation with urodynamics to assess her bladder functionality. 09/09: continue IVF at 50cc per hour UO is good urine looks yellow in the [place] bag lasix renal scan scheduled for efren requested by urology prior to DC 09/10: Stop IVF, tolerating orals yesterday and stable renal fx. Lasix renal scan this afternoon is ordered. - Pending urology review of scan and arranging further outpatient care - likely discharge tomorrow. (2) Leukocytosis: Code(s): D72.829 - Elevated white blood cell count, unspecified Status: Resolved Assessment and Plan: 09/05/24: * Continue to trend. 17.0-->13.0. * Continue abx to treat infection. * Urine culture and blood cultures pending. 09/06/24: * Leukocytosis resolved today with WBC's at 9.4. * Urine culture negative for growth * BC still pending but NGTD 09/07/24: * Abx stopped. 09/08 Can continue fluids at lower rate, awaiting renal us 09/09: CAn continue fluids at lower rate, awaiting renal us lasix ordered for test efren 09/10: Resolved leukocytosis. (3) Hydroureteronephrosis: Code(s): N13.30 - Unspecified hydronephrosis Status: Acute Assessment and Plan: 09/05/24: * Pt presented with Cr/BUN of 4.12/41. * Unknown baseline, but presumed normal range. * Found to have hydroureteronephrosis bilaterally without definite obstruction. * Symptomatic with UTI, failed outpt meds. * Urology consulted - appreciate their recommendations. * Trend labs with renal function * Post void residuals 09/06/24: * Renal US tomorrow to reassess degree of hydronephrosis since catheter has been placed. * Urology continuing to follow. 09/07/24: * Repeat renal US showing persistent mild left sided and severe right sided hydronephrosis w/distended bladder with moderate to severe right sided hydro despite decompression. * Renal function today is normal at 0.72/11 * Urology obtaining additional information with Lasix renal scan and will decide treatment over the weekend 09/08 pt with [place] and iv fluids awaiting renal scan 09/09 Pt awaiting renal scan efren 09/10: Renal scan and further management per urology. Keep trinidad on discharge unless urology directs otherwise. (4) Cystitis: Code(s): N30.90 - Cystitis, unspecified without hematuria Status: Resolved Assessment and Plan: 09/05/24: * Continue to trend. 17.0-->13.0. * Continue abx to treat infection. * Urine culture and blood cultures pending. 09/06/24: * Leukocytosis resolved today with WBC's at 9.4. * Urine culture negative for growth * BC still pending but NGTD 09/08 uc and uc are negative dc iv abx 09/09 Pt is on iv fluids receiving iv lasix UO is good in [place] bag 09/10: Cx negative. No abx at this time. (5) Diabetes mellitus: Code(s): E11.9 - Type 2 diabetes mellitus without complications Status: Acute Assessment and Plan: 09/05/24: * Hold metformin in setting of BRANDI. * Glucose checks AC and HS. * Check A1C. * Initiate adult insulin protocol if needed after checking glucose AC and HS. * Diabetic diet 09/06/24: * Continue current treatment. 09/07/24: * Continue current treatment. * Fasting glucose is 112. 09/08 sugars are stable 09/09 sugars are stable 09/10: Stable with fbg 113 this am. (6) Hypertension: Code(s): I10 - Essential (primary) hypertension Status: Acute Assessment and Plan: 09/05/24: * Losartan 50 mg po daily. * Monitor and trend BPs 09/06/24: * Continue current treatment and monitor response. 09/07 bp is stable 09/09 Bp is stable 09/10: Generally 120s-140 sbp, cont. current. DC ivf. Lasix this am for scan likely improve pressures. (7) Hyperlipidemia: Code(s): E78.5 - Hyperlipidemia, unspecified Status: Acute Assessment and Plan: 09/05/24: * Continue Lipitor 20 mg QHS. 09/06/24: * Continue current treatment. * Diabetic diet 09/08 pt is on dm diet 09/09 continue DM diet 09/10: Cont. current diet and management. Plan Farzaneh Ng is a 59 year old female with hyroureteronoephrosis presenting with acute urinary obstruction and renal failure with question of UTI with cx negative for infection. Plan for lasix renal scan and further urology input prior to discharge which would be expected within the next 24 hours. Will need to keep trin[place] per urology rec on discharge. Time Spent With Patient Time with patient: 25 - 35 minutes Subjective Date/time seen: 09/10/24 07:30 Interval history: Farzaneh states her abdominal and back pain resolved with placement of urinary catheter and has remained stable improved since. Review of Systems Review of Systems: All systems reviewed & are unremarkable except as noted in HPI and below Exam Narrative: GENERAL APPEARANCE: Appears to be in no acute distress. HEAD: normocephalic atraumatic EYES: EOMI Vision grossly intact. ENT: Hearing grossly intact, no nasal discharge NECK: Neck supple, trachea midline. CARDIAC: Normal S1/S2. Rhythm is regular. No murmurs, rubs, or gallops. No cyanosis or pallor. Extremities are warm and well perfused. LUNGS: Clear to auscultation without rales, rhonchi, wheezing or diminished breath sounds. Respirations even and unlabored. ABDOMEN: BS positive x 4 quadrants. Soft, nondistended, nontender. No guarding or rebound. MSK: No joint tenderness/swelling, fair strength in all extremities. PERIPHERAL VASCULAR: Peripheral pulses palpable. Normal perfusion, cap refill <2 seconds. No edema. NEURO: Follows commands. No focal deficits. SKIN: [place] without lesions or eruptions. PSYCH: Stable, no paranoia or delusional thinking. Objective Data Vital Signs Vital Signs: Vital Signs - 24 hr 09/09/24 08:00 09/09/24 14:00 09/09/24 20:00 Temperature 97.6 F Pulse Rate 83 Respiratory Rate 16 Blood Pressure 144/61 H Pulse Oximetry 100 Oxygen Delivery Room Air Room Air 09/09/24 22:00 09/10/24 06:00 Temperature 97.9 F 97.4 F L Pulse Rate 77 86 Respiratory Rate 20 20 Blood Pressure 136/59 L 161/81 H Pulse Oximetry 100 100 Oxygen Delivery Intake/Output Intake/Output: Intake & Output 09/07/24 09/08/24 09/09/24 09/10/24 23:59 23:59 23:59 23:59 Intake Total 3530 3380 2160 350 Output Total 4750 3125 1300 2000 Balance -1220 255 860 -1650 Meds/Results Medications: Active Medications Generic Name Dose Route Start Last Admin Trade Name Freq PRN Reason Stop Dose Admin Acetaminophen 650 mg 09/04/24 21:24 09/08/24 21:24 Acetaminophen 325 Mg Tablet PO 650 mg Q4H PRN Administration Mild Pain (1-3) or Fever Atorvastatin Calcium 20 mg 09/05/24 18:00 09/09/24 16:59 Atorvastatin 20 Mg Tablet PO 20 mg QPM SAMAN Administration Enoxaparin Sodium 40 mg 09/06/24 13:40 09/09/24 09:22 Enoxaparin 40 Mg/0.4 Ml Syringe SUB-Q 40 mg DAILY SAMAN Administration Furosemide 40 mg 09/10/24 09:00 Furosemide Inj 40 Mg/4 Ml Vial IV PUSH 09/10/24 09:01 ONCE ONE Hyoscyamine 0.125 mg 09/06/24 14:32 09/08/24 21:24 Hyoscyamine Sulfate 0.125 Mg Tablet PO 0.125 mg Q4H PRN Administration Bladder Spasm Lactated Ringer's 1,000 mls @ 50 mls/hr 09/04/24 21:25 09/09/24 10:30 Lr - Lactated Ringers Iv IV CONT 50 mls/hr .Q20H SAMAN Administration Losartan Potassium 50 mg 09/05/24 09:00 09/09/24 09:22 Losartan Potassium 50 Mg Tablet PO 50 mg DAILY SAMAN Administration Ondansetron HCl 4 mg 09/04/24 21:24 Ondansetron Inj 4 Mg/2 Ml Vial IV PUSH Q4H PRN Nausea Solifenacin 5 mg 09/05/24 16:00 09/09/24 09:22 Solifenacin 5 Mg Tablet PO 5 mg QAM SAMAN Administration Radiology Results: ITS Impressions Abdomen/Pelvis CT 09/04/24 19:10 IMPRESSION: Significant right-sided hydroureteronephrosis without a discrete source of obstruction identified Marked bladder distention with surrounding inflammatory change for which compression and post decompression renal ultrasound is suggested. ADDENDUM: 09/04/242015 Please note, that the impression should read significant right-sided hydroureteronephrosis without a discrete source of obstruction identified. Marked bladder distention with surrounding inflammatory change for which DECOMPRESSION followed by POST DECOMPRESSION RENAL ULTRASOUND is suggested. These findings were discussed with YEIMY Palacios at 1905 on 09/04/2024 Renal Ultrasound 09/07/24 09:26 IMPRESSION: 1. Persistent mild left-sided and severe right-sided hydronephrosis with the bladder distended, the with the right hydronephrosis to moderate severity following decompression of the bladder. 2. Diffuse bladder wall thickening which could be due to cystitis or chronic outlet obstruction. Labs Labs: Laboratory Results - last 24 hr 09/09/24 09/09/24 09/09/24 08:13 12:02 17:07 WBC RBC Hgb Hct MCV MCH MCHC RDW Plt Count MPV Immature Gran % (Auto) Neut % (Auto) Lymph % (Auto) [place] % (Auto) Eos % (Auto) Baso % (Auto) Lymph # (Auto) [place] # (Auto) Eos # (Auto) Baso # (Auto) Abs Immat Gran (auto) Absolute Neuts (auto) Absolute Nucleated RBC Nucleated RBC % Sodium Potassium Chloride Carbon Dioxide Anion Gap BUN Creatinine Estim Creat Clear Calc Estimated GFR Glucose POC Capillary Glucose 120 H 160 H 110 H Calcium Total Bilirubin AST ALT Alkaline Phosphatase Total Protein Albumin 09/09/24 09/10/24 21:01 05:34 WBC 7.6 RBC 3.64 L Hgb 11.2 L Hct 34.6 L MCV 95.1 MCH 30.8 MCHC 32.4 RDW 13.5 Plt Count 248 MPV 12.1 H Immature Gran % (Auto) 0.4 Neut % (Auto) 54.4 Lymph % (Auto) 30.0 [place] % (Auto) 8.2 Eos % (Auto) 6.5 H Baso % (Auto) 0.5 Lymph # (Auto) 2.27 [place] # (Auto) 0.6 Eos # (Auto) 0.5 H Baso # (Auto) 0.0 Abs Immat Gran (auto) 0.03 Absolute Neuts (auto) 4.1 Absolute Nucleated RBC 0.000 Nucleated RBC % 0.0 Sodium 141 Potassium 3.8 Chloride 106 Carbon Dioxide 26 Anion Gap 9 BUN 9 Creatinine 0.65 L Estim Creat Clear Calc 92 Estimated GFR > 60 Glucose 116 H POC Capillary Glucose 139 H Calcium 8.8 Total Bilirubin 0.5 AST 23 ALT 21 Alkaline Phosphatase 104 Total Protein 7.0 Albumin 3.2 L Quality VTE Prophylaxis VTE prophylaxis: pharmacologic ordered Hospitalist MIPS Advance Care Plan I have confirmed that the patient's Advanced Care Plan is present, code status is documented, or surrogate decision maker is listed in patient medical record.: Yes Medication Reconciliation I have utilized all available resources to obtain, update and review the patients current medications (includes all prescriptions, OTC, herbals, cannabis, and nutritional supplements).: Yes
[2024-09-10 08:20] LABS: Glucose Point of Care 113 mg/dl (65-105)
[2024-09-10] MEDS: LOSARTAN POTASSIUM 50 MG TABLET PO (08:57)
[2024-09-10] MEDS: SOLIFENACIN 5 MG TABLET PO (08:57)
[2024-09-10] MEDS: ENOXAPARIN 40 MG/0.4 ML SYRINGE SUB-Q (08:59)
[2024-09-10 12:13] LABS: Glucose Point of Care 119 mg/dl (65-105)
[2024-09-10 14:09] VITALS: BP 141/79; PULSE 81; RESP 17; TEMP 36.9; O2SAT 98
--- NOTE | 2024-09-10 15:34 | PM.DS ---
DS: Admitting Diagnosis Discharge Date 10/08/24 Admitting Diagnosis BRANDI secondary to acute urinary retention, right hydronephrosis DS: Discharge Diagnosis Discharge Diagnosis (1) Hydroureteronephrosis: Code(s): N13.30 - Unspecified hydronephrosis Status: Acute Assessment and Plan: - Renal scan complete, urology agreeable to DC and o/p f/u. (2) Acute renal failure: Qualifiers: Acute renal failure type: unspecified Qualified Code(s): N17.9 - Acute kidney failure, unspecified Code(s): N17.9 - Acute kidney failure, unspecified Status: Acute Assessment and Plan: - Resovled with normal renal function s/p catheterization and fluids. (3) Acute urinary retention: Code(s): R33.8 - Other retention of urine Status: Acute Assessment and Plan: - Trinidad catheter to stay in place without o/p voiding trial to be arranged. (4) Cystitis: Code(s): N30.90 - Cystitis, unspecified without hematuria Status: Resolved Assessment and Plan: - No specific pathogens recovered on cx, no abx to continue. Plan - Discharge with o/p urology f/u. DS: Summary Hospital Course Reason for hospitalization: UTI symptoms, abdominal pain, back pain Hospital Course: Carmine Ng presented from home with acute abd. and back pain, found to have acute urinary retention and right sided hydronephrosis. Urology was consulted and trinidad was placed. Renal function with initial creatinine >4 now resolved to <1. Tolerating oral diet well and no further renal insult noted on renal trends. Lasix scan today and urology plans to f/u outpatient to continue management of the AUR and right hydronephrosis. Trinidad to stay in place until directed otherwise. On day of discharge patient denies any pain and states feeling well. Very adamant that would prefer to return home after scan. This is certainly reasonable provided o/p f/u can be obtained. Nursing staff has spoken with urology who are aware and will continue to follow. VS and exam stable. Status at Discharge Functional status at discharge: independent ambulation Overall status at discharge: patient is back to baseline Time Spent with Patient Time attestation: Total time spent providing and/or coordinating discharge services: Time spent: Greater than 30 minutes Exam Narrative: GENERAL APPEARANCE: Appears to be in no acute distress. HEAD: normocephalic atraumatic EYES: EOMI Vision grossly intact. ENT: Hearing grossly intact, no nasal discharge NECK: Neck supple, trachea midline. CARDIAC: Normal S1/S2. Rhythm is regular. No murmurs, rubs, or gallops. No cyanosis or pallor. Extremities are warm and well perfused. LUNGS: Clear to auscultation without rales, rhonchi, wheezing or diminished breath sounds. Respirations even and unlabored. ABDOMEN: BS positive x 4 quadrants. Soft, nondistended, nontender. No guarding or rebound. MSK: No joint tenderness/swelling, fair strength in all extremities. PERIPHERAL VASCULAR: Peripheral pulses palpable. Normal perfusion, cap refill <2 seconds. No edema. NEURO: Follows commands. No focal deficits. SKIN: [place] without lesions or eruptions. PSYCH: Stable, no paranoia or delusional thinking. DS: Data Data Completed and Pending Labs on day of discharge: Labs from last 24 hours 09/10/24 09/10/24 09/10/24 11:48 08:08 05:34 WBC 7.6 RBC 3.64 L Hgb 11.2 L Hct 34.6 L MCV 95.1 MCH 30.8 MCHC 32.4 RDW 13.5 Plt Count 248 MPV 12.1 H Immature Gran % (Auto) 0.4 Neut % (Auto) 54.4 Lymph % (Auto) 30.0 [place] % (Auto) 8.2 Eos % (Auto) 6.5 H Baso % (Auto) 0.5 Lymph # (Auto) 2.27 [place] # (Auto) 0.6 Eos # (Auto) 0.5 H Baso # (Auto) 0.0 Abs Immat Gran (auto) 0.03 Absolute Neuts (auto) 4.1 Absolute Nucleated RBC 0.000 Nucleated RBC % 0.0 Sodium 141 Potassium 3.8 Chloride 106 Carbon Dioxide 26 Anion Gap 9 BUN 9 Creatinine 0.65 L Estim Creat Clear Calc 92 Estimated GFR > 60 Glucose 116 H POC Capillary Glucose 119 H 113 H Calcium 8.8 Total Bilirubin 0.5 AST 23 ALT 21 Alkaline Phosphatase 104 Total Protein 7.0 Albumin 3.2 L 09/09/24 09/09/24 21:01 17:07 WBC RBC Hgb Hct MCV MCH MCHC RDW Plt Count MPV Immature Gran % (Auto) Neut % (Auto) Lymph % (Auto) [place] % (Auto) Eos % (Auto) Baso % (Auto) Lymph # (Auto) [place] # (Auto) Eos # (Auto) Baso # (Auto) Abs Immat Gran (auto) Absolute Neuts (auto) Absolute Nucleated RBC Nucleated RBC % Sodium Potassium Chloride Carbon Dioxide Anion Gap BUN Creatinine Estim Creat Clear Calc Estimated GFR Glucose POC Capillary Glucose 139 H 110 H Calcium Total Bilirubin AST ALT Alkaline Phosphatase Total Protein Albumin Discharge Plan Discharge Attending physician on discharge: El Lal Consulting providers: Ele Velarde Discharging Clinician: El Lal Anticipated Discharge Date/Time: 09/10/24 15:43 Patient Disposition: Home, Self-Care Activity: may shower Diet: as tolerated Discharge Instructions: - Follow up with your primary care provider in the next 1-2 weeks. - Take all medications as prescribed. - If anything other than steady improvement please contact your PCP or seek evaluation urgently. - Please follow all discharge directions as written, call for any questions or need for clarification. - Thank you for choosing [facility] for your healthcare needs - Please ensure f/u with Urology is obtained in near future, office # [phone]. Patient Instructions: Antibiotic Form Patient Language: Serbian Stand Alone Forms: General Discharge Information Follow-up/Referrals: Santiago Covarrubias MD [Physician] - Call for Appointment Abdifatah,Shelly Quezada APRN [Primary Care Provider] - (1-2 weeks. ) Discharge Medications: New solifenacin [Vesicare] 5 mg Tablet 5 mg PO QAM Qty: 30 0RF Continued atorvastatin 20 mg tablet 20 mg PO QPM losartan 50 mg tablet 50 mg PO DAILY metformin 500 mg tablet extended release 24 hr 500 mg PO QPM Other Ambulatory Orders: Basic Metabolic Panel (Routine) Timeframe: 1 Week Location: Determined by Patient Ordered By: El BRANDT lascolin renal scan (Routine) Timeframe: 20240910 Facility: [facility] - Location: [facility] Imaging Ordered By: Bre Mujica Date of admission: 09/05/24 07:29 Primary Care Provider: Abdifatah,Shelly Quezada Admitting Provider: Liz Patino Attending physician on admission: Jayde Quesada Condition: Stable
--- NOTE | 2024-09-10 15:58 | WPDUROPN2 ---
Progress Note: A&P Assessment and Plan (1) Hydroureteronephrosis: Code(s): N13.30 - Unspecified hydronephrosis Status: Acute Assessment and Plan: Severe, Right Unknown etiology (2) Acute renal failure: Qualifiers: Acute renal failure type: unspecified Qualified Code(s): N17.9 - Acute kidney failure, unspecified Code(s): N17.9 - Acute kidney failure, unspecified Status: Acute Assessment and Plan: Resolved (3) Acute urinary retention: Code(s): R33.8 - Other retention of urine Status: Acute Assessment and Plan: Currently managed with indwelling Kothari (4) Acute cystitis with hematuria: Code(s): N30.01 - Acute cystitis with hematuria Status: Acute Assessment and Plan: Urine culture negative Plan Pleasant 69yoF admitted 09/04/24 with acute renal failure, acute urinary retention, severe right hydroureteronephrosis. Urine culture negative. Leukocytosis resolved, WBC 8.2 (peak 17) on IV ceftriaxone. Renal failure resolved (peak Cr 4.2 prior to Kothari placement). Indwelling Kothari draining clear yellow. She had a traumatic Kothari removal in the ER prior to urology consult. No previous history of retention, stones, hematuria, recurrent UTI. 09/04/24 CT reviewed: unilateral severe hydroureteronephrosis without clear source of obstruction. Differential diagnosis includes ureteral stricture, malignancy, recently passed nephrolithiasis, severe cystitis, pyelonephritis. 09/07/24 Renal bladder ultrasound IMPRESSION: 1. Persistent mild left-sided and severe right-sided hydronephrosis with the bladder distended, the with the right hydronephrosis to moderate severity following decompression of the bladder. 2. Diffuse bladder wall thickening which could be due to cystitis or chronic outlet obstruction. - Persistent severe right hydroureteronephrosis on 09/07/24 TALHA despite bladder decompression. - 09/10/24 Lasix renal scan to further assess right kidney --> Symmetric kidney function, Moderately delayed contrast clearance on the right - Plan to follow-up with Dr. Covarrubias for diagnostic cystoscopy, ureteroscopy, etc. Urologically cleared for discharge when OK with others. Patient does not have a problem maintaining catheter at home. Will follow-up in clinic for formal void trial. Subjective Subjective Date/Time Seen: 09/10/24 15:58 Interval history: NAEO; Patient anxious for discharge home. She was urologically cleared several days ago, not sure why she remains inpatient. Lasix renal scan stable. No need for ureteral stent. Exam Const: General: comfortable and no acute distress Urinary Catheter: Urinary Catheter: patent and draining and urine clear Objective Data Vital Signs Vital Signs: Vital Signs - 24 hr 09/09/24 20:00 09/09/24 22:00 09/10/24 06:00 Temperature 97.9 F 97.4 F L Pulse Rate 77 86 Respiratory Rate 20 20 Blood Pressure 136/59 L 161/81 H Pulse Oximetry 100 100 Oxygen Delivery Room Air 09/10/24 08:00 09/10/24 14:09 Temperature 98.4 F Pulse Rate 81 Respiratory Rate 17 Blood Pressure 141/79 H Pulse Oximetry 98 Oxygen Delivery Room Air Intake/Output Intake/Output: Intake & Output 09/07/24 09/08/24 09/09/24 09/10/24 23:59 23:59 23:59 23:59 Intake Total 3530 3380 2160 590 Output Total 4750 3125 1300 2000 Balance -1220 255 860 -1410 Meds/Results Medications: Active Medications Generic Name Dose Route Start Last Admin Trade Name Freq PRN Reason Stop Dose Admin Acetaminophen 650 mg 09/04/24 21:24 09/08/24 21:24 Acetaminophen 325 Mg Tablet PO 650 mg Q4H PRN Administration Mild Pain (1-3) or Fever Atorvastatin Calcium 20 mg 09/05/24 18:00 09/09/24 16:59 Atorvastatin 20 Mg Tablet PO 20 mg QPM SAMAN Administration Enoxaparin Sodium 40 mg 09/06/24 13:40 09/10/24 08:59 Enoxaparin 40 Mg/0.4 Ml Syringe SUB-Q 40 mg DAILY SAMAN Administration Hyoscyamine 0.125 mg 09/06/24 14:32 09/08/24 21:24 Hyoscyamine Sulfate 0.125 Mg Tablet PO 0.125 mg Q4H PRN Administration Bladder Spasm Losartan Potassium 50 mg 09/05/24 09:00 09/10/24 08:57 Losartan Potassium 50 Mg Tablet PO 50 mg DAILY SAMAN Administration Ondansetron HCl 4 mg 09/04/24 21:24 Ondansetron Inj 4 Mg/2 Ml Vial IV PUSH Q4H PRN Nausea Solifenacin 5 mg 09/05/24 16:00 09/10/24 08:57 Solifenacin 5 Mg Tablet PO 5 mg QAM SAMAN Administration Radiology Results: ITS Impressions Abdomen/Pelvis CT 09/04/24 19:10 IMPRESSION: Significant right-sided hydroureteronephrosis without a discrete source of obstruction identified Marked bladder distention with surrounding inflammatory change for which compression and post decompression renal ultrasound is suggested. ADDENDUM: 09/04/242015 Please note, that the impression should read significant right-sided hydroureteronephrosis without a discrete source of obstruction identified. Marked bladder distention with surrounding inflammatory change for which DECOMPRESSION followed by POST DECOMPRESSION RENAL ULTRASOUND is suggested. These findings were discussed with YEIMY Palacios at 1905 on 09/04/2024 Renal Ultrasound 09/07/24 09:26 IMPRESSION: 1. Persistent mild left-sided and severe right-sided hydronephrosis with the bladder distended, the with the right hydronephrosis to moderate severity following decompression of the bladder. 2. Diffuse bladder wall thickening which could be due to cystitis or chronic outlet obstruction. Renal Scan w/Medication NM 09/10/24 13:30 IMPRESSION: 1. Symmetric kidney function. 2. Moderately delayed contrast clearance on the right, consistent with partial obstruction that is likely clinically significant. 3. Mildly delayed contrast clearance on the left, consistent with low grade obstruction of questionable clinical significance. Labs Labs: Laboratory Results - last 24 hr 09/09/24 09/09/24 09/10/24 17:07 21:01 05:34 WBC 7.6 RBC 3.64 L Hgb 11.2 L Hct 34.6 L MCV 95.1 MCH 30.8 MCHC 32.4 RDW 13.5 Plt Count 248 MPV 12.1 H Immature Gran % (Auto) 0.4 Neut % (Auto) 54.4 Lymph % (Auto) 30.0 [place] % (Auto) 8.2 Eos % (Auto) 6.5 H Baso % (Auto) 0.5 Lymph # (Auto) 2.27 [place] # (Auto) 0.6 Eos # (Auto) 0.5 H Baso # (Auto) 0.0 Abs Immat Gran (auto) 0.03 Absolute Neuts (auto) 4.1 Absolute Nucleated RBC 0.000 Nucleated RBC % 0.0 Sodium 141 Potassium 3.8 Chloride 106 Carbon Dioxide 26 Anion Gap 9 BUN 9 Creatinine 0.65 L Estim Creat Clear Calc 92 Estimated GFR > 60 Glucose 116 H POC Capillary Glucose 110 H 139 H Calcium 8.8 Total Bilirubin 0.5 AST 23 ALT 21 Alkaline Phosphatase 104 Total Protein 7.0 Albumin 3.2 L 09/10/24 09/10/24 08:08 11:48 WBC RBC Hgb Hct MCV MCH MCHC RDW Plt Count MPV Immature Gran % (Auto) Neut % (Auto) Lymph % (Auto) [place] % (Auto) Eos % (Auto) Baso % (Auto) Lymph # (Auto) [place] # (Auto) Eos # (Auto) Baso # (Auto) Abs Immat Gran (auto) Absolute Neuts (auto) Absolute Nucleated RBC Nucleated RBC % Sodium Potassium Chloride Carbon Dioxide Anion Gap BUN Creatinine Estim Creat Clear Calc Estimated GFR Glucose POC Capillary Glucose 113 H 119 H Calcium Total Bilirubin AST ALT Alkaline Phosphatase Total Protein Albumin
[2024-09-10 17:36] LABS: Glucose Point of Care 100 mg/dl (65-105)
[2024-09-10] MEDS: ATORVASTATIN 20 MG TABLET PO (17:46)
--- NOTE | 2024-09-10 19:41 | PC.NURSE ---
Patient changed mind about discharge with urology follow up. She is worried about having to keep trinidad for weeks and would rather try void trial now. Urology left it up to patient whether to follow up outpt or attempt void trial while admitted. Notified [place] hospitalist of change in mind and discharge cancelled
[2024-09-10 20:51] VITALS: BP 130/88; PULSE 96; RESP 20; TEMP 37.1; O2SAT 99
[2024-09-10 21:48] LABS: Glucose Point of Care 121 mg/dl (65-105)
[2024-09-11] MEDS: HYOSCYAMINE SULFATE 0.125 MG TABLET PO (00:08)
[2024-09-11 04:35] VITALS: BP 136/64; PULSE 76; RESP 20; TEMP 37.4; O2SAT 99
[2024-09-11 06:04] LABS: Basophils Percent Auto 0.2 % (0.2-1.2); Eosinophils Absolute Auto 0.4 K/mm3 (0-0.3); Eosinophils Percent Auto 4.6 % (0-4.4); Hematocrit 37.2 % (37.0-47.0); Hemoglobin 12.3 g/dL (12.0-15.0); Immature Granulocyte Absolute 0.04 K/mm3 (0.00-0.031); Immature Granulocyte Percent A 0.5 % (0-0.5); Lymphocytes Absolute Auto 2.12 K/mm3 (0.9-3.2); Lymphocytes Percent Auto 25.9 % (18.3-44.2); Mean Corpuscular HGB Conc 33.1 g/dl (32-36); Mean Corpuscular Hemoglobin 31.4 pg (26-34); Mean Corpuscular Volume 94.9 fl (80-100); Monocytes Absolute Auto 0.6 K/mm3 (0.1-0.6); Monocytes Percent Auto 7.2 % (2.6-8.5); Neutrophils Percent Auto 61.6 % (45.5-73.1); Platelet Count Result 255 k/mm3 (150-375); Red Blood Count 3.92 M/mm3 (4.2-5.4); Red Cell Distribution Width 13.5 % (11.5-14.5); White Blood Count 8.2 K/mm3 (4.5-10.0)
[2024-09-11 06:18] LABS: Alanine Aminotransferase 28 U/L (6-35); Albumin Level 3.6 g/dL (3.5-5.1); Alkaline Phosphatase 121 U/L (38-126); Anion Gap 8 mmol/L (4-12); Aspartate Amino Transferase 34 U/L (14-36); Bilirubin,Total 0.6 mg/dL (0.2-1.3); Blood Urea Nitrogen 13 mg/dL (7-17); Calcium 8.8 mg/dL (8.4-10.2); Carbon Dioxide 30 mmol/L (22-30); Chloride 102 mmol/L (98-107); Estimated CRCL calculation 83 ml/min; Estimated Glomerular Filt Rate > 60; Glucose 118 mg/dL (65-110); Potassium 3.7 mmol/L (3.4-5.0); Sodium 140 mmol/L (137-145)
[2024-09-11 08:00] VITALS: PULSE 80; RESP 18; O2SAT 100
[2024-09-11 08:47] LABS: Glucose Point of Care 122 mg/dl (65-105)
[2024-09-11 08:52] VITALS: O2SAT 97
[2024-09-11] MEDS: LOSARTAN POTASSIUM 50 MG TABLET PO (09:06)
[2024-09-11] MEDS: ENOXAPARIN 40 MG/0.4 ML SYRINGE SUB-Q (09:07)
[2024-09-11 12:01] LABS: Glucose Point of Care 140 mg/dl (65-105)
--- NOTE | 2024-09-11 13:03 | PM.IMPN ---
Progress Note: A&P Assessment and Plan (1) Hydroureteronephrosis: Code(s): N13.30 - Unspecified hydronephrosis Status: Acute Assessment and Plan: Renal Ultrasound 09/07/24 09:26 IMPRESSION: 1. Persistent mild left-sided and severe right-sided hydronephrosis with the bladder distended, the with the right hydronephrosis to moderate severity following decompression of the bladder. 2. Diffuse bladder wall thickening which could be due to cystitis or chronic outlet obstruction. Renal Scan w/Medication NM 09/10/24 13:30 IMPRESSION: 1. Symmetric kidney function. 2. Moderately delayed contrast clearance on the right, consistent with partial obstruction that is likely clinically significant. 3. Mildly delayed contrast clearance on the left, consistent with low grade obstruction of questionable clinical significance. Void trial today, post void residual today UA/Culture today Follow up with urology in the clinic (2) Acute renal failure: Qualifiers: Acute renal failure type: unspecified Qualified Code(s): N17.9 - Acute kidney failure, unspecified Code(s): N17.9 - Acute kidney failure, unspecified Status: Acute Assessment and Plan: - Resovled with normal renal function s/p catheterization and fluids. (3) Acute urinary retention: Code(s): R33.8 - Other retention of urine Status: Acute Assessment and Plan: - Trin[place] removed, void trial today --PLanning follow up with urology . (4) Cystitis: Code(s): N30.90 - Cystitis, unspecified without hematuria Status: Resolved Assessment and Plan: - No specific pathogens recovered on cx, no abx to continue. Plan - Discharge with o/p urology f/u. Time Spent With Patient Time: 56 minutes Subjective Date/time seen: 09/11/24 13:03 Interval history: Mild hematuria. Voiding this morning, but doesn't feel it is a normal amount. NAEO; Patient anxious for discharge home. She was urologically cleared several days ago but unable to get follow up for trinidad removal for void trial this morning. Lasix renal scan stable. No need for ureteral stent. Low grade temp, 99.4. Prior cultures are negative Review of Systems Review of Systems: Overall feeling better All systems reviewed & are unremarkable except as noted in HPI and below Exam Narrative: GENERAL APPEARANCE: Appears to be in no acute distress. HEAD: normocephalic atraumatic EYES: EOMI Vision grossly intact. ENT: Hearing grossly intact, no nasal discharge NECK: Neck supple, trachea midline. CARDIAC: Normal S1/S2. Rhythm is regular. No murmurs, rubs, or gallops. No cyanosis or pallor. Extremities are warm and well perfused. LUNGS: Clear to auscultation without rales, rhonchi, wheezing or diminished breath sounds. Respirations even and unlabored. ABDOMEN: BS positive x 4 quadrants. Soft, nondistended, nontender. No guarding or rebound. MSK: No joint tenderness/swelling, fair strength in all extremities. PERIPHERAL VASCULAR: Peripheral pulses palpable. Normal perfusion, cap refill <2 seconds. No edema. NEURO: Follows commands. No focal deficits. SKIN: [place] without lesions or eruptions. PSYCH: Stable, normal mood and affect Objective Data Vital Signs Vital Signs: Vital Signs - 24 hr 09/10/24 14:09 09/10/24 20:00 09/10/24 20:51 Temperature 98.4 F 98.8 F Pulse Rate 81 96 Respiratory Rate 17 20 Blood Pressure 141/79 H 130/88 Pulse Oximetry 98 99 Oxygen Delivery Room Air 09/11/24 04:35 09/11/24 08:00 09/11/24 08:52 Temperature 99.4 F Pulse Rate 76 80 Respiratory Rate 20 18 Blood Pressure 136/64 Pulse Oximetry 99 100 97 Oxygen Delivery Room Air Room Air Intake/Output Intake/Output: Intake & Output 09/08/24 09/09/24 09/10/24 09/11/24 23:59 23:59 23:59 23:59 Intake Total 3380 2160 1550 840 Output Total 3125 1300 4150 1350 Balance 255 860 2600 510 Meds/Results Medications: Active Medications Generic Name Dose Route Start Last Admin Trade Name Freq PRN Reason Stop Dose Admin Acetaminophen 650 mg 09/04/24 21:24 09/08/24 21:24 Acetaminophen 325 Mg Tablet PO 650 mg Q4H PRN Administration Mild Pain (1-3) or Fever Atorvastatin Calcium 20 mg 09/05/24 18:00 09/10/24 17:46 Atorvastatin 20 Mg Tablet PO 20 mg QPM SAMAN Administration Enoxaparin Sodium 40 mg 09/06/24 13:40 09/11/24 09:07 Enoxaparin 40 Mg/0.4 Ml Syringe SUB-Q 40 mg DAILY SAMAN Administration Hyoscyamine 0.125 mg 09/06/24 14:32 09/11/24 00:08 Hyoscyamine Sulfate 0.125 Mg Tablet PO 0.125 mg Q4H PRN Administration Bladder Spasm Losartan Potassium 50 mg 09/05/24 09:00 09/11/24 09:06 Losartan Potassium 50 Mg Tablet PO 50 mg DAILY SAMAN Administration Ondansetron HCl 4 mg 09/04/24 21:24 Ondansetron Inj 4 Mg/2 Ml Vial IV PUSH Q4H PRN Nausea Solifenacin 5 mg 09/05/24 16:00 09/11/24 09:04 Solifenacin 5 Mg Tablet PO Not Given QAM [facility] Radiology Results: ITS Impressions Abdomen/Pelvis CT 09/04/24 19:10 IMPRESSION: Significant right-sided hydroureteronephrosis without a discrete source of obstruction identified Marked bladder distention with surrounding inflammatory change for which compression and post decompression renal ultrasound is suggested. ADDENDUM: 09/04/242015 Please note, that the impression should read significant right-sided hydroureteronephrosis without a discrete source of obstruction identified. Marked bladder distention with surrounding inflammatory change for which DECOMPRESSION followed by POST DECOMPRESSION RENAL ULTRASOUND is suggested. These findings were discussed with YEIMY Palacios at 1905 on 09/04/2024 Renal Ultrasound 09/07/24 09:26 IMPRESSION: 1. Persistent mild left-sided and severe right-sided hydronephrosis with the bladder distended, the with the right hydronephrosis to moderate severity following decompression of the bladder. 2. Diffuse bladder wall thickening which could be due to cystitis or chronic outlet obstruction. Renal Scan w/Medication NM 09/10/24 13:30 IMPRESSION: 1. Symmetric kidney function. 2. Moderately delayed contrast clearance on the right, consistent with partial obstruction that is likely clinically significant. 3. Mildly delayed contrast clearance on the left, consistent with low grade obstruction of questionable clinical significance. Labs Labs: Laboratory Results - last 24 hr 09/10/24 09/10/24 09/11/24 16:55 20:49 05:55 WBC 8.2 RBC 3.92 L Hgb 12.3 Hct 37.2 MCV 94.9 MCH 31.4 MCHC 33.1 RDW 13.5 Plt Count 255 MPV 12.0 H Immature Gran % (Auto) 0.5 Neut % (Auto) 61.6 Lymph % (Auto) 25.9 [place] % (Auto) 7.2 Eos % (Auto) 4.6 H Baso % (Auto) 0.2 Lymph # (Auto) 2.12 [place] # (Auto) 0.6 Eos # (Auto) 0.4 H Baso # (Auto) 0.0 Abs Immat Gran (auto) 0.04 H Absolute Neuts (auto) 5.0 Absolute Nucleated RBC 0.000 Nucleated RBC % 0.0 Sodium 140 Potassium 3.7 Chloride 102 Carbon Dioxide 30 Anion Gap 8 BUN 13 Creatinine 0.72 Estim Creat Clear Calc 83 Estimated GFR > 60 Glucose 118 H POC Capillary Glucose 100 121 H Calcium 8.8 Total Bilirubin 0.6 AST 34 ALT 28 Alkaline Phosphatase 121 Total Protein 7.0 Albumin 3.6 09/11/24 09/11/24 08:25 11:51 WBC RBC Hgb Hct MCV MCH MCHC RDW Plt Count MPV Immature Gran % (Auto) Neut % (Auto) Lymph % (Auto) [place] % (Auto) Eos % (Auto) Baso % (Auto) Lymph # (Auto) [place] # (Auto) Eos # (Auto) Baso # (Auto) Abs Immat Gran (auto) Absolute Neuts (auto) Absolute Nucleated RBC Nucleated RBC % Sodium Potassium Chloride Carbon Dioxide Anion Gap BUN Creatinine Estim Creat Clear Calc Estimated GFR Glucose POC Capillary Glucose 122 H 140 H Calcium Total Bilirubin AST ALT Alkaline Phosphatase Total Protein Albumin Quality VTE Prophylaxis VTE prophylaxis: pharmacologic ordered Hospitalist MIPS Advance Care Plan I have confirmed that the patient's Advanced Care Plan is present, code status is documented, or surrogate decision maker is listed in patient medical record.: Yes Medication Reconciliation I have utilized all available resources to obtain, update and review the patients current medications (includes all prescriptions, OTC, herbals, cannabis, and nutritional supplements).: Yes
--- NOTE | 2024-09-11 13:21 | PM.DS ---
DS: Admitting Diagnosis Discharge Date 09/11/2024 Admitting Diagnosis Acute urinary retention DS: Discharge Diagnosis Discharge Diagnosis (1) Hydroureteronephrosis: Code(s): N13.30 - Unspecified hydronephrosis Status: Acute (2) Acute urinary retention: Code(s): R33.8 - Other retention of urine Status: Acute (3) Cystitis: Code(s): N30.90 - Cystitis, unspecified without hematuria Status: Resolved (4) Acute cystitis with hematuria: Code(s): N30.01 - Acute cystitis with hematuria Status: Acute (5) Acute renal failure: Qualifiers: Acute renal failure type: unspecified Qualified Code(s): N17.9 - Acute kidney failure, unspecified Code(s): N17.9 - Acute kidney failure, unspecified Status: Acute DS: Summary Hospital Course Reason for hospitalization: Copied from [facility] 09/05: This very pleasant 59 year old female pt with PMH of DM, HTN and HLD who was recently treated as an outpatient for UTI presented to the ER last evening with complaints of continued urinary burning, back pain and overall not feeling well. Workup was initiated in the ER and it was found that pt had UTI, BRANDI with creatinine of 4.12 and Leukocytosis of 17K with left shift. No known hx of what pt's baseline Creatinine is, but it is presumed to be normal range. CT abd and pelvis was found and it showed right sided hydroureteronephrosis without a discrete source of obstruction identified and marked bladder distention with surrounding inflammatory change for which Decompression and post decompression renal US was suggested. A trinidad catheter was placed and the pt had renal US that demonstrated severe right sided and mild left sided hydroureternephrosis with persistent bladder distention and nonvisualization of the ureteral jets. Pt removed her own Trinidad catheter with balloon intact after the test, but has been able to urinate well. She states she has improvement overall and feels that she is emptying more. She was started on abx of Rocephin, started on IVF for BRANDI and Urology was consulted and she was admitted to the hospital in the current setting without any other acute complaints or symptoms. Hospital Course: Hydroureteronephrosis: Acute renal failure, obstructive Acute urinary retention Cystitis, Hematuria BRANDI resolved with normal renal function s/p catheterization and fluids. Trinidad removed and void trial was done but failed. Asymptomatic with 600ml out. Trinidad replaced by urology. Temp 99.6 and hematuria. Urine culture no growth 09/04 --Planning follow up with urology Urology consulted during admission. Patient will follow up in clinic --Will need follow up urodynamics --Started vesicare Renal Ultrasound 09/07/24 09:26 IMPRESSION: 1. Persistent mild left-sided and severe right-sided hydronephrosis with the bladder distended, the with the right hydronephrosis to moderate severity following decompression of the bladder. 2. Diffuse bladder wall thickening which could be due to cystitis or chronic outlet obstruction. Renal Scan w/Medication NM 09/10/24 13:30 IMPRESSION: 1. Symmetric kidney function. 2. Moderately delayed contrast clearance on the right, consistent with partial obstruction that is likely clinically significant. 3. Mildly delayed contrast clearance on the left, consistent with low grade obstruction of questionable clinical significance. Time Spent with Patient Time attestation: Total time spent providing and/or coordinating discharge services: Exam Narrative: General - Awake and alert. No acute distress Eyes - PERRLA, EOM intact ENT - No thrush, No erythema Neck - No noticeable or palpable swelling Lymph Nodes - No lymphadenopathy Cardiovascular - RRR no m/r/g, no JVD Lungs: Clear to auscultation, No wheezing, use of accessory muscles, no crackles or wheezes. Skin - Skin warm and dry, no wounds or rashes Abdomen - Normal bowel sounds, abdomen soft and nontender Extremities - No edema, cyanosis or clubbing Musculoskeletal - 5/5 strength, normal range of motion, no swollen or erythematous joints. Neurological ? Alert and oriented x 3, CN 2-12 grossly intact. Psych: Normal mood and affect DS: Data Data Completed and Pending Labs on day of discharge: Labs from last 24 hours 09/11/24 09/11/24 09/11/24 11:51 08:25 05:55 WBC 8.2 RBC 3.92 L Hgb 12.3 Hct 37.2 MCV 94.9 MCH 31.4 MCHC 33.1 RDW 13.5 Plt Count 255 MPV 12.0 H Immature Gran % (Auto) 0.5 Neut % (Auto) 61.6 Lymph % (Auto) 25.9 [place] % (Auto) 7.2 Eos % (Auto) 4.6 H Baso % (Auto) 0.2 Lymph # (Auto) 2.12 [place] # (Auto) 0.6 Eos # (Auto) 0.4 H Baso # (Auto) 0.0 Abs Immat Gran (auto) 0.04 H Absolute Neuts (auto) 5.0 Absolute Nucleated RBC 0.000 Nucleated RBC % 0.0 Sodium 140 Potassium 3.7 Chloride 102 Carbon Dioxide 30 Anion Gap 8 BUN 13 Creatinine 0.72 Estim Creat Clear Calc 83 Estimated GFR > 60 Glucose 118 H POC Capillary Glucose 140 H 122 H Calcium 8.8 Total Bilirubin 0.6 AST 34 ALT 28 Alkaline Phosphatase 121 Total Protein 7.0 Albumin 3.6 09/10/24 09/10/24 20:49 16:55 WBC RBC Hgb Hct MCV MCH MCHC RDW Plt Count MPV Immature Gran % (Auto) Neut % (Auto) Lymph % (Auto) [place] % (Auto) Eos % (Auto) Baso % (Auto) Lymph # (Auto) [place] # (Auto) Eos # (Auto) Baso # (Auto) Abs Immat Gran (auto) Absolute Neuts (auto) Absolute Nucleated RBC Nucleated RBC % Sodium Potassium Chloride Carbon Dioxide Anion Gap BUN Creatinine Estim Creat Clear Calc Estimated GFR Glucose POC Capillary Glucose 121 H 100 Calcium Total Bilirubin AST ALT Alkaline Phosphatase Total Protein Albumin Discharge Plan Discharge Attending physician on discharge: El Lal Consulting providers: Ele Velarde; Bre Mujica; Jayde Quesada; Mariah Lemon; El Lal; Farzaneh Barnett; Sedrick Henning; Jeff Galvez V. Discharging Clinician: El Lal Anticipated Discharge Date/Time: 09/10/24 15:43 Patient Disposition: Home, Self-Care Activity: may shower Diet: as tolerated Discharge Instructions: - Follow up with your primary care provider in the next 1-2 weeks. - Take all medications as prescribed. - If anything other than steady improvement please contact your PCP or seek evaluation urgently. - Please follow all discharge directions as written, call for any questions or need for clarification. - Thank you for choosing [facility] for your healthcare needs -Clean catheter insertion site twice a day with liquid soap, prefer chlorhexadine soap - Please ensure f/u with Urology is obtained in near future, office # [phone]. Patient Instructions: Antibiotic Form, Trinidad Catheter Placement and Care (DC), Chronic Urinary Retention in Women (DC), Urinary Leg Bag (GEN), How to Change a Catheter Drainage Bag (GEN) Patient Language: Spanish Stand Alone Forms: General Discharge Information Follow-up/Referrals: Santiago Covarrubias MD [Physician] - Call for Appointment Abdifatah,Shelly Quezada, CEDRICK [Primary Care Provider] - (1-2 weeks. ) Discharge Medications: New solifenacin [Vesicare] 5 mg Tablet 5 mg PO QAM Qty: 30 0RF chlorhexidine gluconate 4 % liquid 1 applic topical DAILY Qty: 473 1RF Rx Instructions: for catheter care Continued atorvastatin 20 mg tablet 20 mg PO QPM losartan 50 mg tablet 50 mg PO DAILY metformin 500 mg tablet extended release 24 hr 500 mg PO QPM Other Ambulatory Orders: Basic Metabolic Panel (Routine) Timeframe: 1 Week Location: Determined by Patient Ordered By: El BRANDT lasix renal scan (Routine) Timeframe: 20240910 Facility: [facility] - Location: [facility] Imaging Ordered By: Bre Mujica Date of admission: 09/05/24 07:29 Primary Care Provider: AbdifatahShelly Admitting Provider: Liz Patino Attending physician on admission: Valentina Orellana Condition: Stable Hospitalist MIPS Heart Failure (Exclusion) Patient has history of Heart Transplant or Left Ventricular Assistive Device?: No IF YES, STOP HERE Heart Failure (Qualifier) Patient has current or prior documentation of LVEF less than or equal to 40%, or mod/servere depressed LVSF?: No IF NO, STOP HERE
--- NOTE | 2024-09-11 15:58 | P.PNUR_ITS ---
Progress Note: A&P Assessment and Plan (1) Hydroureteronephrosis: Code(s): N13.30 - Unspecified hydronephrosis Status: Acute Assessment and Plan: Severe, Right Unknown etiology (2) Acute renal failure: Qualifiers: Acute renal failure type: unspecified Qualified Code(s): N17.9 - Acute kidney failure, unspecified Code(s): N17.9 - Acute kidney failure, unspecified Status: Acute Assessment and Plan: Resolved (3) Acute urinary retention: Code(s): R33.8 - Other retention of urine Status: Acute (4) Acute cystitis with hematuria: Code(s): N30.01 - Acute cystitis with hematuria Status: Acute Assessment and Plan: Urine culture negative Plan Pleasant 69yoF admitted 09/04/24 with acute renal failure, acute urinary retention, severe right hydroureteronephrosis. Urine culture negative. Leukocytosis resolved, WBC 8.2 (peak 17) on IV ceftriaxone. Renal failure r esolved (peak Cr 4.2 prior to Kothari placement). Indwelling Kothari draining clear yellow. She had a traumatic Kothari removal in the ER prior to urology consult. No previous history of retention, stones, hematuria, recurrent UTI. [09/04/24 CT reviewed: unilateral severe hydroureteronephrosis without clear source of obstruction. Differential diagnosis includes ureteral stricture, malignancy, recently passed nephrolithiasis, severe cystitis, pyelonephritis. 09/07/24 Renal bladder ultrasound IMPRESSION: 1. Persistent mild left-sided and severe right-sided hydronephrosis with the bladder distended, the with the right hydronephrosis to moderate severity following decompression of the bladder. 2. Diffuse bladder wall thickening which could be due to cystitis or chronic outlet obstruction.] - Persistent severe right hydroureteronephrosis on 09/07/24 TALHA despite bladder decompression. - 09/10/24 Lasix renal scan to further assess right kidney --> Symmetric kidney function, Moderately delayed contrast clearance on the right. - Patient failed void trial 09/11/24. Completely asymptomatic with bladder scan >600mL. She feels no urge to urinate. - 18Fr indwelling Kothari catheter replaced at bedside without difficulty by Dr. Wright, 1.4L clear yellow output. Tubing secured off tension with Velcro strap. - Nurses to complete Kothari teaching to include using a leg bag. - Plan to follow-up with Dr. Covarrubias for further workup. She will need Urodynamics for formal bladder evaluation. - Urologically cleared for discharge. Patient does not have a problem maintaining catheter at home. Subjective Subjective Date/Time Seen: 09/11/24 15:58 Interval history: NAEO; Comfortable on exam. Patient failed void trial today. She is asymptomatic with bladder scan >600mL. Indwelling Kothari catheter replaced at bedside without difficulty, 1.4L clear yellow output. Exam Const: General: comfortable and no acute distress Objective Data Vital Signs Vital Signs: Vital Signs - 24 hr 09/10/24 20:00 09/10/24 20:51 09/11/24 04:35 Temperature 98.8 F 99.4 F Pulse Rate 96 76 Respiratory Rate 20 20 Blood Pressure 130/88 136/64 Pulse Oximetry 99 99 Oxygen Delivery Room Air 09/11/24 08:00 09/11/24 08:52 Temperature Pulse Rate 80 Respiratory Rate 18 Blood Pressure Pulse Oximetry 100 97 Oxygen Delivery Room Air Room Air Intake/Output Intake/Output: Intake & Output 09/08/24 09/09/24 09/10/24 09/11/24 23:59 23:59 23:59 23:59 Intake Total 3380 2160 1550 840 Output Total 3125 1300 4150 1350 Balance 255 750 2600 -060 Meds/Results Medications: Active Medications Generic Name Dose Route Start Last Admin Trade Name Freq PRN Reason Stop Dose Admin Acetaminophen 650 mg 09/04/24 21:24 09/08/24 21:24 Acetaminophen 325 Mg Tablet PO 650 mg Q4H PRN Administration Mild Pain (1-3) or Fever Atorvastatin Calcium 20 mg 09/05/24 18:00 09/10/24 17:46 Atorvastatin 20 Mg Tablet PO 20 mg QPM SAMAN Administration Enoxaparin Sodium 40 mg 09/06/24 13:40 09/11/24 09:07 Enoxaparin 40 Mg/0.4 Ml Syringe SUB-Q 40 mg DAILY SAMAN Administration Hyoscyamine 0.125 mg 09/06/24 14:32 09/11/24 00:08 Hyoscyamine Sulfate 0.125 Mg Tablet PO 0.125 mg Q4H PRN Administration Bladder Spasm Losartan Potassium 50 mg 09/05/24 09:00 09/11/24 09:06 Losartan Potassium 50 Mg Tablet PO 50 mg DAILY [facility] Administration Ondansetron HCl 4 mg 09/04/24 21:24 Ondansetron Inj 4 Mg/2 Ml Vial IV PUSH Q4H PRN Nausea Solifenacin 5 mg 09/05/24 16:00 09/11/24 09:04 Solifenacin 5 Mg Tablet PO Not Given QAM [facility] Radiology Results: ITS Impressions Abdomen/Pelvis CT 09/04/24 19:10 IMPRESSION: Significant right-sided hydroureteronephrosis without a discrete source of obstruction identified Marked bladder distention with surrounding inflammatory change for which compression and post decompression renal ultrasound is suggested. ADDENDUM: 09/04/242015 Please note, that the impression should read significant right-sided hydroureteronephrosis without a discrete source of obstruction identified. Marked bladder distention with surrounding inflammatory change for which DECOMPRESSION followed by POST DECOMPRESSION RENAL ULTRASOUND is suggested. These findings were discussed with YEIMY Palacios at 1905 on 09/04/2024 Renal Ultrasound 09/07/24 09:26 IMPRESSION: 1. Persistent mild left-sided and severe right-sided hydronephrosis with the bladder distended, the with the right hydronephrosis to moderate severity following decompression of the bladder. 2. Diffuse bladder wall thickening which could be due to cystitis or chronic outlet obstruction. Renal Scan w/Medication NM 09/10/24 13:30 IMPRESSION: 1. Symmetric kidney function. 2. Moderately delayed contrast clearance on the right, consistent with partial obstruction that is likely clinically significant. 3. Mildly delayed contrast clearance on the left, consistent with low grade obstruction of questionable clinical significance. Labs Labs: Laboratory Results - last 24 hr 09/10/24 09/10/24 09/11/24 16:55 20:49 05:55 WBC 8.2 RBC 3.92 L Hgb 12.3 Hct 37.2 MCV 94.9 MCH 31.4 MCHC 33.1 RDW 13.5 Plt Count 255 MPV 12.0 H Immature Gran % (Auto) 0.5 Neut % (Auto) 61.6 Lymph % (Auto) 25.9 [place] % (Auto) 7.2 Eos % (Auto) 4.6 H Baso % (Auto) 0.2 Lymph # (Auto) 2.12 [place] # (Auto) 0.6 Eos # (Auto) 0.4 H Baso # (Auto) 0.0 Abs Immat Gran (auto) 0.04 H Absolute Neuts (auto) 5.0 Absolute Nucleated RBC 0.000 Nucleated RBC % 0.0 Sodium 140 Potassium 3.7 Chloride 102 Carbon Dioxide 30 Anion Gap 8 BUN 13 Creatinine 0.72 Estim Creat Clear Calc 83 Estimated GFR > 60 Glucose 118 H POC Capillary Glucose 100 121 H Calcium 8.8 Total Bilirubin 0.6 AST 34 ALT 28 Alkaline Phosphatase 121 Total Protein 7.0 Albumin 3.6 09/11/24 09/11/24 08:25 11:51 WBC RBC Hgb Hct MCV MCH MCHC RDW Plt Count MPV Immature Gran % (Auto) Neut % (Auto) Lymph % (Auto) [place] % (Auto) Eos % (Auto) Baso % (Auto) Lymph # (Auto) [place] # (Auto) Eos # (Auto) Baso # (Auto) Abs Immat Gran (auto) Absolute Neuts (auto) Absolute Nucleated RBC Nucleated RBC % Sodium Potassium Chloride Carbon Dioxide Anion Gap BUN Creatinine Estim Creat Clear Calc Estimated GFR Glucose POC Capillary Glucose 122 H 140 H Calcium Total Bilirubin AST ALT Alkaline Phosphatase Total Protein Albumin
== END 2024-09-11 17:07 | disposition home or self-care (01) | DRG 690 ==
LOC: ANHED 19:13 → ANH2MED 21:50
PROVIDERS: Family Medicine; Nurse Practitioner Adult Health; Physician Assistant; Admitting Provider Internal Medicine; Emergency Provider Student in an Organized Health Care Education/Training Program; Visit Provider Nurse Practitioner Acute Care
DX: N13.6 Pyonephrosis (principal); N17.9 Acute kidney failure, unspecified; R33.9 Retention of urine, unspecified; I10 Essential (primary) hypertension; E78.5 Hyperlipidemia, unspecified; E11.9 Type 2 diabetes mellitus without complications
CPT/HCPCS: 36415; 74176; 76775; 78708; 80053; 81001; 82948; 83036; 83605; 85025; 85055; 87040; 87086; 96361; 96365; 96375; 99285; A9270; A9562; C1769; G0378; J0696; J1650; J7030; J7120

== ENCOUNTER 2024-11-02 01:03 | Day surgery (SDC) | payer OTHER, SELFPAY ==
[2024-10-22 13:25] VITALS: BMI 40.6
--- NOTE | 2024-10-22 13:25 | PC.NURSE ---
Report to the Outpatient Waiting Room, entrance under the green pavilion located off [facility], at time _0815_ on date _11/02/24__. Planned Procedure Time: _1015__.? Time changes happen often and if your time is changed the preop area will call you the afternoon before. - You and your visitor will be asked to self-screen and do not enter if you have any COVID symptoms. Please call surgeon if you need to reschedule. - A mask is optional within the hospital at this time. Patients may have clear liquids (water, carbonated beverages, clear teas, apple juice) until 3 hours prior to surgery with a maximum of 20 ounces. - No food from midnight until time of surgery and no smoking, or chewing tobacco (or any form of nicotine). No chewing gum, candy or mints. - Infants may have breast milk until 4 hours before surgery, infant formula 6 hours prior to surgery. - Children will be allowed to drink immediately following surgery.? If applicable, please bring a bottle or sippy cup to assist with drinking. Juice, water, soda, and popsicles are readily available.? For infants on formula, please bring formula the day of surgery.? Pacifiers are allowed. Take only the following medications with a SIP of water on the morning of surgery: NONE DO NOT STOP ANY OF YOUR OTHER PRESCRIPTION MEDICATIONS PRIOR TO SURGERY EXCEPT THE FOLLOWING Hold all vitamins and supplements for 3 days per anesthesiologist. Medications to discontinue per physician Date to take last dose Please no make-up, nail english, hairspray, perfume, deodorant, or body powder the day of surgery.? No jewelry (including any body piercings) or valuables the day of surgery, leave them at home.? Please take a shower or bath the night before, or the morning of, surgery with an antibacterial soap.? Wear comfortable, loose fitting clothing.? Children are encouraged to wear pajamas. - Jewelry must be removed prior to entering the operating room.? Rings and piercings that are not removed may be cut off. - The hospital will not accept responsibility for valuables.? - Please leave all valuables, including medications, at home the day of surgery. If you are going home after surgery, a licensed truck driver salesperson must drive you home.? - NO public transportation without another adult if you receive anesthesia. - We recommend that an adult stay with you for 24 hours following discharge. - We also recommend that you do not drive, make important decision, drink alcoholic beverages, or take any drugs that were not prescribed by your health care provider for at least 24 hours after your discharge time. For Pediatric surgeries, we recommend two adults accompany the child home. Follow any additional instructions given to you from your surgeon. Telephone instructions given to __PATIENT__and asked if any additional questions and then verbalized understanding. Patient advised to call surgeon office or pre surgery nurse liaison [phone] if any additional questions.
--- NOTE | 2024-10-28 14:43 | P.HP_ITS ---
H&P: HPI History of Present Illness Date/Time: 10/28/24 14:43 Chief Complaint: bladder dysfunction Narrative: Note:?Farzaneh Ng is a 59-year-old female who presents for a follow-up visit. She was admitted to [facility] a few weeks ago with urinary retention of a very high volume. A Kothari catheter was difficult to place due to patient anatomy but was eventually successful. She was noted to have bilateral hydronephrosis and failed a voiding trial, leading to her being sent home with a Kothari catheter. At the time, she also had acute renal failure, which resolved with Kothari catheter placement. In the interim, she has had a urodynamics test, which shows a highly noncompliant bladder with elevated bladder pressures up to 50 centimeters of water pressure. She was found to try to void with Valsalva and paradoxical increase pelvic floor EMG. She was only able to void very little and has an elevated residual urine. She continues to be with a Kothari catheter. She also had a Lasix renal scan, which is not consistent with obstruction. The patient reports that her bladder issues started longer than a month ago, initially presenting as an inability to hold urine, which she describes as overflow incontinence. This progressed to difficulty urinating. She had a urinary tract infection (UTI) due to not emptying her bladder, which led to the discovery of her underlying condition. She denies any back pain, neurologic problems, or issues with holding a pencil, falling down, or walking. Review of Systems Review of Systems: All systems reviewed & are unremarkable except as noted in HPI and below PMFSH Past Medical History Medical History Hyperlipidemia Hypertension Diabetes mellitus Family History Family History Mother Hypertension Father Cerebrovascular accident Social History Social History Years smoked: 1 Smoking status: Former smoker Tobacco type: cigarettes Alcohol intake: current Alcohol use details: RARE GLASS OF WINE Substance use: never Substance use type: does not use Do You Feel Safe in your Home?: No Lack of Transportation: No Lack of Food: Never True Current Housing: I Have Housing Concerned About Future Housing: No Difficulty Paying Gas/Electric Bills: No Difficulty Paying for Meds: No Currently Unemployed: No Education: Trade/Vocational Certificate Difficulty w/ Childcare or Family Care: No Living arrangements: with family Spiritual care concerns: No Meds Home Medications and Allergies Home Medications ?Medication ?Instructions ?Recorded ?Confirmed ?Type atorvastatin 20 mg tablet 20 mg PO QPM 10/22/21 10/22/24 History losartan 50 mg tablet 50 mg PO DAILY 09/04/24 10/22/24 History metformin 500 mg tablet,extended 500 mg PO QPM 09/04/24 10/22/24 History release 24 hr Allergies Allergy/AdvReac Type Severity Reaction Status Date / Time No Known Allergies Allergy Verified 10/22/24 13:16 Exam Narrative: NAD A+O x3 Assessment and Plan Assessment and plan (1) Other retention of urine: Code(s): R33.8 - Other retention of urine Status: Acute (2) Bilateral hydronephrosis: Code(s): N13.30 - Unspecified hydronephrosis Status: Acute Plan The patient was educated on the need to learn self-catheterization to manage her urinary retention and prevent kidney damage. ?She has difficulty due to her body habitus. ?Her is able to help her and performed the procedure. ?She will keep working on in practicing doing this at home - A formal cystoscopy with retrograde pyelogram bilaterally was recommended to further evaluate her bladder and kidney function. - The patient was advised to stop taking overactive bladder medication as it would not help her current condition. - The patient and her were instructed on how to perform self- catheterization, and her successfully catheterized her during the visit. - The patient will continue to work on self-catheterization at home with the assistance of her . - Follow-up was recommended to monitor her progress and ensure she gets the hang of self-catheterization.
--- NOTE | ~2024-11-02 | XR_ITS ---
EXAMINATION: XR retrograde pyelogram BI DATE: 11/02/2024 10:05 INDICATION: Bilateral retrograde pyelogram and with cystoscopy TECHNIQUE: 129 fluoroscopic images of the abdomen and pelvis were obtained during procedure performed by Dr. Covarrubias. Radiologist was not present for the imaging or procedure. The amount of fluoroscopy time used during this procedure was 0.4 minutes. Total DAP was 0.955 mGym^2. COMPARISON: CT dated 09/04/2024 FINDINGS: Retrograde contrast injection into both the left and right ureters demonstrate mild right hydronephro sis. Normal left side renal collecting system. No evident strictures, urothelial irregularities or fi lling defects identified. Phlebolith in the left hemipelvis. IMPRESSION: 1. Mild right hydronephrosis with no evident obstructing stones or strictures along the bilateral ure ters and renal collecting systems. See procedure note for further detail. Reviewed, dictated and finalized at location A. IMPRESSION: 1. Mild right hydronephrosis with no evident obstructing stones or strictures a long the bilateral ureters and renal collecting systems. See procedure note for further detail.
--- OUTSIDE RECORDS SUMMARY | 2024-11-02 01:06 | XMS_ITS | Clinical Summary ---
Author Organization [facility] Address [address] [address] Care Team Providers Care Novelty Maker Name Role Phone Odalis Mcnally MD Primary Care Provider [phone] Source Comments [facility],non-owned Affiliates and Associated Physician Practices is amultiple site organization consisting of ambulatory clinics and hospital sitesin [place], [place], [place] and [place]. This disclosure is being madepursuant to the Care Everywhere program and may not contain all information available regarding this patient. Last updated 18.[facility] Parents Allergies No known active allergies Medications * [...] 81 12/01/2018 5:48 PM CDT Temperature 36.7 C (98 F) 12/01/2018 5:48 PM CDT Respiratory Rate 16 [...] 2016 SCREENING FOR DIABETES 01/20/2018 COVID-19 VACCINE (1 - 2023-2 5 season) 2024 INFLUENZA VACCINE (#1) 2024 DEPRESSION SCREENING 08/01/2024 HIB VACCINE Aged Out No longer eligi ble based on patient's age to complete this topic HPV VACCINE Aged Out No longer eligi ble based on patient's age to complete this topic MENINGOCOCCAL (Group B) VACC INE SHARED DECISION-MAKING Aged Out No longer eligibl e based on patient's age to complete this topic MENINGOCOCCAL GROUPS A/C/Y/W VACCINE Aged Out No longer eligible b ased on patient's age to complete this topic PNEUMOCOCCAL VACCINE Aged Out No long er eligible based on patient's age to complete this topic Care Teams Novelty Maker Relationship Specialty Start Date End Date Odalis Mcnally MD [address] [place] [phone] PCP - General Family Medicine 01/20/18
--- OUTSIDE RECORDS SUMMARY | 2024-11-02 01:07 | XMS_ITS | Data Portability ---
Author Organization [facility] [employer], Main Office Address [address] [place] [address] Assessment No assessment recorded. Plan of Treatment Reminders Order Date Submit Date Provider Last Modified By Organization Details Last Modified Time Details Appointments Follow Up 15 2024 07:30A AGUEDA Porter Not available Not available Not available Lab HbA1c (hemoglob in A1c), blood 2024 025 ANGELES [facility], [address], [address], [place], [address], 10/26/2024 09:59:32 renal function panel, serum 2024 025 BIDDLE [facility], [address], [place], [address], 10/26/2024 19:34:30 pap, IG + reflex HR HPV 2024 025 BIDDLE [facility], [address], [place], [address], 09/03/2024 23:15:07 urinalysi s, dipstick [address], [address], 08/29/2024 09:31:03 urinalysi s, dipstick [address], [address], 05/22/2024 09:17:25 HbA1c (hemoglob in A1c), blood 2023 024 [facility], [address], [address], [place], [address], 03/26/2024 08:23:58 TSH + free T4, serum 2023 024 [facility], [address], [place], [address], 11/28/2023 08:28:52 HbA1c (hemoglob in A1c), blood 2023 024 [email or web address], [address], [address], [place], [address], 11/28/2023 08:28:52 noninvasi ve colorecta l cancer DNA + occult blood screening , QL, stool 2023 024 [employer] [facility] (Cologuard Orders Only), [address], [address], [place], [address], 11/22/2023 13:59:23 lipid panel, serum 2023 024 [email or web address], [address], [address], [place], [address], 11/28/2023 08:28:52 CMP, serum or plasma 2023 024 [facility], [address], [place], [address], 11/28/2023 08:28:52 Referral None recorded. Procedures None recorded. Surgeries None recorded. Imaging MAMMO, screening , digital, bilateral - Please call pt to schedule 2023 [email or web address] [place] [address] ([facility]), [address] [place], [address], 05/31/2024 10:03:46 Medication Orders Macrobid 100 mg capsule [address] [facility], [address] [place] [address], [address], 10/26/2024 09:42:16 nitrofura ntoin macrocrys chilo 100 mg capsule [address] [facility], [address] [place] [address], [address], 08/29/2024 08:59:17 metformin ER 500 mg tablet,ex tended release 24 hr 2023 [facility], [address] [place] [address], [address], 05/22/2024 08:59:46 losartan 50 mg tablet 2023 [facility] [address], [address] [place] [address], [address], 05/22/2024 08:59:45 atorvasta tin 20 mg tablet 2023 [facility], [address] [place] [address], [address], 05/22/2024 08:59:46 Patient TargetsNo targets recorded. Patient Instructions Encounter Date Encounter Id Patient Instructions Last Modified By Organization Details Last Modified Time 12/28/2023 [id number] type 2 diabetes: care instructions [email or web address] Not available 12/28/2023 08:56:21 Reason for Referral None Reported. Results Created Date Observation Date Name Description Value Unit Range Abnormal Flag Note LastModifiedBy Organization Detail LastModifiedTime 05/17/20 24 05/17/2024 COLOG UARD cologuard result Cancel led - Order d not applic able Not Available [facility] (Cologuard Orders Only) [address], [place], [address], 05/17/2024 08:12:50 11/22/19 24 11/22/2023 COLOG UARD cologuard result Cancel led - Duplic ate Order not applic able Not Available [facility] (Cologuard Orders Only) [address], [place], [address], 11/22/2023 13:59:23 12/17/19 24 12/18/2023 LIPID PANEL , STAND JAMES cholesterol, total 155 mg/dL <200 normal Not Available [facility] [address], [address], 12/18/2023 14:18:14 12/17/19 24 12/18/2023 LIPID PANEL , STAND JAMES HDL cholesterol 54 mg/dL > or = 50 normal Not Available [facility] [address], [address], 12/18/2023 14:18:14 12/17/19 24 12/18/2023 LIPID PANEL , STAND JAMES triglyceride s 110 mg/dL <150 normal Not Available [facility] [address], [address], 12/18/2023 14:18:14 12/17/19 24 12/18/2023 LIPID PANEL [...] calcu lated using the Dasia n-Hop kins clark saenz n, which is a valid ated novel radha peterson accur acy than the Fried iliana equat ion in the estim ation of LDL-C . Dasia ruby SS et al. MADAN. 2013; 310(1 9): 2061- 2068 (http ://ed ucati on.Qu estDi agnos tics. com/f aq/FA Q164) Not Available [address] [address] [place], [address], 12/18/2023 14:18:14 12/17/19 24 12/18/2023 LIPID PANEL , STAND JAMES chol/HDLC ratio 2.9 (calc ) <5.0 normal Not Available [address] [address] [place], [address], 12/18/2023 14:18:14 12/17/19 24 12/18/2023 LIPID PANEL , STAND JAMES non HDL cholesterol 101 mg/dL _(sabas c) <130 normal For patie nts with diabe yue plus 1 major ASCVD risk facto r, treat ing to a non-H DL-C goal of <100 mg/dL (LDL- C of <70 mg/dL ) is consi dered a thera peuti c optio n. Not Available [address] [address] [place], [address], 12/18/2023 14:18:14 12/17/19 24 12/18/2023 TSH+F REE T4 TSH 2.31 mIU/L 0.40-4 .50 normal Not Available [address] [address] [place], [address], 12/18/2023 14:18:17 12/17/1912/18/2023 TSH+F REE T4 T4, free 1.1 NG/dL 0.8-1. 8 normal Not Available [address] [address] [place], [address], 12/18/2023 14:18:17 12/17/19 24 12/18/2023 COMPR EHENS SKIP METAB OLIC PANEL glucose 131 mg/dL 65-99 high Fasti ng refer ence inter beau For someo ne witho ut known diabe yue, a gluco se value >125 mg/dL indic ates that they may have diabe yue and this shoul d be confi rmed with a follo w-up test. Not Available [address], [address], 12/18/2023 14:18:18 12/17/19 24 12/18/2023 COMPR EHENS SKIP METAB OLIC PANEL urea nitrogen (BUN) 16 mg/dL 7-25 normal Not Available [address], [address], 12/18/2023 14:18:18 12/17/19 24 12/18/2023 COMPR EHENS SKIP METAB OLIC PANEL creatinine 0.64 mg/dL 0.50-1 .03 normal Not Available [address], [address], 12/18/2023 14:18:18 12/17/19 24 12/18/2023 COMPR EHENS SKIP METAB OLIC PANEL eGFR 103 mL/mi n/1.7 3m2 > or = 60 normal Not Available [address], [address], 12/18/2023 14:18:18 12/17/19 24 12/18/2023 COMPR EHENS SKIP METAB OLIC PANEL BUN/creatini ne ratio SEE NOTE: (calc ) 6-22 Not Repor rivera: BUN and Creat inine are withi n refer ence range . Not Available [address], [address], 12/18/2023 14:18:18 12/17/19 24 12/18/2023 COMPR EHENS SKIP METAB OLIC PANEL sodium 138 mmol/ L 135-14 6 normal Not Available [address], [address], 12/18/2023 14:18:18 12/17/19 24 12/18/2023 COMPR EHENS SKIP METAB OLIC PANEL potassium 4.1 mmol/ L 3.5-5. 3 normal Not Available [address] [place], [address], 12/18/2023 14:18:18 12/17/19 24 12/18/2023 COMPR EHENS SKIP METAB OLIC PANEL chloride 105 mmol/ L 98-110 normal Not Available [address], [address], 12/18/2023 14:18:18 12/17/19 24 12/18/2023 COMPR EHENS SKIP METAB OLIC PANEL carbon dioxide 25 mmol/ L 20-32 normal Not Available [facility] [address], [address], 12/18/2023 14:18:18 12/17/19 24 12/18/2023 COMPR EHENS SKIP METAB OLIC PANEL calcium 9.1 mg/dL 8.6-10 .4 normal Not Available [address], [address], 12/18/2023 14:18:18 12/17/19 24 12/18/2023 COMPR EHENS SKIP METAB OLIC PANEL protein, total 7.1 g/dL 6.1-8. 1 normal Not Available [address], [address], 12/18/2023 14:18:18 12/17/19 24 12/18/2023 COMPR EHENS SKIP METAB OLIC PANEL albumin 3.9 g/dL 3.6-5. 1 normal Not Available [address], [address], 12/18/2023 14:18:18 12/17/19 24 12/18/2023 COMPR EHENS SKIP METAB OLIC PANEL globulin 3.2 g/dL_ (calc ) 1.9-3. 7 normal Not Available [facility] [address], [address], 12/18/2023 14:18:18 12/17/19 24 12/18/2023 COMPR EHENS SKIP METAB OLIC PANEL albumin/glob ulin ratio 1.2 (calc ) 1.0-2. 5 normal Not Available [address], [address], 12/18/2023 14:18:18 12/17/19 24 12/18/2023 COMPR EHENS SKIP METAB OLIC PANEL bilirubin, total 0.6 mg/dL 0.2-1. 2 normal Not Available [address] [address] [place], [address], 12/18/2023 14:18:18 12/17/19 24 12/18/2023 COMPR EHENS SKIP METAB OLIC PANEL alkaline phosphatase 109 U/L 37-153 normal Not Available [address] [address] [place], [address], 12/18/2023 14:18:18 12/17/19 24 12/18/2023 COMPR EHENS SKIP METAB OLIC PANEL AST 27 U/L 10-35 normal Not Available [address], [address], 12/18/2023 14:18:18 12/17/19 24 12/18/2023 COMPR EHENS SKIP METAB OLIC PANEL ALT 30 U/L 6-29 high Not Available [address], [address], 12/18/2023 14:18:18 12/17/19 24 12/18/2023 HEMOG LOBIN [...] This test was perfo rmed on the Last Guide nirav c503 platf orm. Effec tive , a canela e in test platf orms from the Abbot t Ar[facility] tect to the Allen nirav c503 may have shift ed HbA1c resul ts hima red to histo rical resul ts. Based on labor atory valid ation testi ng condu cted at [facility] , the Allen platf orm relat skip to the [facility] platf orm had an avera ge incre ase in HbA1c value of < or = 0.3%. This diffe rence is withi n accep rivera varia bilit y estab lishe d by the Natio nal Glyco hemog lobin Stand geoffdiz ation Progr am. Note that not all indiv idual s will have had a shift in their resul ts and direc t hima rison s betwe en histo rical and curre nt resul ts for testi ng condu cted on diffe rent platf orms is not recom edith d. Not Available [facility] [address] [place], [address], 12/18/2023 14:18:19 05/04/20 24 05/04/2024 HEMOG LOBIN A1C hemoglobin A1C 6.1 %_of_ [...] diabe yue for child stew. Not Available [facility] [address] [place], [address], 05/04/2024 23:18:12 05/22/2005/22/2024 urina lysis , dipst ick Leukocytes (reference range: negative zarina/ l) Large Not Available [address], [address], 05/22/2024 08:52:40 05/22/2005/22/2024 urina lysis , dipst ick Nitrite (reference rage: negative mg/dl) negati ve Not Available [address], [address], 05/22/2024 08:52:40 05/22/2005/22/2024 urina lysis , dipst ick Urobilinogen (reference range: 0.2-1 mg/dl) 0.2 Not Available [address], [address], 05/22/2024 08:52:40 05/22/2005/22/2024 urina lysis , dipst ick Protein (reference range: negative mg/dl) Negati ve Not Available [address], [address], 05/22/2024 08:52:40 05/22/20 24 05/22/2024 urina lysis , dipst ick pH (reference range: 5-7) 5.0 Not Available [facility], [address], 05/22/2024 08:52:40 05/22/2005/22/2024 urina lysis , dipst ick Blood (reference range: negative Demario/ l) Small Not Available [address], [address], 05/22/2024 08:52:40 05/22/2005/22/2024 urina lysis , dipst ick Specific Viola (reference range: 1.005-1.030) 1.000 Not Available [address], [address], 05/22/2024 08:52:40 05/22/2005/22/2024 urina lysis , dipst ick Ketone (reference range: negative mg/dl) Trace Not Available [address], [address], 05/22/2024 08:52:40 05/22/2005/22/2024 urina lysis , dipst ick Bilirubin (reference range: negative mg/dl) Negati ve Not Available [address], [address], 05/22/2024 08:52:40 05/22/2005/22/2024 urina lysis , dipst ick Glucose (reference range: negative mg/dl) Negati ve Not Available [address], [address], 05/22/2024 08:52:40 05/22/2005/22/2024 urina lysis , dipst ick Appearance Clear Not Available [address], [address], 05/22/2024 08:52:40 05/22/20 24 05/22/2024 urina lysis , dipst ick Color Dark Yellow Not Available [address], [address], 05/22/2024 08:52:40 08/29/19 25 08/29/2024 urina lysis , dipst ick Leukocytes (reference range: negative zarina/ l) Small Not Available [address], [address], 08/29/2024 09:12:47 08/29/19 25 08/29/2024 urina lysis , dipst ick Nitrite (reference rage: negative mg/dl) negati ve Not Available [address], [address], 08/29/2024 09:12:47 08/29/19 25 08/29/2024 urina lysis , dipst ick Urobilinogen (reference range: 0.2-1 mg/dl) 0.2 Not Available [address], [address], 08/29/2024 09:12:47 08/29/19 25 08/29/2024 urina lysis , dipst ick Protein (reference range: negative mg/dl) Negati ve Not Available [address], [address], 08/29/2024 09:12:47 08/29/19 25 08/29/2024 urina lysis , dipst ick pH (reference range: 5-7) 5.0 Not Available [address], [address], 08/29/2024 09:12:47 08/29/1908/29/2024 urina lysis , dipst ick Blood (reference range: negative Demario/ l) Non-He molyze d: Trace Not Available [address], [address], 08/29/2024 09:12:47 08/29/1908/29/2024 urina lysis , dipst ick Specific Viola (reference range: 1.005-1.030) 1.005 Not Available [address], [address], 08/29/2024 09:12:47 08/29/1908/29/2024 urina lysis , dipst ick Ketone (reference range: negative mg/dl) Negati ve Not Available [address], [address], 08/29/2024 09:12:47 08/29/1908/29/2024 urina lysis , dipst ick Bilirubin (reference range: negative mg/dl) Negati ve Not Available [address], [address], 08/29/2024 09:12:47 08/29/1908/29/2024 urina lysis , dipst ick Glucose (reference range: negative mg/dl) Negati ve Not Available [address], [address], 08/29/2024 09:12:47 08/29/1908/29/2024 urina lysis , dipst ick Appearance Clear Not Available [address], [address], 08/29/2024 09:12:47 08/29/1925 0808/29/2024 urina lysis , dipst ick Color Pale Yellow Not Available [facility] [address] [facility], [place], [address], 08/29/2024 09:12:47 06/07/20 24 06/07/2024 MAMMO , scree mitzy, digit al, bilat eral No observ ation record ed. [facility] [address], [place], [address], 06/07/2024 17:42:04 09/05/19 25 09/04/2024 CT, abdom en + pelvi s, w/ contr ast No observ ation record ed. [address] [address], [place], [address], 09/05/2024 08:52:54 09/07/19 25 09/07/2024 US, bladd er No observ ation record ed. [address] [address], [place], [address], 09/11/2024 12:41:24 09/10/19 25 09/10/2024 imagi ng/di agnos tic resul t No observ ation record ed. [address] [address], [place], [address], 09/11/2024 11:06:53 Result Notes None recorded. Problems Name Problem SNOMED Code Status Onset Date Resolution Date Notes Provider Name and Address Organization Details Recorded Time Hyperkalem ia 83345202 Completed 10/26/2024 AUGEDA Howe [address], [place], [address] , [place] - [facility] 5 09:56:46 Mammograph y abnormal 990080991 Active Not Available [employer] 3 08:10:19 Increased blood pressure 44471432 Completed 10/26/2024 AGUEDA Howe [address], [address], [place], [address] , [employer] 5 09:56:46 Menorrhagi a 795146387 Active Not Available [facility] 3 08:10:19 Dizziness 268601521 Completed 10/26/2024 AGUEDA Howe [address], [address], [place], [address] , [employer] 5 09:56:46 History of polyp of colon 566735631 Completed 201710/26/2024 AGUEDA Howe [address], [address], [place], [address] , [employer] 5 09:56:46 Hyperlipid emia 58367548 Active Not Available [facility] 3 08:10:19 Essential hypertensi on 40432684 Active 2021 Not Available [facility] 3 08:10:19 Increased liver function 25798702 Active Not Available [facility] 3 08:10:20 Snoring 05315180 Active Not Available [facility] 3 08:10:20 Candidiasi s 77982791 Completed 10/26/2024 AGUEDA Howe [address], [address], [place], [address] , [employer] 5 09:56:46 Urge incontinen ce of urine 28583469 Completed 10/26/2024 AGUEDA Howe [address], [address], [place], [address] , [employer] [facility] 5 09:56:46 Benign essential hypertensi on 6506758 Completed 202210/26/2024 AGUEDA Howe [address], [address], [place], [address] , [facility] [facility] [employer] [facility] 5 09:56:46 Acute otitis externa 62872782 Completed 202210/26/2024 AGUEDA Howe [address], [address], [place], [address] , [employer] [place] [facility] 5 09:56:46 Obese 660229663 Active 2022 Jackie Justin NP [address], [address], [place], [address] , [place] [facility] 3 13:49:57 Prediabete s 586366575 Completed 202205/22/2024 AGUEDA Howe [address], [address], [place], [address] , [employer] [place] [facility] [employer] 4 08:59:32 Hyperglyce kamaljit 26802427 Completed 202205/22/2024 AGUEDA Howe [address], [address], [place], [address] , [employer] [place] [facility] [facility] 4 08:59:29 Pruritic rash 59025552 Completed 202210/26/2024 AGUEDA Howe [address], [address], [place], [address] , [employer] [place] [facility] [facility] 5 09:56:46 Type 2 diabetes mellitus 11230751 Active 2023 AGUEDA Howe [address], [address], [place], [address] , [employer] [place] [facility] [employer] 4 08:56:18 Urinary symptoms 681733912 Completed 202310/26/2024 AGUEDA Howe [address], [address], [place], [address] , [employer] [place] [facility] [employer] 5 09:56:46 Acute cystitis 99648988 Completed 202410/26/2024 AGUEDA Howe [address], [address], [place], [address] , [employer] [place] [facility] [employer] 09:56:46 Dysfunctio n of urinary bladder 85222911 Active 2024 AGUEDA Howe [address] [facility], [facility] [address], [place], [address] , [facility] [employer] [facility] 09:56:59 Problem Notes None recorded. Procedures Surgical History Date Name Laterality Status Provider Name and Address Organization Details Recorded Time 10/27/19 25 Cerumen Removal completed AGUEDA Howe [address] [facility] [address], [facility] [address], [place], [address], [facility] [employer] [facility] 10/26/2024 10:24:46 08/29/19 25 Date of Last Pap Smear completed Jackie Manuel RN [facility] [employer] [facility] 08/29/2024 09:04:07 06/01/20 24 Most Recent Mammogram completed Jackie Manuel RN [facility] [employer] [facility] 08/29/2024 09:03:06 08/01/19 12 Date of Last Colonoscopy completed Not Available [facility] 09/29/2022 08:05:51 Cholecystectomy completed Not Available [facility] 09/29/2022 08:05:51 Tubal Ligation completed Not Available [facility] 09/29/2022 08:05:51 Imaging Results Imaging Date Name Status LastModified by Organiz ation Details LastModified Time 06/07/2024 MAMMO, screening, digital, bilateral completed [facility] [address] [place], [address], 06/07/2024 17:42:04 09/04/2024 CT, abdomen + pelvis, w/ contrast completed [address], [address], 09/05/2024 08:52:54 09/07/2024 US, bladder completed [address], [address], 09/11/2024 12:41:24 09/10/2024 imaging/diagno stic result completed [address], [address], 09/11/2024 11:06:53 Procedure Notes None recorded. Medical Equipment None [...] completed Not Available Not Available Not Available meloxicam 7.5 mg tablet 06/08 completed Not [...] administ ered by the provider 10/[address] [facility]: [phone] Not Available Not Available Not Available meclizine [...] Not Available Not Available No t Available nitrofura ntoin monohydra te/macroc rystals 100 mg capsule Take 1 capsule every 12 hours by oral route as directed for 3 days. 10/26 completed Not Available Not Available Not Available solifenac in 5 mg tablet TAKE 1 TABLET BY MOUTH IN THE MORNING 10/26 completed Not Available Not Available Not Available chlorhexi dine gluconate 0.12 % mouthwash 03/23 completed Not Available Not Available Not Available lidocaine (PF) 10 mg/mL (1 %) injection solution In office injectio n administ ered by the provider 10/[address] [facility]: 0409-427 6-17 Not Available Not Available Not Available Vitals Date Recorded Body height Body mass index (BMI) Body weight Body temperature Heart rate Respiratory rate Oxygen saturation Oxygen saturation in Arterial blood by Pulse oximetry Pain severity - 0-10 verbal numeric rating [Score] - Reported Provider Name and Address Organization Details Last Updated DateTime 4 160.02 cm 45.9 kg/m2 839335. 42 g 96.5 [degF] 66 /min 20 /min 98 % 98 % 0 Jackie Manuel RN [facility] [employer] [facility] 4 09:27:16 Date Recorded Systolic blood pressure Diastolic blood pressure Provider Name and Address Organization Details Last Updated DateTime 11/21/2023 138 mm[Hg] 82 mm[Hg] Shelly Gardiner, SOCIAL SERVICE COORDINATOR [address] [facility], [facility] [address], [place], [address], [facility] [employer] [facility] 11/21/2023 09:47:27 Date Recorded Body height Body mass index (BMI) Body weight Body temperature Heart rate Oxygen saturation Oxygen saturation in Arterial blood by Pulse oximetry Systolic blood pressure Diastolic blood pressure Provider Name and Address Organization Details Last Updated DateTime 4 160.02 cm 45.5 kg/m2 606667. 59 g 97.3 [degF] 70 /min 97 % 97 % 150 mm[Hg] 87 mm[Hg] Racquel Salinas MA [facility] [employer] [facility] 4 08:40:26 Date Recorded Body height Body mass index (BMI) Body weight Body temperature Heart rate Respiratory rate Oxygen saturation Oxygen saturation in Arterial blood by Pulse oximetry Pain severity - 0-10 verbal numeric rating [Score] - Reported Systolic blood pressure Diastolic blood pressure Provider Name and Address Organization Details Last Updated DateTime 4 160.02 cm 42.2 kg/m2 182416. 43 g 97.3 [degF] 63 /min 20 /min 97 % 97 % 0 148 mm[Hg] 84 mm[Hg] Jackie Manuel RN [facility] [employer] [facility] 4 08:40:33 Date Recorded Body height Body mass index (BMI) Body weight Body temperature Heart rate Respiratory rate Oxygen saturation Oxygen saturation in Arterial blood by Pulse oximetry Pain severity - 0-10 verbal numeric rating [Score] - Reported Systolic blood pressure Diastolic blood pressure Provider Name and Address Organization Details Last Updated DateTime 5 160.02 cm 43.5 kg/m2 476233. 88 g 97.5 [degF] 71 /min 20 /min 97 % 97 % 0 142 mm[Hg] 86 mm[Hg] Jackie Manuel RN [facility] [employer] [facility] 5 09:02:13 Date Recorded Body height Body mass index (BMI) Body weight Body temperature Heart rate Respiratory rate Oxygen saturation Oxygen saturation in Arterial blood by Pulse oximetry Pain severity - 0-10 verbal numeric rating [Score] - Reported Systolic blood pressure Diastolic blood pressure Provider Name and Address Organization Details Last Updated DateTime 5 160.02 cm 41.6 kg/m2 861519. 56 g 97.2 [degF] 77 /min 20 /min 99 % 99 % 0 170 mm[Hg] 86 mm[Hg] Jackie Manuel RN [facility] [employer] [facility] 5 09:45:06 Social History Question Answer Notes LastModified by Organizat ion Details LastModified Time Tobacco Smoking Status Never Smoker Jackie Manuel RN [facility], [facility] [employer] [facility] 04/27/2023 14:30:54 Do You Have An Advance Directive? Yes Information not available 04/27/2023 What Is Your Level Of Alcohol Consumption? 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 Yes Information not available 04/27/2023 How Many [...] Anxious, Or Unable To Sleep At Night)? [id number] Information not available 10/26/2024 Do You Use Sunscreen Routinely? No Information not available 04/27/2023 Have You Recently Traveled Abroad? No Information not available 04/27/2023 Do You Or Have You Ever Used Any Other Forms Of Tobacco Or Nicotine? No [email or web address] Information not available 04/27/2023 Sex: Female Functional Status Question Answer Note LastModified by Organizat ion Details LastModified Time What is your exercise level? Occasional Information not available 04/27/2023 Mental Status None recorded. Family History Relationship Description Onset Age of this Age Resolved Age Notes LastModified by Organization Details LastModified Time Father Heart disease [id number] Not available 09/29/2022 08:05:55 Father Diabetes mellitus [id number] Not available 09/29/2022 08:05:55 Father Family history of stroke [email or web address] Not available 2024 09:35:09 Father Essential hypertension [email or web address] Not available 09:35:09 Mother Heart disease [id number].143 [id number] Not available 09/29/2022 08:05:55 Mother Family history of stroke [email or web address] Not available 2024 09:35:09 Mother Essential hypertension [email or web address] Not available 09:35:09 Brother Diabetes mellitus [id number] Not available 09/29/2022 08:05:55 Sister Diabetes mellitus [id number] Not available 09/29/2022 08:05:55 Medical History Condition Response KIDNEY DISEASE Y DIABETES, TYPE Y OBESITY Y HYPERTENSION Y HIGH CHOLESTEROL / HYPERLIPIDEMIA [...] quadrivalent, PF [address] [facility], [place] LOC&ALL 05/18/2023 10:20:09 Influenza, split virus, trivalent, preservative 5 completed Not Available [facility], [facility] 09/29/2022 08:15:11 Influenza, split virus, trivalent, preservative 4 completed Not Available [facility] 09/29/2022 08:15:12 Influenza, split virus, trivalent, preservative 3 completed Not Available [facility], [facility] 09/29/2022 08:15:12 Tdap 8 completed Not Available [facility], [facility] 09/29/2022 08:15:12 Past Encounters Encounter ID Performer Location Encounter Start Date Encounter Closed Date Diagnosis/Indication Diagnosis SNOMED-CT Code Diagnosis ICD10 Code Diagnosis Note [id number] S[facility] [address] 11/11/2020 00:00:00 11/11/2020 18:37:33 [id number] [facility] [address] [place] [address] 06/08/2021 00:00:00 06/08/2021 10:22:53 [id number] [facility] [address] [place] [address] 07/07/2021 00:00:00 07/07/2021 09:56:[id number] [address] 10/29/2021 00:00:00 10/29/2021 08:43:[id number] [address] 11/19/2021 00:00:00 11/19/2021 08:49:[id number] [address] 01/07/2022 00:00:00 01/07/2022 09:42:10 [id number] Jackie Justin NP [address] [address] 10/08/2022 15:06:03 10/08/2022 15:55:49 Essential hypertension 13948786 I10 Losartan 50 mg po daily Hyperlipidemia 69047568 E78.5 Atorvastat in 20 mg po daily. Anemia screening 4391176 07 Z13.0 Diabetes m ellitus screening 366821704 Z13.1 Thyroid di sorder screening 318352026 Z13.29 Acute otitis externa 302 36807 H60.509 CiproDex 4 gtts bilateral ears for 7 days. [id number] Jackie Justin NP [address] [address] 04/27/2023 14:07:02 04/27/2023 15:26:02 Adult health examination 678190796 Z00.00 Encouraged well balanced meals, active lifestyle, and routine vision and dental appts. Essential hypertension 68062785 I10 Losartan 50 mg po daily< 2 gm sodium diet. Hyperlipidemia 84464557 E78.5 Atorvastat in 20 mg po daily.Low fat diet. Obese 379582533 E66.9 Diet and exercise to reduce BMI closer to <25. Screening for malignant neoplasm of breast 649866249 Z12.39 mammogram ordered 04/27/23 Screening for malignant neoplasm of colon 758318763 Z12.11 GI referral for Colonoscop y Last in 2011. Prediabetes 846741466 R7 3.03 A1C October 2022 6.2 with fasting glucose 88.A1C and CMP ordered. Hyperglycemia 50232281 R 73.9 A1C and CMP Pruritic rash 98615004 L 28.2 right ear- triamcinol one cream [id number] Jackie Justin NP [address] [address] 05/18/2023 08:22:29 05/18/2023 09:04:36 Screening for malignant neoplasm of colon 638688959 Z12.11 GI referral for Colonoscop y Last in 2011.Colog uard ordered 05/18/23. Gynecologi c examination 03923756 Z01.419 Encouraged well balanced meals, active lifestyle, and routine vision and dental appts. Administra tion of influenza vaccine 54072075 Z23 [id number] AGUEDA Howe [address] [address] 11/21/2023 09:13:23 11/21/2023 10:01:35 Screening for malignant neoplasm of colon 392300244 Z12.11 Hyperlipidemia 77635285 E78.5 Prediabetes 931839319 R7 3.03 Obesity 463738978 E66.9 Screening mammography 24 584468 Z12.31 [id number] AGUEDA Howe [address] [address] 12/28/2023 08:24:37 12/28/2023 09:03:51 Type 2 diabetes mellitus 28954169 E11.9 Will consider GLP1 after next A1C [id number] AGUEDA Howe [facility] [address] 05/22/2024 08:25:35 05/22/2024 09:03:57 Type 2 diabetes mellitus 74529521 E11.9 A1C decreasing with diet and lifestyle changes. Currently taking Metformin 500 mg daily.Will continue this regimen Urinary symptoms 6340450 08 R39.9 Essential hypertension 85570004 I10 Hyperlipidemia 93075507 E78.5 [id number] AGUEDA Howe [facility] [address] 08/29/2024 08:41:07 08/29/2024 09:25:53 Gynecologic examination 56811201 Z01.419 Normal mammo, 06/07/2024 Patient does annual PAP for peace of mindNo concerns todayDiscu ssed vaginal hygiene and safe sex practicesP AP sample collected and sent to lab Acute cystitis 14799588 N30.01 Recurrent, will recheck dip 1 week post abx [id number] AGUEDA Howe [facility] [address] 10/26/2024 09:18:58 10/26/2024 10:32:46 Dysfunction of urinary bladder 70063384 R39.89 Requires catheteriz ation. Has establish with urology.CT Urogram scheduled for 11/02/24MRI spine scheduled for 11/05/24 Type 2 mynor betes mellitus 00643817 E11.9 A1C decreasing with diet and lifestyle changes. Currently taking Metformin 500 mg daily.Will continue this regimen Essential hypertension 96111284 I10 Elevated today, will monitor BP at home and FU in 3 months. Health Concerns Section Related Observation LastModified by Organization Detai ls LastModified Time None Recorded Concern Status LastModified by Organization Details LastModified Time None Recorded Advance Directives Directive Y: Payers Encounter Date Sequence Insurance Name Policy Number Policy Gaytan Covered Member ID Gaytan Member ID Guarantor Name 11/21/2023 1 [employer] [id number] Farzaneh Kamaranor [id number] Farzaneh Kamaranor 12/28/2023 1 [facility] CHO[facility] PL[facility] [id number] Farzaneh Kamaranor [id number] Farzaneh Kamaranor 05/22/2024 1 [facility] - CHO[facility] [employer] [id number] Farzaneh Kamaranor [id number] Farzaneh Kamaranor 08/29/2024 1 [employer] ([employer]) [id number] Farzaneh Kamaranor [id number] Farzaneh Kamaranor 10/26/2024 1 [employer] ([employer]) [id number] Farzaneh Kamaranor [id number] Farzaneh Kamaranor Notes Date Note Type Note Provider Name and Address Organization Details Recorded Time 11/21/2023 text/html Farzaneh Ng is a 58 [...] shot: OVID vaccines: 2020, 2020TDaP: 11/2017Shingles vaccines: recommendedMammogram: 05/13/2023WWE: oloscopy: cologuard ordered today AGUEDA Howe [address] [facility], [facility] [address], [place], [address], [facility] 11/21/2023 09:56:51 12/28/2023 text/html Farzaneh Ng is [...] sugars. Current LDL 80. AGUEDA Howe [address] [employer], [place], [address], [employer] 12/28/2023 09:02:22 05/22/2024 text/html Farzaneh Ng is [...] urine BP recheck 138/74 AGUEDA Howe [address], [place], [address], [employer] 05/22/2024 09:01:24 08/29/2024 text/html Pap/PelvicReport ed bypatient.Context:flex t for screening pap/pelvic/breast exam; no gynecologic complaints Associated Factors:no risk factor for cervical cancer; no history of ALICIA II/III; no abnormal pap smears; at least three pap smears in past 7 years; low risk sexual history; no VALERIE exposure; up to date mammogramNotes:Concer ns today with pain with urination, CVA pain, incomplete emptying and increased frequency AGUEDA Howe [address], [place], [address], [facility] [employer] [facility] 08/29/2024 09:29:32 10/26/2024 text/html Farzaneh Ng is a 59 year old female patient here today to follow up on recent urinary issues Was hospitalized at [facility] in September for bladder dysfunction, renal failure, and hydro nephritis. She followed up with urology and is scheduled for a cystoscopy. She is now self catheterizing 3-4 times per day. She notes that she is also now urinating naturally multiple times again. Notes minimal urine output with catheterization now.She is also scheduled for an MRI Her BP today is evaluated at 170/86, repeat 160/92. She is still taking losartan 50 mg. Type 2 DM - last A1C 6.1 05/04/2024 Shelly Gardiner, AGUEDA [address] [facility], [place], [address], [facility] 10/26/2024 10:24:52 OBGyn Episode No OBEpisode recorded.
--- NOTE | 2024-11-02 07:16 | WPDHPUPDATE1 ---
History and Physical Update Update Date/Time: 11/02/24 07:16 History and Physical has been reviewed, including an updated exam of the patient. There are NO changes in the patient's condition. Risks, benefits, and alternatives have been discussed and questions answered. Patient agrees to proceed with procedure.
[2024-11-02 08:53] LABS: Glucose Point of Care 125 mg/dl (65-105)
[2024-11-02 09:00] VITALS: BP 146/74; PULSE 81; RESP 14; TEMP 36.8; O2SAT 100
[2024-11-02] MEDS: LACTATED RINGERS 1,000 ML 30 ML IV CONT (09:00)
--- NOTE | 2024-11-02 09:44 | P.PNAN_ITS ---
Anes - Initial Pre Proc Eval Procedure: Operation Date: 11/02/24 10:15 Proposed Procedures p Cystoscopy, Bilateral Retrograde Pyelogram - Santiago Covarrubias MD Date/Time: 11/02/24 09:44 Surgeon: Santiago Covarrubias MD Pre Op Diagnosis: retention of urine Patient Data Age: 59 Gender: F Height: 1.6 m Weight: 104 kg Allergies Allergy/AdvReac Type Severity Reaction Status Date / Time No Known Allergies Allergy Verified 10/22/24 13:16 Home Medications ?Medication ?Instructions ?Recorded ?Confirmed ?Type atorvastatin 20 mg tablet 20 mg PO QPM 10/22/21 10/22/24 History losartan 50 mg tablet 50 mg PO DAILY 09/04/24 10/22/24 History metformin 500 mg tablet,extended 500 mg PO QPM 09/04/24 10/22/24 History release 24 hr Laboratory Tests 11/02/24 08:50 POC Capillary Glucose 125 H mg/dl (65-105) Patient hx anesthesia problems: other (Pt reports difficult time w emergence after GA approx 25 years ago after gall bladder sx, shivering and shaking, we think in the PACU. ) Family hx anesthesia problems: none Results Review: All pre-operative results and documents have been reviewed as part of the pre- operative evaluation. [facility] Past Medical History Medical History Hyperlipidemia Hypertension Diabetes mellitus Family History Family History Mother Hypertension Father Cerebrovascular accident Social History Social History Years smoked: 1 Smoking status: Former smoker Tobacco type: cigarettes Alcohol intake: current Alcohol use details: RARE GLASS OF WINE Substance use: never Substance use type: does not use Do You Feel Safe in your Home?: No Lack of Transportation: No Lack of Food: Never True Current Housing: I Have Housing Concerned About Future Housing: No Difficulty Paying Gas/Electric Bills: No Difficulty Paying for Meds: No Currently Unemployed: No Education: Trade/Vocational Certificate Difficulty w/ Childcare or Family Care: No Living arrangements: with family Spiritual care concerns: No Anes - Eval Final PreProcedure Day of Procedure 11/02/24 09:44 Patient weight: morbidly obese Lungs: normal air movement Airway: Mallampati scale class II Neurological: alert and oriented Last oral intake: >/= 8 hours ASA classification: III Emergent: no Anesthetic plan: proceed Anesthesia type and monitoring: general LMA and standard monitoring Results Review: All pre-operative results and documents have been reviewed as part of the pre- operative evaluation. HTN, hyperlipidemia, DM fsbs 125. Informed Consent: The patient's anesthetic plan and its attendant risks and benefits were discussed with the patient/family/POA. Questions were solicited and answers provided to the satisfaction of the patient/family/POA.
[2024-11-02] MEDS: ceFAZolin 2 GM/D5W 50 ML 2 GM/50 ML BAG IVPB (09:46)
[2024-11-02] MEDS: LIDOCAINE 2% GEL UROJET 10 ML PKG MUCOUS MEM (10:01)
[2024-11-02 10:07] VITALS: BP 127/52; PULSE 77; RESP 14; O2SAT 100
--- NOTE | 2024-11-02 10:14 | W.PM.PROC2 ---
Procedure Note - Detailed Date of Procedure 11/02/24 Pre-op Diagnosis retention of urine Hydronephrosis Post-op Diagnosis Same Procedure Performed Cystoscopy with bilateral retrograde pyelogram Surgeon Santiago Covarrubias MD Anesthesia MAC and Local (Uro jet) Findings Moderate right hydronephrosis, mild left hydronephrosis, prompt draining of the collecting systems Description of Procedure She was correctly identified. Informed consent obtained. From the operating room. She was given monitored anesthesia care. She was prepped and draped sterile fashion. Time-out performed. Uro jet was applied. Cystoscopy revealed a normal capacity bladder. There was some redness in the bladder consistent with self catheterization. She had moderate trabeculations and a few cellules. Urethra was orthotopic without abnormalities. No significant prolapse. I did retrograde pyelogram on the right. There was no extravasation. There was moderate hydroureteronephrosis all the way down to the bladder. There was no filling defect. There was prompt drainage of the collecting system. I then repeated a retrograde pyelogram on the patient's left. There was no extravasation. There was mild hydronephrosis. No filling defect. There was prompt drainage of the left collecting system as well. At the conclusion her bladder was drained and she was taken to the recovery room in stable condition Estimated Blood Loss 0 Drains No Packing No Pathology None sent Complications No immediate complications Condition Stable Disposition PACU
[2024-11-02 10:15] LABS: Glucose Point of Care 107 mg/dl (65-105)
[2024-11-02 10:37] VITALS: BP 125/54; PULSE 71
[2024-11-02 11:07] VITALS: BP 132/83; PULSE 69
== END 2024-11-02 11:10 | disposition home or self-care (01) ==
PROVIDERS: Visit Provider Urology
PROC: (CPT 52352; principal; 2024-11-02 10:15)
DX: N13.30 Unspecified hydronephrosis (principal); R33.8 Other retention of urine; E11.9 Type 2 diabetes mellitus without complications; Z87.891 Personal history of nicotine dependence; E66.01 Morbid (severe) obesity due to excess calories; Z68.41 Body mass index [BMI] 40.0-44.9, adult
CPT/HCPCS: 52005; 74420; 82948; C1758; C1769; J0690; J2003; J2250; J2405; J2704; J7120; Q9966

== ENCOUNTER 2024-11-05 08:17 | Outpatient (CLI) | payer OTHER, SELFPAY ==
--- NOTE | ~2024-11-05 | MR_ITS ---
Procedure: MR lumbar spine wo/w con Ordering provider: Santiago Covarrubias MD History:59 years Female with . other retention of urine . Comparison: None. Technique: MRI lumbar spine with and without contrast. 20 mL of ProHance was given IV. FINDINGS: CONUS MEDULLARIS: Normal in position and appearance with no abnormal enhancement. The conus ends at t he level of L1. LUMBAR VERTEBRAL BODIES: Normal height and alignment. no compression fracture. Normal marrow signal. No abnormal marrow enhancement. Cyst is seen opposite S2. DISK SPACES: Normal. T12-L1: No stenosis. L1-L2: No stenosis. Slight thickening of the ligamenta flava. L2-L3: No stenosis. L3-L4: No stenosis. L4-L5: No stenosis. Central disc protrusion. Bilateral narrowing of the foramina. No definite root compression Bilateral facet joint disease. L5-S1: No stenosis. PARASPINOUS SOFT TISSUES: Normal. No abnormal paraspinous enhancement. IMPRESSION: 1. No acute osseous abnormality. 2. Mild central disc protrusion at the level of L4-L5 with no significant spinal canal stenosis or d efinite root compression. 3. No abnormal enhancement Reviewed, dictated and finalized at location A. IMPRESSION: 1. No acute osseous abnormality. 2. Mild central disc protrusion at the level of L4-L5 with no significant spin al canal stenosis or definite root compression. 3. No abnormal enhancement
--- OUTSIDE RECORDS SUMMARY | 2024-11-05 08:34 | XMS_ITS | Data Portability ---
Author Organization [facility] [employer], Main Office Address [address] [place] [address] Assessment No assessment recorded. Plan of Treatment Reminders Order Date Submit Date Provider Last Modified By Organization Details Last Modified Time Details Appointments Follow Up 15 2024 07:30A AGUEDA Porter Not available Not available Not available Lab HbA1c (hemoglob in A1c), blood 2024 025 [facility], [address], [address], [place], [address], 11/02/2024 08:04:27 renal function panel, serum 2024 025 ANGELES [facility], [address], [place], [address], 10/26/2024 19:34:30 pap, IG + reflex HR HPV 2024 025 [place], [address], [place], [address], 09/03/2024 23:15:07 urinalysi s, dipstick 2024 025 [facility], [address] [place] [address], [address], 08/29/2024 09:31:03 urinalysi s, dipstick 2023 024 [facility], [address] [place] [address], [address], 05/22/2024 09:17:25 HbA1c (hemoglob in A1c), blood 2023 024 [facility], [address], [address], [place], [address], 03/26/2024 08:23:58 TSH + free T4, serum 2023 024 [facility], [address], [place], [address], 11/28/2023 08:28:52 HbA1c (hemoglob in A1c), blood 2023 024 [facility], [address], [address], [place], [address], 11/28/2023 08:28:52 noninvasi ve colorecta l cancer DNA + occult blood screening , QL, stool 2023 024 [facility] (Cologuard Orders Only), [address], [address], [place], [address], 11/22/2023 13:59:23 lipid panel, serum 2023 024 [facility], [address], [address], [place], [address], 11/28/2023 08:28:52 CMP, serum or plasma 2023 024 [facility], [address], [place], [address], 11/28/2023 08:28:52 Referral None recorded. Procedures None recorded. Surgeries None recorded. Imaging MAMMO, screening , digital, bilateral - Please call pt to schedule 2023 [email or web address] [place] [address] ([facility]), [address] [place], [address], 05/31/2024 10:03:46 Medication Orders Macrobid 100 mg capsule [address] [facility], [address] [place] [address], [address], 10/26/2024 09:42:16 nitrofura ntoin macrocrys chilo 100 mg capsule [address] [facility], [address] [place] [address], [address], 08/29/2024 08:59:17 metformin ER 500 mg tablet,ex tended release 24 hr 2023 [facility] 176, [address] [place] [address], [address], 05/22/2024 08:59:46 losartan 50 mg tablet 2023 024 [facility] 176, [address] [place] [address], [address], 05/22/2024 08:59:45 atorvasta tin 20 mg tablet 2023 [facility] 176, [address] [place] [address], [address], 05/22/2024 08:59:46 Patient TargetsNo targets recorded. Patient Instructions Encounter Date Encounter Id Patient Instructions Last Modified By Organization Details Last Modified Time 12/28/2023 [id number] type 2 diabetes: care instructions [email or web address] Not available 12/28/2023 08:56:21 Reason for Referral None Reported. Results Created Date Observation Date Name Description Value Unit Range Abnormal Flag Note LastModifiedBy Organization Detail LastModifiedTime 05/17/20 24 05/17/2024 COLOG UARD cologuard result Cancel led - Order d not applic able Not Available [facility] (Cologuard Orders Only) [address], [place], [address], 05/17/2024 08:12:50 11/22/19 24 11/22/2023 COLOG UARD cologuard result Cancel led - Duplic ate Order not applic able Not Available [facility] (Cologuard Orders Only) [address], [place], [address], 11/22/2023 13:59:23 12/17/19 24 12/18/2023 LIPID PANEL , STAND JAMES cholesterol, total 155 mg/dL <200 normal Not Available [address], [address], 12/18/2023 14:18:14 12/17/19 24 12/18/2023 LIPID PANEL , STAND JAMES HDL cholesterol 54 mg/dL > or = 50 normal Not Available [address], [address], 12/18/2023 14:18:14 12/17/19 24 12/18/2023 LIPID PANEL , STAND JAMES triglyceride s 110 mg/dL <150 normal Not Available [address], [address], 12/18/2023 14:18:14 12/17/19 24 12/18/2023 LIPID PANEL [...] calcu lated using the Dasia n-Hop kins sofyu letty n, which is a valid ated novel radha bernal r accur acy than the Fried iliana equat ion in the estim ation of LDL-C . Dasia ruby SS et al. MADAN. 2013; 310(1 9): 2061- 2068 (http ://ed ucati on.Qu estDi annalisa tics. com/f aq/FA Q164) Not Available [address] [address] [place], [address], 12/18/2023 14:18:14 12/17/19 24 12/18/2023 LIPID PANEL , STAND JAMES chol/HDLC ratio 2.9 (calc ) <5.0 normal Not Available [address] [address] [place], [address], 12/18/2023 14:18:14 12/17/19 24 12/18/2023 LIPID PANEL , STAND JAMES non HDL cholesterol 101 mg/dL _(sabas c) <130 normal For patie nts with diabe yue plus 1 major ASCVD risk facto r, treat ing to a non-H DL-C goal of <100 mg/dL (LDL- C of <70 mg/dL ) is consi thelma vinson optio n. Not Available [address] [address] [place], [address], 12/18/2023 14:18:14 12/17/19 24 12/18/2023 TSH+F REE T4 TSH 2.31 mIU/L 0.40-4 .50 normal Not Available [address] [address] [place], [address], 12/18/2023 14:18:17 12/17/19 24 12/18/2023 TSH+F REE T4 T4, free 1.1 NG/dL 0.8-1. 8 normal Not Available [address] [address] [place], [address], 12/18/2023 14:18:17 12/17/19 24 12/18/2023 COMPR EHENS SKIP METAB OLIC PANEL glucose 131 mg/dL 65-99 high Fasti ng refer ence inter beau For someo ne witho ut known diabe yue, a gluco se value >125 mg/dL indic ates that they may have diabe yue and this shoul d be confi rmed with a ruth w-up test. Not Available [address], [address], 12/18/2023 14:18:18 12/17/19 24 12/18/2023 COMPR EHENS SKIP METAB OLIC PANEL urea nitrogen (BUN) 16 mg/dL 7-25 normal Not Available [address], [address], 12/18/2023 14:18:18 12/17/19 24 12/18/2023 COMPR EHENS SKIP METAB OLIC PANEL creatinine 0.64 mg/dL 0.50-1 .03 normal Not Available [address], [address], 12/18/2023 14:18:18 12/17/19 24 12/18/2023 COMPR EHENS SKIP METAB OLIC PANEL eGFR 103 mL/mi n/1.7 3m2 > or = 60 normal Not Available [address], [address], 12/18/2023 14:18:18 12/17/19 24 12/18/2023 COMPR EHENS SKIP METAB OLIC PANEL BUN/creatini ne ratio SEE NOTE: (calc ) 6-22 Not Repor rivera: BUN and Creat inine are withi n refer ence range . Not Available [address], [address], 12/18/2023 14:18:18 12/17/19 24 12/18/2023 COMPR EHENS SKIP METAB OLIC PANEL sodium 138 mmol/ L 135-14 6 normal Not Available [address], [address], 12/18/2023 14:18:18 12/17/19 24 12/18/2023 COMPR EHENS SKIP METAB OLIC PANEL potassium 4.1 mmol/ L 3.5-5. 3 normal Not Available [address], [place], [address], 12/18/2023 14:18:18 12/17/19 24 12/18/2023 COMPR EHENS SKIP METAB OLIC PANEL chloride 105 mmol/ L 98-110 normal Not Available [facility] [address], [address], 12/18/2023 14:18:18 12/17/19 24 12/18/2023 COMPR EHENS SKIP METAB OLIC PANEL carbon dioxide 25 mmol/ L 20-32 normal Not Available [facility] [address], [address], 12/18/2023 14:18:18 12/17/19 24 12/18/2023 COMPR EHENS SKIP METAB OLIC PANEL calcium 9.1 mg/dL 8.6-10 .4 normal Not Available [facility] [address], [address], 12/18/2023 14:18:18 12/17/19 24 12/18/2023 COMPR EHENS SKIP METAB OLIC PANEL protein, total 7.1 g/dL 6.1-8. 1 normal Not Available [facility] [address], [address], 12/18/2023 14:18:18 12/17/19 24 12/18/2023 COMPR EHENS SKIP METAB OLIC PANEL albumin 3.9 g/dL 3.6-5. 1 normal Not Available [facility] [address], [address], 12/18/2023 14:18:18 12/17/19 24 12/18/2023 COMPR EHENS SKIP METAB OLIC PANEL globulin 3.2 g/dL_ (calc ) 1.9-3. 7 normal Not Available [facility] [address], [address], 12/18/2023 14:18:18 12/17/19 24 12/18/2023 COMPR EHENS SKIP METAB OLIC PANEL albumin/glob ulin ratio 1.2 (calc ) 1.0-2. 5 normal Not Available [address], [address], 12/18/2023 14:18:18 12/17/19 24 12/18/2023 COMPR EHENS SKIP METAB OLIC PANEL bilirubin, total 0.6 mg/dL 0.2-1. 2 normal Not Available [address], [address], 12/18/2023 14:18:18 12/17/19 24 12/18/2023 COMPR EHENS SKIP METAB OLIC PANEL alkaline phosphatase 109 U/L 37-153 normal Not Available [address] [address] [place], [address], 12/18/2023 14:18:18 12/17/19 24 12/18/2023 COMPR EHENS SKIP METAB OLIC PANEL AST 27 U/L 10-35 normal Not Available [address], [address], 12/18/2023 14:18:18 12/17/19 24 12/18/2023 COMPR EHENS SKIP METAB OLIC PANEL ALT 30 U/L 6-29 high Not Available [address], [address], 12/18/2023 14:18:18 12/17/19 24 12/18/2023 HEMOG LOBIN [...] Curre ntly, no conse nsus exist s amanda jon use of hemog lobin A1c for diagn osis of diabe yue for child stew. This test was perfo rmed on the [facility] nirav c503 platf orm. Effec tive , a canela e in test platf orms from the [facility] to the [facility] nirav c503 may have shift ed HbA1c resul ts hima red to histo rical resul ts. Based on labor atory valid ation testi ng condu cted at [facility] , the [facility] platf orm relat skip to the [facility] platf orm had an avera ge incre [...] is not recom edith d. Not Available [facility] [address] [address], [place], [address], 12/18/2023 14:18:19 05/04/20 24 05/04/2024 HEMOG LOBIN [...] diabe yue for child stew. Not Available [facility] [address] [address] , [place], [address], 05/04/2024 23:18:12 05/22/2005/22/2024 urina lysis , dipst ick Leukocytes (reference range: negative zarina/ l) Large Not Available [address], [address], 05/22/2024 08:52:40 05/22/2005/22/2024 urina lysis , dipst ick Nitrite (reference rage: negative mg/dl) negati ve Not Available [address], [address], 05/22/2024 08:52:40 05/22/2005/22/2024 urina lysis , dipst ick Urobilinogen (reference range: 0.2-1 mg/dl) 0.2 Not Available [address], [address], 05/22/2024 08:52:40 05/22/2005/22/2024 urina lysis , dipst ick Protein (reference range: negative mg/dl) Negati ve Not Available [address], [address], 05/22/2024 08:52:40 05/22/20 24 05/22/2024 urina lysis , dipst ick pH (reference range: 5-7) 5.0 Not Available [address], [address], 05/22/2024 08:52:40 05/22/2005/22/2024 urina lysis , dipst ick Blood (reference range: negative Demario/ l) Small Not Available [address], [address], 05/22/2024 08:52:40 05/22/2005/22/2024 urina lysis , dipst ick Specific Spalding (reference range: 1.005-1.030) 1.000 Not Available [address], [address], 05/22/2024 08:52:40 05/22/2005/22/2024 urina lysis , dipst ick Ketone (reference range: negative mg/dl) Trace Not Available [address], [address], 05/22/2024 08:52:40 05/22/2005/22/2024 urina lysis , dipst ick Bilirubin (reference range: negative mg/dl) Negati ve Not Available [address], [address], 05/22/2024 08:52:40 05/22/2005/22/2024 urina lysis , dipst ick Glucose (reference range: negative mg/dl) Negati ve Not Available [address], [address], 05/22/2024 08:52:40 05/22/2005/22/2024 urina lysis , dipst ick Appearance Clear Not Available [address], [address], 05/22/2024 08:52:40 05/22/20 24 05/22/2024 urina lysis , dipst ick Color Dark Yellow Not Available [address], [address], 05/22/2024 08:52:40 08/29/19 25 08/29/2024 urina lysis , dipst ick Leukocytes (reference range: negative zarina/ l) Small Not Available [address], [address], 08/29/2024 09:12:47 08/29/19 25 08/29/2024 urina lysis , dipst ick Nitrite (reference rage: negative mg/dl) negati ve Not Available [address], [address], 08/29/2024 09:12:47 08/29/19 25 08/29/2024 urina lysis , dipst ick Urobilinogen (reference range: 0.2-1 mg/dl) 0.2 Not Available [address], [address], 08/29/2024 09:12:47 08/29/19 25 08/29/2024 urina lysis , dipst ick Protein (reference range: negative mg/dl) Negati ve Not Available [address], [address], 08/29/2024 09:12:47 08/29/19 25 08/29/2024 urina lysis , dipst ick pH (reference range: 5-7) 5.0 Not Available [address], [address], 08/29/2024 09:12:47 08/29/19 25 08/29/2024 urina lysis , dipst ick Blood (reference range: negative Demario/ l) Non-He molyze d: Trace Not Available [address], [address], 08/29/2024 09:12:47 08/29/1908/29/2024 urina lysis , dipst ick Specific Spalding (reference range: 1.005-1.030) 1.005 Not Available [address], [address], 08/29/2024 09:12:47 08/29/1908/29/2024 urina lysis , dipst ick Ketone (reference range: negative mg/dl) Negati ve Not Available [address], [address], 08/29/2024 09:12:47 08/29/1908/29/2024 urina lysis , dipst ick Bilirubin (reference range: negative mg/dl) Negati ve Not Available [address], [address], 08/29/2024 09:12:47 08/29/1908/29/2024 urina lysis , dipst ick Glucose (reference range: negative mg/dl) Negati ve Not Available [address], [address], 08/29/2024 09:12:47 08/29/1908/29/2024 urina lysis , dipst ick Appearance Clear Not Available [address], [address], 08/29/2024 09:12:47 08/29/19 25 08/29/2024 urina lysis , dipst ick Color Pale Yellow Not Available [facility] [address] [facility], [place], [address], 08/29/2024 09:12:47 06/07/20 24 06/07/2024 MAMMO , scree mitzy, digit al, bilat eral No observ ation record ed. [facility] [address] [place], [address], 06/07/2024 17:42:04 09/05/19 25 09/04/2024 CT, abdom en + pelvi s, w/ contr ast No observ ation record ed. [address] [address], [place], [address], 09/05/2024 08:52:54 09/07/19 25 09/07/2024 US, bladd er No observ ation record ed. [address] [address], [place], [address], 09/11/2024 12:41:24 09/10/19 25 09/10/2024 imagi ng/di agnos tic resul t No observ ation record ed. [address] [address], [place], [address], 09/11/2024 11:06:53 11/03/19 25 11/02/2024 XR, pyelo gram No observ ation record ed. [address] [address], [place], [address], 11/02/2024 17:01:23 Result Notes None recorded. Problems Name Problem SNOMED Code Status Onset Date Resolution Date Notes Provider Name and Address Organization Details Recorded Time Enriquedonissridhar briceno [id number] Completed 10/26/2024 AGUEDA Howe [address] [facility], [address], [place], [address] , [facility] 03/28/202 5 09:56:46 Mammograph y abnormal 986783509 Active Not Available [facility] 3 08:10:19 Increased blood pressure 32679484 Completed 10/26/2024 AGUEDA Howe [address], [address], [place], [address] , [employer] [facility] [employer] [facility] 5 09:56:46 Menorrhagi a 391750406 Active Not Available [facility] 3 08:10:19 Dizziness 723025508 Completed 10/26/2024 AGUEDA Howe [address], [address], [place], [address] , [employer] [facility] 5 09:56:46 History of polyp of colon 825826741 Completed 201710/26/2024 AGUEDA Howe [address], [address], [place], [address] , [facility] 5 09:56:46 Hyperlipid emia 22530475 Active Not Available [facility] 3 08:10:19 Essential hypertensi on 28795912 Active 2021 Not Available [facility] 3 08:10:19 Increased liver function 73000004 Active Not Available [facility] 3 08:10:20 Snoring 92126959 Active Not Available [facility] 3 08:10:20 Candidiasi s 92863294 Completed 10/26/2024 AGUEDA Howe [address], [address], [place], [address] , [employer] [facility] 5 09:56:46 Urge incontinen ce of urine 21493824 Completed 10/26/2024 AGUEDA Howe [address], [address], [place], [address] , [employer] [facility] [employer] [facility] 5 09:56:46 Benign essential hypertensi on 9882509 Completed 202210/26/2024 AGUEDA Howe [address], [address], [place], [address] , [facility] [place] [facility] 5 09:56:46 Acute otitis externa 31157545 Completed 202210/26/2024 AGUEDA Howe [address], [address], [place], [address] , [place] [facility] 5 09:56:46 Obese 692440021 Active 2022 Jackie Justin NP [address], [address], [place], [address] , [place] [facility] [employer] 3 13:49:57 Prediabete s 575134812 Completed 202205/22/2024 AGUEDA Howe [address], [address], [place], [address] , [facility] [place] [facility] [employer] [facility] [employer] 4 08:59:32 Hyperglyce kamaljit 08357947 Completed 202205/22/2024 AGUEDA Howe [address], [address], [place], [address] , [email or web address] [facility] [employer] [facility] [employer] 4 08:59:29 Pruritic rash 35762954 Completed 202210/26/2024 AGUEDA Howe [address], [address], [place], [address] , [facility] 5 09:56:46 Type 2 diabetes mellitus 97058839 Active 2023 AGUEDA Howe [address], [address], [place], [address] , [facility] [place] [facility] [place] [facility] [employer] 4 08:56:18 Urinary symptoms 138720225 Completed 202310/26/2024 AGUEDA Howe [address], [address], [place], [address] , [facility] [place] [facility] [employer] 09:56:46 Acute cystitis 01098315 Completed 202410/26/2024 AGUEDA Howe [address] [facility], [address] [address], [place], [address] , [facility] [employer] [facility] 5 09:56:46 Dysfunctio n of urinary bladder 41148798 Active 2024 AUGEDA Howe [address] [facility], [facility] [address], [place], [address] , [facility] [employer] [facility] 09:56:59 Problem Notes None recorded. Procedures Surgical History Date Name Laterality Status Provider Name and Address Organization Details Recorded Time 10/27/19 25 Cerumen Removal completed AGUEDA Howe [address] [facility], [facility] [address], [place], [address], [facility] [employer] [facility] 10/26/2024 10:24:46 08/29/19 25 Date of Last Pap Smear completed Jackie Manuel RN [facility] [employer] [facility] 08/29/2024 09:04:07 06/01/20 24 Most Recent Mammogram completed Jackie Manuel RN [facility] [employer] [facility] 08/29/2024 09:03:06 08/01/19 12 Date of Last Colonoscopy completed Not Available [facility] 09/29/2022 08:05:51 Cholecystectomy completed Not Available [facility] 09/29/2022 08:05:51 Tubal Ligation completed Not Available [facility] 09/29/2022 08:05:51 Imaging Results Imaging Date Name Status LastModified by Organiz ation Details LastModified Time 06/07/2024 MAMMO, screening, digital, bilateral completed [facility] [address] [facility], [place], [address], 06/07/2024 17:42:04 09/04/2024 CT, abdomen + pelvis, w/ contrast completed [address], [address], 09/05/2024 08:52:54 09/07/2024 US, bladder completed [address] [facility] [address], [place], [address], 09/11/2024 12:41:24 09/10/2024 imaging/diagno stic result completed [address] [facility] [address], [place], [address], 09/11/2024 11:06:53 11/02/2024 XR, pyelogram completed [facility] [address] [facility] [address], [place], [address], 11/02/2024 17:01:23 Procedure Notes None recorded. Medical Equipment None [...] administ ered by the provider 10/29 completed [facility]: [id number] 11-18 Not Available Not Available Not [...] administ ered by the provider 10/29 completed [facility]: [phone] [id number] Not Available Not Available Not Available Vitals Date Recorded Body height Body mass index (BMI) Body weight Body temperature Heart rate Respiratory rate Oxygen saturation Oxygen saturation in Arterial blood by Pulse oximetry Pain severity - 0-10 verbal numeric rating [Score] - Reported Provider Name and Address Organization Details Last Updated DateTime 4 160.02 cm 45.9 kg/m2 375612. 42 g 96.5 [degF] 66 /min 20 /min 98 % 98 % 0 Jackie Manuel RN [facility] [employer] [facility] 4 09:27:16 Date Recorded Systolic blood pressure Diastolic blood pressure Provider Name and Address Organization Details Last Updated DateTime 11/21/2023 138 mm[Hg] 82 mm[Hg] Shelly Gardiner, OTR [employer] [address] [facility], [facility] [address], [place], [address], [facility] [employer] [facility] 11/21/2023 09:47:27 Date Recorded Body height Body mass index (BMI) Body weight Body temperature Heart rate Oxygen saturation Oxygen saturation in Arterial blood by Pulse oximetry Systolic blood pressure Diastolic blood pressure Provider Name and Address Organization Details Last Updated DateTime 4 160.02 cm 45.5 kg/m2 804783. 59 g 97.3 [degF] 70 /min 97 % 97 % 150 mm[Hg] 87 mm[Hg] Racquel Salinas MA [facility] [employer] [facility] 08:40:26 Date Recorded Body height Body mass index (BMI) Body weight Body temperature Heart rate Respiratory rate Oxygen saturation Oxygen saturation in Arterial blood by Pulse oximetry Pain severity - 0-10 verbal numeric rating [Score] - Reported Systolic blood pressure Diastolic blood pressure Provider Name and Address Organization Details Last Updated DateTime 4 160.02 cm 42.2 kg/m2 578106. 43 g 97.3 [degF] 63 /min 20 /min 97 % 97 % 0 148 mm[Hg] 84 mm[Hg] Jackie Manuel RN [facility] [employer] [facility] 08:40:33 Date Recorded Body height Body mass index (BMI) Body weight Body temperature Heart rate Respiratory rate Oxygen saturation Oxygen saturation in Arterial blood by Pulse oximetry Pain severity - 0-10 verbal numeric rating [Score] - Reported Systolic blood pressure Diastolic blood pressure Provider Name and Address Organization Details Last Updated DateTime 5 160.02 cm 43.5 kg/m2 406771. 88 g 97.5 [degF] 71 /min 20 /min 97 % 97 % 0 142 mm[Hg] 86 mm[Hg] Jackie Manuel RN [facility] [employer] [facility] 09:02:13 Date Recorded Body height Body mass index (BMI) Body weight Body temperature Heart rate Respiratory rate Oxygen saturation Oxygen saturation in Arterial blood by Pulse oximetry Pain severity - 0-10 verbal numeric rating [Score] - Reported Systolic blood pressure Diastolic blood pressure Provider Name and Address Organization Details Last Updated DateTime 5 160.02 cm 41.6 kg/m2 214887. 56 g 97.2 [degF] 77 /min 20 /min 99 % 99 % 0 170 mm[Hg] 86 mm[Hg] Jackie Manuel RN [facility] [employer] [facility] 09:45:06 Social History Question Answer Notes LastModified by Organizat ion Details LastModified Time Tobacco Smoking Status Never Smoker Jackie Manuel RN [facility] [employer] [facility] 04/27/2023 14:30:54 Do You Have An Advance Directive? Yes Information not available 04/27/2023 What Is Your Level Of Alcohol Consumption? 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 Yes Information not available 04/27/2023 How Many [...] Anxious, Or Unable To Sleep At Night)? [id number] Information not available 10/26/2024 Do You Use Sunscreen Routinely? No Information not available 04/27/2023 Have You Recently Traveled Abroad? No Information not available 04/27/2023 Do You Or Have You Ever Used Any Other Forms Of Tobacco Or Nicotine? No [email or web address] Information not available 04/27/2023 Sex: Female Functional Status Question Answer Note LastModified by Organizat ion Details LastModified Time What is your exercise level? Occasional Information not available 04/27/2023 Mental Status None recorded. Family History Relationship Description Onset Age of this Age Resolved Age Notes LastModified by Organization Details LastModified Time Father Heart disease [id number] Not available 09/29/2022 08:05:55 Father Diabetes mellitus [id number] Not available 09/29/2022 08:05:55 Father Family history of stroke [email or web address] Not available 2024 09:35:09 Father Essential hypertension [email or web address] Not available 09:35:09 Mother Heart disease [id number].915 [id number] Not available 09/29/2022 08:05:55 Mother Family history of stroke [email or web address] Not available 2024 09:35:09 Mother Essential hypertension [email or web address] Not available 09:35:09 Brother Diabetes mellitus [id number] Not available 09/29/2022 08:05:55 Sister Diabetes mellitus [id number] Not available 09/29/2022 08:05:55 Medical History Condition Response OBESITY Y DIABETES, TYPE Y KIDNEY DISEASE Y HYPERTENSION Y HIGH CHOLESTEROL / HYPERLIPIDEMIA [...] quadrivalent, PF 3 completed Jackie Manuel RN null, [place] - S [place] [facility] 05/18/2023 10:20:09 Influenza, split virus, trivalent, preservative 5 completed Not Available [facility] 09/29/2022 08:15:11 Influenza, split virus, trivalent, preservative 4 completed Not Available [facility] 09/29/2022 08:15:12 Influenza, split virus, trivalent, preservative 3 completed Not Available [facility] 09/29/2022 08:15:12 Tdap 8 completed Not Available [facility] 09/29/2022 08:15:12 Past Encounters Encounter ID Performer Location Encounter Start Date Encounter Closed Date Diagnosis/Indication Diagnosis SNOMED-CT Code Diagnosis ICD10 Code Diagnosis Note [id number] [facility] [address] [address] 11/11/2020 00:00:00 11/11/2020 18:37:33 [id number] [facility] [address] [place] [address] 06/08/2021 00:00:00 06/08/2021 10:22:53 [id number] [facility] [address] [place] [address] 07/07/2021 00:00:00 07/07/2021 09:56:39 [id number] [facility]_[address] [address] 10/29/2021 00:00:00 10/29/2021 08:43:15 [id number] [facility]_[address] [address] 11/19/2021 00:00:00 11/19/2021 08:49:59 [id number] [facility]_[address] [address] 01/07/2022 00:00:00 01/07/2022 09:42:10 [id number] Jackie Justin NP S_[address] [address] 10/08/2022 15:06:03 10/08/2022 15:55:49 Essential hypertension 21858883 I10 Losartan 50 mg po daily Hyperlipidemia 64377040 E78.5 Atorvastat in 20 mg po daily. Anemia screening 7532171 07 Z13.0 Diabetes m ellitus screening 988681400 Z13.1 Thyroid di sorder screening 308748250 Z13.29 Acute otitis externa 302 38305 H60.509 CiproDex 4 gtts bilateral ears for 7 days. [id number] Jackie Justin NP [facility] [address] [place] [address] 04/27/2023 14:07:02 04/27/2023 15:26:02 Adult health examination 010542047 Z00.00 Encouraged well balanced meals, active lifestyle, and routine vision and dental appts. Essential hypertension 40691314 I10 Losartan 50 mg po daily< 2 gm sodium diet. Hyperlipidemia 33481539 E78.5 Atorvastat in 20 mg po daily.Low fat diet. Obese 204842231 E66.9 Diet and exercise to reduce BMI closer to <25. Screening for malignant neoplasm of breast 415693686 Z12.39 mammogram ordered 04/27/23 Screening for malignant neoplasm of colon 022799272 Z12.11 GI referral for Colonoscop y Last in 2011. Prediabetes 890256255 R7 3.03 A1C October 2022 6.2 with fasting glucose 88.A1C and CMP ordered. Hyperglycemia 15610305 R 73.9 A1C and CMP Pruritic rash 23008950 L 28.2 right ear- triamcinol one cream [id number] Jackie Justin NP [facility] [address] [place] [address] 05/18/2023 08:22:29 05/18/2023 09:04:36 Screening for malignant neoplasm of colon 729839555 Z12.11 GI referral for Colonoscop y Last in 2011.Colog uard ordered 05/18/23. Gynecologi c examination 95584426 Z01.419 Encouraged well balanced meals, active lifestyle, and routine vision and dental appts. Administra tion of influenza vaccine 21475688 Z23 [id number] AGUEDA Howe [facility] [address] [place] [address] 11/21/2023 09:13:23 11/21/2023 10:01:35 Screening for malignant neoplasm of colon 579048187 Z12.11 Hyperlipidemia 39823844 E78.5 Prediabetes 568027351 R7 3.03 Obesity 252591322 E66.9 Screening mammography 24 629254 Z12.31 [id number] [address] 12/28/2023 08:24:37 12/28/2023 09:03:51 Type 2 diabetes mellitus 00247729 E11.9 Will consider GLP1 after next A1C [id number] AGUEDA Howe [address] [address] 05/22/2024 08:25:35 05/22/2024 09:03:57 Type 2 diabetes mellitus 24934776 E11.9 A1C decreasing with diet and lifestyle changes. Currently taking Metformin 500 mg daily.Will continue this regimen Urinary symptoms 2452251 08 R39.9 Essential hypertension 17582773 I10 Hyperlipidemia 64008784 E78.5 [id number] AGUEDA Howe [address] [address] 08/29/2024 08:41:07 08/29/2024 09:25:53 Gynecologic examination 69302426 Z01.419 Normal mammo, 06/07/2024 Patient does annual PAP for peace of mindNo concerns todayDiscu ssed vaginal hygiene and safe sex practicesP AP sample collected and sent to lab Acute cystitis 80513818 N30.01 Recurrent, will recheck dip 1 week post abx [id number] AGUEDA Howe [address] [address] 10/26/2024 09:18:58 10/26/2024 10:32:46 Dysfunction of urinary bladder 33753164 R39.89 Requires catheteriz ation. Has establish with urology.CT Urogram scheduled for 11/02/24MRI spine scheduled for 11/05/24 Type 2 mynor betes mellitus 25913480 E11.9 A1C decreasing with diet and lifestyle changes. Currently taking Metformin 500 mg daily.Will continue this regimen Essential hypertension 46824583 I10 Elevated today, will monitor BP at home and FU in 3 months. Health Concerns Section Related Observation LastModified by Organization Detai ls LastModified Time None Recorded Concern Status LastModified by Organization Details LastModified Time None Recorded Advance Directives Directive Y: Payers Encounter Date Sequence Insurance Name Policy Number Policy Gaytan Covered Member ID Gaytan Member ID Guarantor Name 11/21/2023 1 [employer] [id number] Farzaneh Y Ng [id number] Farzaneh Y Ng 12/28/2023 1 [employer] [id number] Farzaneh Y Ng [id number] Farzaneh Y Ng 05/22/2024 1 [employer] [id number] Farzaneh Y Ng [id number] Farzaneh Y Ng 08/29/2024 1 [employer] ([employer]) [id number] Farzaneh Y Ng [id number] Farzaneh Y Ng 10/26/2024 1 [employer] (PPO) [id number] Farzaneh Y Ng [id number] Farzaneh Y Ng Notes Date Note Type [...] cologuard ordered today AGUEDA Howe [address], [place], [address], [employer] [facility] [employer] 11/21/2023 09:56:51 12/28/2023 text/html Farzaneh Ng is [...] Current LDL 80. AGUEDA Howe [address], [place], [address], [employer] [facility] [employer] 12/28/2023 09:02:22 05/22/2024 text/html Farzaneh Ng is [...] BP recheck 138/74 AGUEDA Howe [address], [place], [address], [employer] [facility] [employer] 05/22/2024 09:01:24 08/29/2024 text/html Pap/PelvicReport ed bypatient.Context:flex [...] and increased frequency AGUEDA Howe [address], [address] [employer], [place], [address], [employer] 08/29/2024 09:29:32 10/26/2024 text/html Farzaneh Ng is a 59 year old female patient here today to follow up on recent urinary issues Was hospitalized at [facility] in September for bladder dysfunction, renal failure, [...] 2 DM - last A1C 6.1 05/04/2024 AGUEDA Howe [address], [employer], [place], [address], [employer] 10/26/2024 10:24:52 OBGyn Episode No OBEpisode recorded.
--- OUTSIDE RECORDS SUMMARY | 2024-11-05 08:34 | XMS_ITS | Clinical Summary ---
Author Organization [facility] Address [address] [place] [address] Care Team Providers Care Ventilating Equipment Installer Name Role Phone Odalis Mcnally MD Primary Care Provider [phone] Source Comments [facility],non-owned Affiliates and Associated Physician Practices is amultiple site organization consisting of ambulatory clinics and hospital sitesin [place], [place], [place] and [place]. This disclosure is being madepursuant to the Care Everywhere program and may not contain all information available regarding this patient. Last updated 18.[facility] Allergies No known active allergies Medications * [...] VACCINE (1 - 2023-2 5 season) 2024 DEPRESSION SCREENING 08/01/2024 INFLUENZA VACCINE (Season Ended) 2025 HIB VACCINE Aged Out No longer eligi [...] age to complete this topic Care Teams Ventilating Equipment Installer Relationship Specialty Start Date End Date Odalis Mcnally MD [address] [place] [phone] PCP - General Family Medicine 01/20/18
== END 2024-11-05 08:18 | disposition home or self-care (01) ==
PROVIDERS: Visit Provider Urology
DX: R33.8 Other retention of urine (principal); M51.26 Other intervertebral disc displacement, lumbar region
CPT/HCPCS: 72158; A9579

== ENCOUNTER 2025-01-28 11:07 | Emergency (ER) | payer OTHER, SELFPAY ==
[2025-01-28 11:17] VITALS: BP 159/91; PULSE 81; RESP 16; TEMP 36.8; O2SAT 98
--- NOTE | 2025-01-28 11:21 | ED.EAR ---
HPI - Ear Problem General Chief complaint: Ear Stated complaint: Left Ear Irritation/Congestion Time Seen by Provider: 01/28/25 11:20 Source: patient Mode of arrival: ambulatory Limitations: no limitations History of Present Illness HPI Narrative: Please is a 59-year-old female patient presenting to the clinic today with complaints of left ear pain x1 week and sinus congestion x1 day. Reports she did feel slightly dizzy today while at work. Denies any chest pain or shortness of breath. Blood pressure was 128 systolic at home. No fevers, chills, or body aches. No recent swimming. Related Data Home Medications ?Medication ?Instructions ?Recorded ?Confirmed ?Last Taken ?Type atorvastatin 20 mg tablet 20 mg PO QPM 10/22/21 10/22/24 Unknown History losartan 50 mg tablet 50 mg PO DAILY 09/04/24 10/22/24 09/04/24 History metformin 500 mg tablet,extended 500 mg PO QPM 09/04/24 10/22/24 Unknown History release 24 hr Allergies Allergy/AdvReac Type Severity Reaction Status Date / Time No Known Allergies Allergy Verified 01/28/25 11:30 Review of Systems Review of Systems: Pertinent positives per HPI. Patient denies any fever, chills, rash, headache, visual changes, cough, shortness of breath, chest pain, palpitations, nausea, vomiting, diarrhea, constipation, abdominal pain, or any urinary issues. [facility] Past Medical History Medical History Hyperlipidemia Hypertension Diabetes mellitus Family History Family History Mother Hypertension Father Cerebrovascular accident Social History Social History Years smoked: 1 Smoking status: Former smoker Tobacco type: cigarettes Alcohol intake: current Alcohol use details: RARE GLASS OF WINE Substance use: never Substance use type: does not use Do You Feel Safe in your Home?: No Lack of Transportation: No Lack of Food: Never True Current Housing: I Have Housing Concerned About Future Housing: No Difficulty Paying Gas/Electric Bills: No Difficulty Paying for Meds: No Currently Unemployed: No Education: Trade/Vocational Certificate Difficulty w/ Childcare or Family Care: No Living arrangements: with family Spiritual care concerns: No Comments At the time of my signature, I reviewed and agree with the nursing past medical, surgical, social, and family history. There is no relevant family history pertinent to the patient complaint. Exam Narrative: General: Well-developed, well nourished, in no apparent distress Head: Normocephalic, atraumatic Eyes: Pupils equally round and reactive to light bilaterally, EOM intact, sclera and conjunctive clear, no discharge, lids normal Ears: Left TMs intact and clear, right TM intact, mild bulging, fluid noted behind the TM, ear canals clear, no drainage, grossly hearing normal. Nose: Nares patent, clear nasal discharge, mild inflammation, ethmoid sinus tenderness. Mouth: Oral pharynx without lesions or masses, good dentition, MMM. Postnasal drip Neck: Supple, trachea midline, no enlargement of anterior or posterior cervical nodes, no thyroid masses or goiter palpable. Cardio: Regular rate and rhythm, s1 and s2 normal, no murmur appreciated. Resp: Clear to auscultation bilaterally, no rhonchi, rales, wheezing or rubs Course Course Emergency Course: Portions of this record may have been created with voice recognition software. Level of Care: Express Care Visit Vital Signs Vital signs: Vital Signs Temperature 36.8 C 01/28/25 11:17 Pulse Rate 81 01/28/25 11:17 Respiratory Rate 16 01/28/25 11:17 Blood Pressure 159/91 H 01/28/25 11:17 Pulse Oximetry 98 01/28/25 11:17 Oxygen Delivery Room Air 01/28/25 11:17 Temperature 36.8 C 01/28/25 11:17 Pulse Rate 81 01/28/25 11:17 Respiratory Rate 16 01/28/25 11:17 Blood Pressure 159/91 H 01/28/25 11:17 Pulse Oximetry 98 01/28/25 11:17 Oxygen Delivery Room Air 01/28/25 11:17 Vital signs reviewed Medical Decision Making MDM Narrative Medical decision making narrative: At the time of visit patient is resting comfortably on the exam table. Patient appears to be nontoxic. Plan: I suspect patient has left serous otitis and sinus congestion. Prescription for prednisone was sent to the pharmacy. Supportive measures were discussed with the patient and they voiced understanding discharge instructions and agrees to treatment plan. Return precautions reviewed Differential Diagnosis Differential Diagnosis: Otitis media, otitis externa, eustachian tube dysfunction, upper respiratory infection, serous otitis, Meniere's disease Vital Signs Vital Signs: Vital Signs Temperature 36.8 C 01/28/25 11:17 Pulse Rate 81 01/28/25 11:17 Respiratory Rate 16 01/28/25 11:17 Blood Pressure 159/91 H 01/28/25 11:17 Pulse Oximetry 98 01/28/25 11:17 Oxygen Delivery Room Air 01/28/25 11:17 Temperature 36.8 C 01/28/25 11:17 Pulse Rate 81 01/28/25 11:17 Respiratory Rate 16 01/28/25 11:17 Blood Pressure 159/91 H 01/28/25 11:17 Pulse Oximetry 98 01/28/25 11:17 Oxygen Delivery Room Air 01/28/25 11:17 Discharge Plan Discharge Clinical Impression: Left acute serous otitis media, Sinus congestion Patient Disposition: Home Condition: Stable Instructions: Antibiotic Form, Upper Respiratory Infection (ED), Fluid In The Ear (Serous Otitis Media) (ED) Additional Instructions: Take prescription medications only as prescribed-prednisone Increase fluids and stay well hydrated Tylenol/motrin for pain/fever Flonase and OTC antihistamines as directed Vicks vapor rub to open sinuses Sinus rinses for congestion Cepacol spray, cough drops, throat lozenges, warm tea with honey/lemon, gargle salt water to soothe throat BRAT diet for diarrhea Clear liquids x 24 hours then advance as tolerated for nausea/vomiting Go to the ED if you develop a worsening in your condition- high fever not controlled by Tylenol or Motrin, dehydration, weakness, lethargy, shortness of breath, or chest pain. Follow up with your PCP in 3-5 days if symptoms persist. Patient Language: Prydeinig Prescriptions: New prednisone 20 mg tablet 40 mg PO DAILY 5 Days Qty: 10 0RF No Action atorvastatin 20 mg tablet 20 mg PO QPM losartan 50 mg tablet 50 mg PO DAILY metformin 500 mg tablet extended release 24 hr 500 mg PO QPM Follow-up/Referrals: Abdifatah,Shelly Quezada, VIDEO SYSTEM REPAIRER [Primary Care Provider] - Time of Disposition: 11:30 Quality NIHSS Nursing Documentation ED NIHSS nursing documentation: reviewed/agree
[2025-01-28 11:46] VITALS: BP 162/88
== END 2025-01-28 11:44 | disposition home or self-care (01) ==
PROVIDERS: Emergency Provider Nurse Practitioner Family
DX: H65.02 Acute serous otitis media, left ear (principal); J34.89 Other specified disorders of nose and nasal sinuses; I10 Essential (primary) hypertension; E11.9 Type 2 diabetes mellitus without complications; Z79.84 Long term (current) use of oral hypoglycemic drugs; E78.5 Hyperlipidemia, unspecified; Z87.891 Personal history of nicotine dependence
CPT/HCPCS: 99213; G0463